=== PATIENT | male | born 1940 | race Caucasian/White ===

== ENCOUNTER 2025-03-15 19:17 | Inpatient (IN) | payer MEDICARE, OTHER, SELFPAY ==
[2025-03-15] VITALS (10 sets, daily range): BP systolic 100–117; BP diastolic 59–85; BMI 39.3; BMI 39.2
--- NOTE | 2025-03-15 11:44 | ED.GENMED ---
ED Provider Triage
<Adalgisa Braun PA-C - Last Filed: 03/15/25 18:20>
-
Patient seen by provider in Triage?: Seen in Triage
Attestation: A medical screening examination has been initiated by a qualified medical provider. Based on the assessment performed at this time, it has been determined that an emergent medical condition may exist and the patient has been informed
that further medical evaluation and possible additional diagnostic testing may be needed.
HPI:
GENERAL: Alert , in no apparent distress
EYE: No visual abnormalities.
NECK: Trachea midline
ENT: No visible abnormalities.
LUNGS: No acute respiratory distress
NEUROLOGICAL: Alert and oriented
SKIN: Skin intact. No visible changes.
MUSCULOSKELETAL: Moving extremities normally
PSYCH: Normal and appropriate interaction.
This is a medical evaluation conducted in person to initiate diagnostic evaluation and provide initial therapeutics. Please see further documentation by the treating clinician.
History of Present Illness
<Adalgisa Braun PA-C - Last Filed: 03/15/25 18:20>
General
Chief Complaint: Blood Pressure Problem
Time Seen by Provider: 03/15/25 14:19
<Kerwin Cui DO - Last Filed: 03/15/25 16:55>
General
Source: patient and family
History of Present Illness
History of Present Illness:
84-year-old male who presents for evaluation after presented to his primary care doctor's office hypotensive. Patient admits he was recently in the hospital for 11 days in [place]. He had atrial fibrillation and was also being evaluated for CLL.
The patient was also anemic. He was put on Eliquis. The patient states he has been profoundly short of breath with exertion. At rest he feels 'okay'. No chest pain. No fevers. Denies melena or hematochezia. Daughter states that they have the
records from this hospitalization in [place] but came back up here to see specialists. Daughter also states that the patient was cardioverted 3 times while in [place]. He was started on amiodarone
Past History
<Kerwin Cui DO - Last Filed: 03/15/25 16:55>
Past History
ED Past Medical History: Arrthythmia (Atrial fibrillation), GERD, HTN and Other (Suspected CLL, bladder stones)
ED Past Surgical History: Urological
Phy Exam
<Kerwin Cui DO - Last Filed: 03/15/25 16:55>
Physical Exam
Physical Exam:
CONSTITUTIONAL Patient alert and oriented to person, place and time. Well-appearing. Vital signs reviewed.
HEAD atraumatic, normocephalic.
EYES eyelids normal to inspection, Extraocular muscles intact, Conjunctiva normal, Sclera normal.
NECK normal range of motion, Trachea midline, no jugular venous distention.
RESPIRATORY CHEST No respiratory distress noted, Chest expansion equal, Bilateral breath sounds clear.
CARDIOVASCULAR irregularly irregular
ABDOMEN abdomen nontender, Bowel sounds normal. Mild distention noted
BACK normal inspection, no obvious deformities
UPPER EXTREMITY range of motion normal, Motor strength normal, no cyanosis, no edema.
LOWER EXTREMITY range of motion normal, Motor strength normal, no cyanosis, bilateral edema.
NEURO Speech normal, No focal motor deficits, [place] coma scale 15, Memory normal, Cranial Nerves intact to screening exam.
SKIN skin warm, dry, and normal in color.
Course
<Adalgisa Braun PA-C - Last Filed: 03/15/25 18:20>
Orders/Labs/Results
Orders:
Orders
03/15/25 11:45
Electrocardiogram (*1) Urgent
Reason for Study: Shortness of Breath
EKG- Treatment ONCE
03/15/25 14:59
Complete Blood Count/With Diff Urgent
Comprehensive Metabolic Panel Urgent
Ferritin Urgent
Comment: ADD ON
Folate Urgent
Comment: ADD ON
Free T4 Urgent
Iron Urgent
Comment: ADD ON
Magnesium Urgent
Manual Differential Urgent
NT-proBNP Urgent
TSH Reflex To Free T4 Urgent
Comment: ADD ON
Total Iron Binding Urgent
Comment: ADD ON
Troponin I Urgent
Vitamin B12 Urgent
Comment: ADD ON
03/15/25 Dinner
Cholesterol Lowering
Fluid Restriction: 1500 mL/day (50 oz)
Cholesterol Lowering: Sodium, 2 Gram
03/15/25 15:16
Add On- LAB Urgent
Tests Added?: tsh w. reflex to free t4
03/15/25 16:30
CR Chest - 2 Views Urgent
Comment:
Reason For Exam: sob
03/15/25 16:51
Furosemide [Lasix] 20 mg IV NOW STA
03/15/25 17:50
Furosemide [Lasix] 20 mg IV NOW STA
03/15/25 17:52
Add On- LAB Routine
Tests Added?: iron, ferritin, tibc, folate, vit b12
03/15/25 17:59
Admit/Transfer Patient As Directed
Co-Sign Provider:
Level of Care: Inpatient admission
Assign to:: Medical/Surgical
Physician / Group: Htay
Diagnosis: CHF
Reason for Hospitalization: IV diuretics
Expected length of stay greater than two midnights?: Yes
ELOS- Estimated Length of Stay in days: 3
I certify the patient meets the requirements for IP care: Yes
PRN Pain Medication Management As Directed
May give lesser potent ordered pain med per pt: Yes
preference::
Protocol:: Medication orders for pain may be administered in a
manner that supports deferring to patient preference
when the pt is:
- Requesting an ordered lesser potent pain medication.
Least to most potent pain medications are defined
as: acetaminophen < NSAID < tramadol < opioids
(morphine, oxycodone, hydromorphone).
- Requesting a lesser dose of the same medication IF
ORDERED.
- Requesting a less intrusive route of administration
if both routes are prescribed by the provider (PO <
IV).
03/15/25 18:01
Code Status As Directed
Resuscitation Status: Full Code
Abnormal Lab Results
03/15/25
14:59
RBC 2.89 L 10^6/uL
(4.70-6.10)
Hgb 8.3 L g/dL
(13.0-18.0)
Hct 26.3 L %
(39.0-52.0)
MCHC 31.6 L g/dL
(33.0-37.0)
RDW 18.7 H %
(11.5-14.5)
Plt Count 90 L 10^3/uL
(130-400)
MPV 12.3 H fL
(7.4-10.4)
Segmented Neutrophils 40 L %
(42-75)
Monocytes (Manual) 23 H %
(2-9)
Sodium 134 L mmol/L
(135-145)
BUN 24 H mg/dl
(9-20)
Creatinine 1.4 H mg/dL
(0.7-1.3)
Glucose 118 H mg/dl
(70-99)
Calcium 7.8 L mg/dl
(8.4-10.2)
AST 13 L U/L
(17-59)
Total Protein 5.3 L g/dl
(6.3-8.2)
Albumin 3.0 L g/dl
(3.5-5.0)
TSH (Reflex) 6.15 H uIU/ml
(0.47-4.68)
03/15/25 14:59
03/15/25 14:59
Vital Signs
Initial and Last Documented VS:
Initial Vital Signs
Temp Pulse Resp BP Pulse Ox
97.8 F 80 18 100/64 96
03/15/25 11:30 03/15/25 11:30 03/15/25 11:30 03/15/25 11:30 03/15/25 11:30
Last Documented Vital Signs
Temp Pulse Resp BP Pulse Ox
97.8 F 78 17 117/85 95
03/15/25 11:30 03/15/25 16:45 03/15/25 16:45 03/15/25 17:45 03/15/25 16:45
<Kerwin Cui, DO - Last Filed: 03/15/25 16:55>
Orders/Labs/Results
Orders:
Orders
03/15/25 11:45
Electrocardiogram (*1) Urgent
Reason for Study: Shortness of Breath
EKG- Treatment ONCE
03/15/25 14:59
Complete Blood Count/With Diff Urgent
Comprehensive Metabolic Panel Urgent
Ferritin Urgent
Comment: ADD ON
Folate Urgent
Comment: ADD ON
Free T4 Urgent
Iron Urgent
Comment: ADD ON
Magnesium Urgent
Manual Differential Urgent
NT-proBNP Urgent
TSH Reflex To Free T4 Urgent
Comment: ADD ON
Total Iron Binding Urgent
Comment: ADD ON
Troponin I Urgent
Vitamin B12 Urgent
Comment: ADD ON
03/15/25 Dinner
Cholesterol Lowering
Fluid Restriction: 1500 mL/day (50 oz)
Cholesterol Lowering: Sodium, 2 Gram
03/15/25 15:16
Add On- LAB Urgent
Tests Added?: tsh w. reflex to free t4
03/15/25 16:30
CR Chest - 2 Views Urgent
Comment:
Reason For Exam: sob
03/15/25 16:51
Furosemide [Lasix] 20 mg IV NOW STA
03/15/25 17:50
Furosemide [Lasix] 20 mg IV NOW STA
03/15/25 17:52
Add On- LAB Routine
Tests Added?: iron, ferritin, tibc, folate, vit b12
03/15/25 17:59
Admit/Transfer Patient As Directed
Co-Sign Provider:
Level of Care: Inpatient admission
Assign to:: Medical/Surgical
Physician / Group: Htay
Diagnosis: CHF
Reason for Hospitalization: IV diuretics
Expected length of stay greater than two midnights?: Yes
ELOS- Estimated Length of Stay in days: 3
I certify the patient meets the requirements for IP care: Yes
PRN Pain Medication Management As Directed
May give lesser potent ordered pain med per pt: Yes
preference::
Protocol:: Medication orders for pain may be administered in a
manner that supports deferring to patient preference
when the pt is:
- Requesting an ordered lesser potent pain medication.
Least to most potent pain medications are defined
as: acetaminophen < NSAID < tramadol < opioids
(morphine, oxycodone, hydromorphone).
- Requesting a lesser dose of the same medication IF
ORDERED.
- Requesting a less intrusive route of administration
if both routes are prescribed by the provider (PO <
IV).
03/15/25 18:01
Code Status As Directed
Resuscitation Status: Full Code
Abnormal Lab Results
03/15/25
14:59
RBC 2.89 L 10^6/uL
(4.70-6.10)
Hgb 8.3 L g/dL
(13.0-18.0)
Hct 26.3 L %
(39.0-52.0)
MCHC 31.6 L g/dL
(33.0-37.0)
RDW 18.7 H %
(11.5-14.5)
Plt Count 90 L 10^3/uL
(130-400)
MPV 12.3 H fL
(7.4-10.4)
Segmented Neutrophils 40 L %
(42-75)
Monocytes (Manual) 23 H %
(2-9)
Sodium 134 L mmol/L
(135-145)
BUN 24 H mg/dl
(9-20)
Creatinine 1.4 H mg/dL
(0.7-1.3)
Glucose 118 H mg/dl
(70-99)
Calcium 7.8 L mg/dl
(8.4-10.2)
AST 13 L U/L
(17-59)
Total Protein 5.3 L g/dl
(6.3-8.2)
Albumin 3.0 L g/dl
(3.5-5.0)
TSH (Reflex) 6.15 H uIU/ml
(0.47-4.68)
03/15/25 14:59
03/15/25 14:59
Vital Signs
Initial and Last Documented VS:
Initial Vital Signs
Temp Pulse Resp BP Pulse Ox
97.8 F 80 18 100/64 96
03/15/25 11:30 03/15/25 11:30 03/15/25 11:30 03/15/25 11:30 03/15/25 11:30
Last Documented Vital Signs
Temp Pulse Resp BP Pulse Ox
97.8 F 78 17 117/85 95
03/15/25 11:30 03/15/25 16:45 03/15/25 16:45 03/15/25 17:45 03/15/25 16:45
<DO Jose Mcdermott Last Filed: 03/15/25 16:55>
MDM/Problems Addressed
Differential Diagnosis Includes:
Symptomatic anemia, atrial fibrillation, CLL, sepsis, dehydration, electrolyte imbalance
MDM/Problems Addressed:
Atrial fibrillation
<DO Jose Mcdermott Last Filed: 03/15/25 16:55>
*Pulse Oximetry
Patient hypoxic: no
*EKG
Interpreted by ED Provider?: Yes
Interpretation: abnormal
Rate: normal
Rhythm: a-fib
[place]: normal axis
QRS Pattern: low voltage
Ischemia: non-specific ST changes
*Pillowcase Maker Interpretation
Rate: normal
Interpretation: abnormal
Rhythm: a-fib
*Critical Care Note
Total Time (30-74mins, 75-104mins- exclusive of procedures): Not Applicable
Data Reviewed
Review of Other/Old Records Reveals: Other (Recent discharge paperwork from March 2025/[place] reviewed revealing patient being on amiodarone and Eliquis)
Source: patient and family
Prescriptions/Medications Considered But Not Given:
Consider Lasix given edema and shortness of breath but in light of his relative hypotension, hold off
<DO Jose Mcdermott Last Filed: 03/15/25 16:55>
Patient Management
Discussion with other providers: Hospitalist
Escalation/DeEscalation of care consider admission/obs:
84-year-old male who presents with persistent dyspnea on exertion. Recent hospitalization at an outside hospital found A-fib and possible CLL. Patient states that shortness of breath is persistent progressive cannot walk 10 feet without being
extremely short of breath. Found to be hypotensive in PCP office. Does appear to have volume overload. Blood pressure little better and will lightly diurese. Admit. Likely could benefit from being converted to normal sinus rhythm but apparently
recently failed cardioversion. Hemoglobin better from recent admission
ED Attending Note
<Adalgisa Braun PA-C - Last Filed: 03/15/25 18:20>
-
Portions of this chart may have been created with voice recognition software.� Occasional wrong word or��sound alike� substitutions may have occurred due to the inherent limitations of voice recognition software.
Discharge Plan
Departure
Patient Disposition: Admit
Date of Disposition: 03/15/25
Time of Disposition: 16:55
Admit to: Telemetry
Presentation/result/management discussed w/ accepting MD/DO: Hospitalist
Discharge Problem:
Congestive heart failure, Atrial fibrillation
Prescriptions:
No Action
amiodarone 200 mg Tablet
200 mg PO DAILY
sodium bicarbonate 650 mg Tablet
650 mg PO TID
timolol 0.5 % Drops
1 drp LEFT EYE BID
ferrous sulfate 325 mg (65 mg iron) Tablet
325 mg PO DAILY
metoprolol succinate [Toprol XL] 25 mg Tablet Extended Release 24 Hr
75 mg PO BID
albuterol sulfate [ProAir HFA] 90 mcg/actuation Hfa Aerosol Inhaler
2 puff INHALATION R Q6HPRN PRN (Reason: sob)
omeprazole 20 mg Tablet,Delayed Release (Dr/Ec)
20 mg PO DAILY
melatonin 5 mg Tablet
5 mg PO HSPRN PRN (Reason: sleep)
Eliquis 5 mg Tablet
5 mg PO BID
guaifenesin [Mucinex] 600 mg Tablet Extended Release 12hr
600 mg PO BIDPRN PRN (Reason: cough)
Glucosamine Chondroitin 550-30-1 mg Capsule
1 cap PO DAILY
Referrals:
Gualberto Felix MD [Family Provider] -
Interventions
Interventions:
*Risk Screen - Suicide Last Done: 03/15/25 11:30
*General Assessment Last Done: 03/15/25 11:30
*Neglect/Abuse Screening Last Done: 03/15/25 14:01
*ED- Fall Risk Assessment Last Done: 03/15/25 14:00
*ED COVID-19 Vaccine History Last Done: 03/15/25 11:30
ED- Cardiac Assessment Last Done: 03/15/25 14:01
ED- Neurological Assessment Last Done: 03/15/25 14:02
ED- Pulmonary Assessment Last Done: 03/15/25 14:03
Discharge Date and Time
Print Language: SWEDISH
[2025-03-15 15:24] LABS: ALT (SGPT) 13 U/L (0-50); AST (SGOT) 13 U/L (17-59); Alkaline Phosphatase 84 U/L (38-126); Blood Urea Nitrogen 24 mg/dl (9-20); Calcium 7.8 mg/dl (8.4-10.2); Carbon Dioxide 24 mmol/L (22-30); Chloride 106 mmol/L (98-107); Estimated Creatinine Clearance 54 ml/min; Glucose 118 mg/dl (70-99); Hematocrit 26.3 % (39.0-52.0); Hemoglobin 8.3 g/dL (13.0-18.0); Magnesium 1.8 mg/dl (1.6-2.3); Mean Corp Hgb Conc. 31.6 g/dL (33.0-37.0); Mean Corpuscular Hgb 28.7 pg (27.0-31.0); Mean Platelet Volume 12.3 fL (7.4-10.4); Platelet Count 90 10^3/uL (130-400); Potassium 4.5 mmol/L (3.5-5.1); Red Blood Cell Count 2.89 10^6/uL (4.70-6.10); Red Cell Dist. Width 18.7 % (11.5-14.5); Sodium 134 mmol/L (135-145); Total Protein 5.3 g/dl (6.3-8.2); White Blood Cell Count 9.3 10^3/uL (4.8-10.8); eGFR 50.18
[2025-03-15 15:35] LABS: NT-proBNP 4460 pg/ml; Troponin I < 0.012 ng/ml
[2025-03-15 16:00] LABS: Absolute Neutrophils -Man Diff 3.7 10^3/uL (1.4-6.5); Anisocytosis 1+; Band Neutrophils 0 % (0-3); Hypochromasia 2+; Lymphocytes 37 % (20-51); Macrocytosis 1+; Monocytes 23 % (2-9); Normal RBC Morphology No; Platelets Checked Yes; Polychromasia Occasional; Segmented Neutrophils 40 % (42-75); Total Cells Counted 100
--- NOTE | 2025-03-15 17:21 | HPS.HSE ---
Family Physician
-
Family Physician: Gualberto Felix
Chief Complaint
-
Dyspnea on Exertion
History of Present Illness
Patient is an 84 y/o male past medical history of atrial fibrillation, hypertension, peripheral neuropathy and possible CLL who presents with dyspnea on exertion. Patient reports he was hospitalized in [place] for 11 days due to atrial
fibrillation, and started an evaluation for possible CLL. Patient was cardioverted 3 times during that hospitalization. Patient reports since discharge he has been experiencing increasing dyspnea on exertion. Family notes increasing abdominal
distention and increasing lower extremity edema. He denies any shortness of breath at rest, orthopnea or chest pain.
Medical History
Past Medical History
Past Medical History: Reports Other
Additional Past Medical History:
Atrial Fibrillation
Essential Hypertension
Peripheral Neuropathy
CKD Stage IIIA
Chronic Metabolic Acidosis
GERD / Barahona's Esophagus
Past Surgical History: Reports Other
Additional Past Surgical History:
Bladder Stone
TURP
Colon Resection
Social History
Tobacco: Former Smoker (Quit cigarettes about 30 years. Quit cigars about 15 years ago)
Alcohol: Other (Rare alcohol use, less than once per month)
Family History
Family History: Not pertinent
Allergies / Home Medications
Allergies reflects when Allergies were last updated in [employer].
Home Medications with original date entered in [employer]
Allergy/Medication List:
Allergies
Allergy/AdvReac Type Severity Reaction Status Date / Time
No Known Allergies Allergy Unverified 03/15/25 11:38
Home Medications
albuterol sulfate 90 mcg/actuation aerosol inhaler 2 puff inhalation R Q6HPRN PRN sob 03/15/25
amiodarone 200 mg tablet 200 mg PO DAILY 03/15/25
apixaban 5 mg tablet (Eliquis) 5 mg PO BID 03/15/25
ferrous sulfate 325 mg (65 mg iron) tablet 325 mg PO DAILY 03/15/25
glucosamine sulf dipot chlr,msm,chond 550 mg-C 30 mg-kvng 1 mg capsule (Glucosamine Chondroitin) 1 cap PO DAILY 03/15/25
guaifenesin 600 mg tablet, extended release 12 hr (Mucinex) 600 mg PO BIDPRN PRN cough 03/15/25
melatonin 5 mg tablet 5 mg PO HSPRN PRN sleep 03/15/25
metoprolol succinate 25 mg tablet,extended release 24 hr (Toprol XL) 75 mg PO BID 03/15/25
omeprazole 20 mg tablet,delayed release 20 mg PO DAILY 03/15/25
sodium bicarbonate 650 mg tablet 650 mg PO TID 03/15/25
timolol 0.5 % eye drops 1 drp LEFT EYE BID 03/15/25
Review of Systems
-
History Source: Patient
A 12 point ROS was completed and negative except as noted: Yes
Constitutional: Denies Fever or Chills
Respiratory: Denies Cough or Trouble Breathing
Cardiac: Denies Chest Pain or Palpitations
Abdomen/GI: Denies Abdominal Pain, Nausea, Vomiting, Diarrhea or Constipated
Physical Exam
Vital Signs
Vital Signs
Temp Pulse Resp BP Pulse Ox
97.8 F 79 17 115/75 95
03/15/25 11:30 03/15/25 16:15 03/15/25 16:15 03/15/25 16:00 03/15/25 16:15
Physical Exam
General: Comfortable and Conversant
HEENT: Anicteric and Moist mucous membranes
Respiratory: Rales (Fine faint rales bilateral), Non Labored Respirations and Decreased Breath Sounds (Bilateral Bases)
Cardiac: S1/S2 and Irregular Rhythm; No Tachycardia
GI: Soft, Non Tender and Other (Protuberant)
Rectal: Deferred by Provider
Musculoskeletal: No Clubbing, No Cyanosis and Other (+3 pitting edema bilateral lower extremity)
Skin: Warm and Dry
Neuro: Awake, Alert, Oriented and Nonfocal/grossly intact
Psych: Calm
Laboratory Results
-
03/15/25 14:59
03/15/25 14:59
Laboratory Results
Total Bilirubin 1.0 mg/dl (0.2-1.3) 03/15/25 14:59
AST 13 U/L (17-59) L 03/15/25 14:59
ALT 13 U/L (0-50) 03/15/25 14:59
Alkaline Phosphatase 84 U/L (38-126) 03/15/25 14:59
Troponin I < 0.012 ng/ml 03/15/25 14:59
Chest X-Ray:
Small bilateral pleural effusions
Data Reviewed
-
Diagnostic Radiology: Report Reviewed by me
Lab Data: Labs Reviewed by me
Old Records: Reviewed
Impression/Plan
-
Acute Heart Failure, unknown type
-Consult Cardiology
-Check Echocardiogram
-Continue Lasix 40mg IV Daily
-Monitor Is&Os and Daily Weights
Atrial Fibrillation, suspect persistent
-Continue Eliquis for anticoagulation
-Continue amiodarone and metoprolol for rate/rhythm control
Normocytic Anemia / Thrombocytopenia
-Per family while in ID there was concern raised about possible CLL
-Check iron studies, vitamin b12 and folic acid
-Monitor counts
-Consider hematology consult inpatient vs outpatient
Essential Hypertension
-Continue metoprolol with hold parameters
CKD Stage IIIA
-Reviewed prior labs with baseline Cr 1.4 dating back to 2019
-Monitor creatinine closely while on diuretics
GERD / Barahona's Esophagus
-Continue Protonix
Class II Obesity due to Excess Calories
Suspected Obstructive Sleep Apnea
-Encourage weight loss
-Recommend sleep study as outpatient
DVT proph: Eliquis
Code Status: Full Code
[2025-03-15 17:33] LABS: TSH Reflex To Free T4 6.15 uIU/ml (0.47-4.68)
--- NOTE | 2025-03-15 17:39 | W.PN.UPDATE ---
Update Note
Progress Note Update
This note serves as an addendum to the H&P by felt finishing supervisor FARHAT Fabiola SPEAR
HPI
84M HX A Fib, HTN , suspected CLL , Bladder stones seen at ER
- evaluation hypotensive after seen at PCP office
- recently in the hospital for 11 days in [place] for atrial fibrillation and was also being evaluated for CLL.
- was put on Eliquis
- Daughter reposts s/p CV times 3 while in [place] and started on amiodarone
- reports profoundly SoB with exertion, but at resy is OK
Of note: Daughter states that they have the records from this hospitalization in [place] but came back up here to see specialists.
ROS
No chest pain.
No fevers.
Denies melena or hematochezia.
Vital Signs
Temp Pulse Resp BP Pulse Ox
97.8 F 78 17 115/75 95
03/15/25 11:30 03/15/25 16:45 03/15/25 16:45 03/15/25 16:00 03/15/25 16:45
PE
Gen: Morbidly obese , dyspneic with minimal exertion, orthopnic
HEENT: anicteric
Neck: supple
Lungs: b/l diffuse crakles
Cor: irrgeular
Abdomen: obese
BUCKLE GLUER: AAO3
MS: significant Foreign edema
Psych: normal mood and affect
Labs
03/15/25
14:59
WBC 9.3
Hgb 8.3 L
Plt Count 90 L
Segmented Neutrophils 40 L
Band Neutrophils 0
Lymphocytes (Manual) 37
Monocytes (Manual) 23 H
Sodium 134 L
BUN 24 H
Creatinine 1.4 H
eGFR 50.18
Glucose 118 H
Calcium 7.8 L
Troponin I < 0.012
[id number] Pept 4460
Albumin 3.0 L
TSH (Reflex) 6.15 H
EKG
ATRIAL FIBRILLATION
LOW VOLTAGE QRS
NONSPECIFIC T WAVE ABNORMALITY
PROLONGED QT
ABNORMAL ECG
WHEN COMPARED WITH ECG OF 22-APR-2006 07:55,
ATRIAL FIBRILLATION HAS REPLACED SINUS RHYTHM
VENT. RATE HAS INCREASED BY 35 BPM
T WAVE INVERSION NOW EVIDENT IN ANTERIOR LEADS
QT HAS LENGTHENED
Confirmed by MYRTLE ESPARZA MD, NAYE ([id number]) on 03/15/2025 5:27:38 PM
CXR
Small bilateral pleural effusions.
Bibasilar opacities favored to represent atelectasis, although mild pneumonia could be considered in the appropriate clinical setting.
NO PRIOR hospitalist admission:
ASSESSMENT & PLAN
Acute CHF type unknown type
Expanded volume
Associated severe [place] , Not orthopneic
Significant Foreign edema
B/l pleural effusion
Elevated proBNP
- IV Lasix 40 daily
- Daily wt, IOs and BNP
- ECHO in AM
- CBC card consult
Paroxysmal A Fib
- control VR on Amiodarone
- on OSTEOPATHIC PHYSICIAN Eliquis
Stable CKD3 - baseline Cr 1.4
- Trend Cr with IV diuresis
Normocytic Anemia with Hgb 8.3 - no prior baseline Hgb in [employer]
Thrombocytopenia platelet 90s - no prior baselinePlatelet in [employer]
40% segmented neutrophils and 23 % monocytes
DDX: leukemia ?
Question of CLL in OSH at [place]
- Hematology consult
DVT Px:on Eliquis
Full code
IP TLM
[2025-03-15] MEDS: LASIX 20 MG IV ×2 (17:47→18:26)
[2025-03-15 18:02] LABS: Free T4 1.19 ng/dl (0.78-2.19)
[2025-03-15 18:32] LABS: Iron 36 ug/dl (49-181)
[2025-03-15 18:41] LABS: Percent Saturation 15 % (20-50); Total Iron Binding Capacity 227 ug/dl (261-462)
[2025-03-15 19:22] LABS: Folate 12.4 ng/ml (2.76-20); Vitamin B12 709 pg/ml (239-931)
--- NOTE | 2025-03-15 21:30 | TRANSFER ---
pt arrived via stretcher accompanied by ED staff. pt ambulated from stretcher to bed with standby assist. VSS, no complaints at this time. call azevedo within reach, will continue to monitor.
[2025-03-15] MEDS: TOPROL XL 75 MG PO (22:19)
[2025-03-15] MEDS: ELIQUIS 5 MG PO (22:19)
[2025-03-15] MEDS: SODIUM BICARBONATE 650 MG PO (22:21)
[2025-03-15] MEDS: DUONEB 3 ML INH (23:10)
[2025-03-16 03:17] VITALS: BP 102/69
[2025-03-16 06:00] VITALS: BMI 38.6
[2025-03-16 07:04] LABS: Blood Urea Nitrogen 26 mg/dl (9-20); Carbon Dioxide 24 mmol/L (22-30); Chloride 109 mmol/L (98-107); Estimated Creatinine Clearance 53 ml/min; Glucose 120 mg/dl (70-99); HDL Cholesterol 9 mg/dl; LDL Cholesterol, Calculated 26 mg/dl; Magnesium 1.7 mg/dl (1.6-2.3); Potassium 4.3 mmol/L (3.5-5.1); Sodium 137 mmol/L (135-145); Total Cholesterol 57 mg/dl (50-199); Triglyceride 111 mg/dl (10-149); Very Low Density Lipoprotein 22 mg/dl (0-30); eGFR 50.18
[2025-03-16 07:07] LABS: Hematocrit 26.5 % (39.0-52.0); Hemoglobin 8.4 g/dL (13.0-18.0); Mean Corp Hgb Conc. 31.7 g/dL (33.0-37.0); Mean Corpuscular Hgb 28.4 pg (27.0-31.0); Mean Corpuscular Volume 89.5 fL (80.0-94.0); Mean Platelet Volume 11.6 fL (7.4-10.4); Platelet Count 80 10^3/uL (130-400); Red Blood Cell Count 2.96 10^6/uL (4.70-6.10); Red Cell Dist. Width 18.6 % (11.5-14.5)
[2025-03-16 08:51] VITALS: BP 134/75
[2025-03-16] MEDS: ELIQUIS 5 MG PO ×2 (08:53→20:31)
[2025-03-16] MEDS: PROTONIX 40 MG PO (08:53)
[2025-03-16] MEDS: TOPROL XL 75 MG PO ×2 (08:53→20:29)
[2025-03-16] MEDS: PACERONE 200 MG PO (08:53)
[2025-03-16] MEDS: SODIUM BICARBONATE 650 MG PO ×3 (08:53→20:31)
[2025-03-16] MEDS: LASIX 40 MG IV ×2 (08:54→16:04)
[2025-03-16] MEDS: FEOSOL 325 MG PO (08:54)
--- NOTE | 2025-03-16 09:57 | CON.ONC ---
Consultation
-
Date Consultation Requested: 03/15/25
Date Consultation Performed: 03/16/25
Requesting Provider: Dr. Yandel Jerez
Performing Provider: Dr. Pricilla Rivera
Reason for Consultation: abnormal CBC
Impression
Impression
anemia, thrombocytopenia, monocytosis
CHF exacerbation
afib
Plan
Plan
Bone marrow biopsy results have been requested from [facility]
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
Would transfuse as clinically indicated
Mgmt of cardiac issues per primary team/cardiology
Anticipate outpatient heme/oncology f/u to consider treatment versus observation pending BM bx results and clinical status
Patient History
History of Present Illness
This is an 84 yo man, who lives in [place] but has family and doctors in [place], who was recently admitted to [facility] with new afib/CHF, requiring cardioversion, diuresis, and medication adjustments. He was noted to have new
cytopenias, for which he underwent bone marrow biopsy last week and was transfused 1u PRBCs. Per family, he was told he has CLL. Records have been requested. He was discharged, then travelled to [place], and presented to the ER at with recurrent CHF
symptoms, for which he's been admitted.
CBC is noted for WBC of 7, hgb 8.4, MCV 89.5, and platelets of 80. Monocytes are 23%. No deficiency of iron, B12, folate.
He denies bleeding, recent illnesses or infections.
He reports yearly CBC is done each summer by Dr. Felix. He was never told the results were abnormal.
Past-Medical/Surgical History
Past Medical History
Past Medical History: Reports Other
Additional Past Medical History:
Atrial Fibrillation
Essential Hypertension
Peripheral Neuropathy
CKD Stage IIIA
Chronic Metabolic Acidosis
GERD / Barahona's Esophagus
Past Surgical History: Reports Other
Additional Past Surgical History:
Bladder Stone
TURP
Colon Resection
Social History
Tobacco: Former Smoker (Quit cigarettes about 30 years. Quit cigars about 15 years ago)
Alcohol: Other (Rare alcohol use, less than once per month)
Family History
Family History: Not pertinent
Patient Medication
�Medication �Instructions �Recorded �Confirmed �Last Taken �Type
albuterol sulfate 90 mcg/actuation 2 puff inhalation R Q6HPRN PRN sob 03/15/25 03/15/25 Unknown History
aerosol inhaler
amiodarone 200 mg tablet 200 mg PO DAILY Heart 03/15/25 03/15/25 03/15/25 History
Disease/Condition
apixaban 5 mg tablet (Eliquis) 5 mg PO BID Blood Clot 03/15/25 03/15/25 03/15/25 History
Prevention/Tx
ferrous sulfate 325 mg (65 mg 325 mg PO DAILY Supplement 03/15/25 03/15/25 Unknown History
iron) tablet
glucosamine sulf dipot 1 cap PO DAILY Supplement 03/15/25 03/15/25 Unknown History
chlr,msm,chond 550 mg-C 30 mg-kvng
1 mg capsule (Glucosamine
Chondroitin)
guaifenesin 600 mg tablet, 600 mg PO BIDPRN PRN cough 03/15/25 03/15/25 03/15/25 History
extended release 12 hr (Mucinex)
melatonin 5 mg tablet 5 mg PO HSPRN PRN sleep 03/15/25 03/15/25 Unknown History
metoprolol succinate 25 mg 75 mg PO BID Heart 03/15/25 03/15/25 03/15/25 History
tablet,extended release 24 hr Disease/Condition
(Toprol XL)
omeprazole 20 mg tablet,delayed 20 mg PO DAILY Gastrointestinal 03/15/25 03/15/25 03/15/25 History
release Issue
sodium bicarbonate 650 mg tablet 650 mg PO TID Supplement 03/15/25 03/15/25 03/15/25 History
timolol 0.5 % eye drops 1 drp LEFT EYE BID Eye Condition 03/15/25 03/15/25 03/14/25 History
Active Medications
Generic Name Dose Route Start Last Admin
Trade Name Freq PRN Reason Stop Dose Admin
Albuterol/Ipratropium 3 ml 03/15/25 21:07 03/15/25 23:10
Ipratropium 0.5/Albuterol 3 Mg (3 Ml Ampul) INH 3 ml
R Q4HPRN PRN Administration
shortness of breath/wheeze
Protocol
Amiodarone HCl 200 mg 03/16/25 08:00 03/16/25 08:53
Amiodarone 200 Mg Tablet PO 04/13/25 07:59 200 mg
DAILY TRISTEN Administration
Apixaban 5 mg 03/15/25 21:07 03/16/25 08:53
Apixaban (Eliquis) 5 Mg Tablet PO 04/12/25 21:06 5 mg
BID TRISTEN Administration
Ferrous Sulfate 325 mg 03/16/25 08:00 03/16/25 08:54
Ferrous Sulfate 325 Mg Tablet PO 04/13/25 07:59 325 mg
DAILY TRISTEN Administration
Furosemide 40 mg 03/16/25 08:00 03/16/25 08:54
Furosemide 40 Mg (10 Mg/Ml) 4 Ml Vial IV 04/13/25 07:59 40 mg
DAILY TRISTEN Administration
Melatonin 5 mg 03/15/25 21:07
Melatonin 5 Mg Tablet PO 04/12/25 21:06
HSPRN PRN
sleep
Metoprolol Succinate 75 mg 03/15/25 21:07 03/16/25 08:53
Metoprolol 25 Mg Extended Release Tablet PO 04/12/25 21:06 75 mg
BID TRISTEN Administration
Pantoprazole Sodium 40 mg 03/16/25 08:00 03/16/25 08:53
Pantoprazole 40 Mg Delayed Release Tablet PO 04/13/25 07:59 40 mg
DAILY TRISTEN Administration
Sodium Bicarbonate 650 mg 03/15/25 22:00 05/13/25 08:53
Sodium Bicarbonate 650 Mg Tablet PO 04/12/25 21:59 650 mg
TID TRISTEN Administration
Sodium Chloride 0 flush 03/15/25 22:00
Sodium Chloride 0.9% (Flush) Syringe IV 04/12/25 21:59
PER PROTOCOL TRISTEN
Review of Systems
-
All Other Systems: Not reviewed unless documented
Physical Exam
-
General: Well Developed, Well Nourished, No Apparent Distress and Comfortable
HEENT: Moist Mucous Membranes
Cardiology: Normal Sinus Rhythm
Neurology: Non Focal, No Lateralizing Symptoms and No Word Finding Difficulty
Skin: Warm and Dry
Psych: Calm and Intact Judgement/Insight
Labs
Lab Results
WBC 7.0 10^3/uL (4.8-10.8) 03/16/25 06:21
RBC 2.96 10^6/uL (4.70-6.10) L 03/16/25 06:21
Hgb 8.4 g/dL (13.0-18.0) L 03/16/25 06:21
Hct 26.5 % (39.0-52.0) L 03/16/25 06:21
MCV 89.5 fL (80.0-94.0) 03/16/25 06:21
MCH 28.4 pg (27.0-31.0) 03/16/25 06:21
MCHC 31.7 g/dL (33.0-37.0) L 03/16/25 06:21
RDW 18.6 % (11.5-14.5) H 03/16/25 06:21
Plt Count 80 10^3/uL (130-400) L 03/16/25 06:21
MPV 11.6 fL (7.4-10.4) H 03/16/25 06:21
Creatinine 1.4 mg/dL (0.7-1.3) H 03/16/25 06:21
Vital Signs
Vital Signs
Temp Pulse Resp BP Pulse Ox
98.2 F 86 18 134/75 95
03/16/25 08:51 03/16/25 08:53 03/16/25 08:51 03/16/25 08:53 03/16/25 08:51
--- NOTE | 2025-03-16 10:55 | CON.CAR ---
Addendum entered and electronically signed by Dre Conley MD 03/16/25 14:32:
I saw and examined the patient.
DR Smart's note was reviewed and I agree with the note.
Comment: 84-year-old male with history of recently diagnosed A-fib, hypertension, CLL(recently diagnosed), hypertension, chronic metabolic acidosis, peripheral neuropathy GERD/Barahona's esophagus, who was sent to the ED from his PCPs office for
hypotension and shortness of breath.
HFpEF: IV diuresis orona [id number]
Original Note:
Consultation
Consultation Request
Date/Time Consultation Requested: 03/05/2025/21:07
Date/Time Consultation Performed: 03/06/2025/08:00
Requesting Provider: Anu Singh PA-C
Performing Provider: Dre Conley MD
Reason for Consultation: Acute heart failure, Afib
Medical History
-
Chief Complaint: SOB, Hypotension
History of Present Illness:
84-year-old male with history of recently diagnosed A-fib, hypertension, CLL(recently diagnosed), hypertension, chronic metabolic acidosis, peripheral neuropathy GERD/Barahona's esophagus, who was sent to the ED from his PCPs office for hypotension
and shortness of breath.
He was recently hospitalized in [place] after he presented for shortness of breath, pallor, and Afib on outpatient EKG. During that admission he was diagnosed with A-fib and CLL (after bone marrow biopsy). A-fib was treated with cardioversion x 3
with no success, he was placed on an amiodarone drip and converted to p.o. He has since been on amiodarone 200 mg p.o. daily and Eliquis. He does not recall ever successfully converting to sinus rhythm before discharge. He reports persistent
shortness of breath throughout that admission and since discharge.
After he was released on 03/11, he came back to the area and went in for annual physical with his PCP his BP was found to be low (80s/50s) and given recent hospitalization and ongoing SOB, he was sent to the ED. He reports
Upon arrival, vitals were stable, he appeared to be fluid overloaded. Trop normal. EKG with controlled rate afib and slightly prolonged QTc. ProBNP 4460. CXR with small bilateral pleural effusions. He was started on IV lasix in the ED. Cardiology
has been consulted to assist with management.
Past Medical History
Past Medical History: Arrhythmias (Afib), GERD, HTN and Other (CLL, bladder stones, peripheral neuropathy, chronic metabolic acidosis, )
Past Surgical History: Bowel Resection (colon) and Urological (TURP, bladder stone)
Social History
Tobacco: Former Smoker
Alcohol: Other (rare)
Family History
Family History: Reviewed & Not Pertinent
Allergies / Home Medications
Allergy/AdvReac Type Severity Reaction Status Date / Time
No Known Allergies Allergy Unverified 03/15/25 11:38
�Medication �Instructions �Recorded �Confirmed �Type
albuterol sulfate 90 mcg/actuation 2 puff inhalation R Q6HPRN PRN sob 03/15/25 03/15/25 History
aerosol inhaler
amiodarone 200 mg tablet 200 mg PO DAILY Heart 03/15/25 03/15/25 History
Disease/Condition
apixaban 5 mg tablet (Eliquis) 5 mg PO BID Blood Clot 03/15/25 03/15/25 History
Prevention/Tx
ferrous sulfate 325 mg (65 mg 325 mg PO DAILY Supplement 03/15/25 03/15/25 History
iron) tablet
glucosamine sulf dipot 1 cap PO DAILY Supplement 03/15/25 03/15/25 History
chlr,msm,chond 550 mg-C 30 mg-kvng
1 mg capsule (Glucosamine
Chondroitin)
guaifenesin 600 mg tablet, 600 mg PO BIDPRN PRN cough 03/15/25 03/15/25 History
extended release 12 hr (Mucinex)
melatonin 5 mg tablet 5 mg PO HSPRN PRN sleep 03/15/25 03/15/25 History
metoprolol succinate 25 mg 75 mg PO BID Heart 03/15/25 03/15/25 History
tablet,extended release 24 hr Disease/Condition
(Toprol XL)
omeprazole 20 mg tablet,delayed 20 mg PO DAILY Gastrointestinal 03/15/25 03/15/25 History
release Issue
sodium bicarbonate 650 mg tablet 650 mg PO TID Supplement 03/15/25 03/15/25 History
timolol 0.5 % eye drops 1 drp LEFT EYE BID Eye Condition 03/15/25 03/15/25 History
Review of Systems
-
History Source: Patient
Respiratory: Other (no dyspnea at rest)
Cardiac: Other (no chest pain or palpitations)
Abdomen/GI: Other (Abdominal distention)
Physical Exam
Vital Signs
Temp Pulse Resp BP Pulse Ox
98.2 F 86 18 134/75 95
03/16/25 08:51 03/16/25 08:53 03/16/25 08:51 03/16/25 08:53 03/16/25 08:51
Lab Results
03/16/25 06:21
03/16/25 06:21
Troponin I < 0.012 ng/ml 03/15/25 14:59
Yxv-H-Facwdgmjkva Pept 4460 pg/ml 03/15/25 14:59
Physical Exam
General: Well Nourished, No Apparent Distress, Comfortable and Other (obese); Negative Respiratory Distress
Respiratory: Crackles (bibasilar crackles), Non Labored Respirations and Other (mildly reduced bibasilar lung sounds); Negative Wheezes or Rhonchi
Cardiac: S1/S2, Irregular Rhythm, Peripheral Edema (2+ LE bilaterally ) and JVD; Negative Murmur or Rub
GI: Non Tender, Normal Bowel Sounds and Distended
Genito-urinary: No Costovertebral Tender
Skin: Warm and Dry
Neuro: Awake, Alert and Oriented
Psych: Calm
Impression / Plan
-
84-year-old male with history of recently diagnosed A-fib, hypertension, CLL(recently diagnosed), hypertension, chronic metabolic acidosis, peripheral neuropathy GERD/Barahona's esophagus, who presents with Acute Heart failure.
Acute HFpEF:
- EF 55-60%
- Increase lasix to 40mg IV BID
- Continue Metoprolol
- Follow daily weights, strict IandO and BMP. Telemetry while diuresing
Persistent Afib:
S/p cardioversion x3 with no return to SR at other hospital. Appears that patient has been in afib since prior admission and potentially longer
- No plans for further procedures.
- Discontinue Amioderone
- Rate control with goal HR of 110 or less
- Continue Eliquis and Metoprolol
Essential hypertension:
- continue Metoprolol with holding parameters.
CKD stage 3A:
- At baseline Cr.
Echo 03/16:
Normal size and function with no regional wall motion abnormalities.
LVEF is 55-60% by visual estimation. Mild concentric LVH.
Normal right ventricular size and function.
Mild mitral regurgitation.
Insufficient TR for estimation of PASP.
No prior study available for comparison.
[2025-03-16 11:50] VITALS: BP 123/79
--- NOTE | 2025-03-16 12:40 | W.PN.HOSP.TC ---
Today's Communication/Plan
-
see plan
Assessment / Plan
Assessment / Plan
Gen: NAD, AAOx3.
Eyes: EOMI, PERRLA, no scleral icterus.
Neck: supple.
CV: irreg/irreg, +S1/S2, no m/r/g.
Resp: CTAB, no rales, wheezes, or rhonchi.
Abd: +BS, soft, NT, ND
Skin: No rashes. 1+ B/L LE edema
Neuro: CN 2-12 intact, non-focal.
Psych: Normal mood and affect.
CXR: Small bilateral pleural effusions. Bibasilar opacities favored to represent atelectasis, although mild pneumonia could be considered in the appropriate clinical setting.
Echo: Normal size and function with no regional wall motion abnormalities. LVEF is 55-60% by visual estimation. Mild concentric LVH. Normal right ventricular size and function. Mild mitral regurgitation. Insufficient TR for estimation of PASP. No
prior study available for comparison.
Acute HFpEF:
-cardiology following
-echo above
-cont IV lasix
-daily wts, I/Os
Persistent Atrial Fibrillation:
-cont Eliquis/BB
Normocytic Anemia / Thrombocytopenia
-Per family while in [place] there was concern raised about possible CLL
-counts stable, cont outpt w/u
Essential Hypertension:
-cont BB
Other problems:
CKD3a
GERD with h/o Barahona's Esophagus: cont PPI
Obesity due to Excess Calories
Suspected Obstructive Sleep Apnea
Family updated at bedside.
FULL/Eliquis
Anticipated Discharge: 24 - 48 hours
Subjective/Interval History
-
Date of Service: March 16, 2025
Denies SOB at rest.
Objective Data
-
Labs:
Laboratory Results
03/16/25
06:21
WBC 7.0
Hgb 8.4 L
Hct 26.5 L
Plt Count 80 L
Sodium 137
Potassium 4.3
Chloride 109 H
Carbon Dioxide 24
BUN 26 H
Creatinine 1.4 H
Glucose 120 H
Calcium 8.0 L
Vital Signs:
Vital Signs
Temp Pulse Resp BP Pulse Ox
97.7 F 98 18 123/79 98
03/16/25 11:50 03/16/25 11:50 03/16/25 11:50 03/16/25 11:50 03/16/25 11:50
I&O
03/15/25 03/16/25 03/17/25
06:59 06:59 06:59
Intake Total 240 / 240
Output Total 1000 / 1000 2800 / 2800
Balance -1000 / -1000 -2560 / -2560
[2025-03-16 15:29] VITALS: BP 107/75
--- NOTE | 2025-03-16 16:48 | CM ---
Met with patient to obtain information for assessment. Patient stated that he lives in [place] by himself but is often up in [place] visiting his daughter and family. Right now he is in an in law suite with 2 steps to enter. He described himself as
independent with his ADLs, personal care, dressing and bathing. He drives and can still get to his appointments and does all of his own shopping. He has a shower chair and a raised toilet seat. He has never had VN. He has not been to a SNF.
Patient has a prescription plan and uses, [facility] in [place] for all of his medications.
Patient's PCP is, Hunter Felix.
Plan: Case management will continue to follow and assist with discharge planning. Most likely home with daughter.
[2025-03-16 19:40] VITALS: BP 109/66
[2025-03-16] MEDS: MELATONIN 5 MG PO (20:39)
[2025-03-16] MEDS: MUCINEX 600 MG PO (21:15)
[2025-03-16 23:55] VITALS: BP 121/76
[2025-03-17 03:28] VITALS: BP 114/75
[2025-03-17 06:00] VITALS: BMI 37.7
[2025-03-17 07:00] VITALS: BP 107/64
[2025-03-17 07:10] LABS: Blood Urea Nitrogen 28 mg/dl (9-20); Calcium 8.2 mg/dl (8.4-10.2); Carbon Dioxide 22 mmol/L (22-30); Chloride 108 mmol/L (98-107); Estimated Creatinine Clearance 49 ml/min; Glucose 125 mg/dl (70-99); Potassium 4.4 mmol/L (3.5-5.1); Sodium 137 mmol/L (135-145); eGFR 46.19
[2025-03-17] MEDS: SODIUM BICARBONATE 650 MG PO (07:59)
[2025-03-17] MEDS: PROTONIX 40 MG PO (07:59)
[2025-03-17] MEDS: ELIQUIS 5 MG PO ×2 (07:59→19:44)
[2025-03-17] MEDS: MUCINEX 600 MG PO ×2 (07:59→19:44)
[2025-03-17] MEDS: LASIX 40 MG IV ×2 (08:00→16:03)
[2025-03-17] MEDS: TOPROL XL PO (08:00)
[2025-03-17] MEDS: FEOSOL 325 MG PO (08:01)
--- NOTE | 2025-03-17 10:34 | CM ---
Received consult for patient to check the orona of Farxiga 10 mg x1 daily and Jardiance 10 mg x1 daily. Placed a call to [facility] and spoke with a earth science laboratory technician named, Rosamaria who stated that: Farxiga is 114.89 Jardiance 120.58. updated in consult.
[2025-03-17 11:00] VITALS: BP 102/66
--- NOTE | 2025-03-17 11:15 | W.PN.CD ---
Today's Communication / Plan
-
Cont IV diuresis
Impression / Plan
-
84-year-old male with history of recently diagnosed A-fib, hypertension, CLL(recently diagnosed), hypertension, chronic metabolic acidosis, peripheral neuropathy GERD/Barahona's esophagus, who presents with Acute Heart failure.
Acute HFpEF:
- EF 55-60%
- Increase lasix to 40mg IV BID
- Continue Metoprolol
- Follow daily weights, strict IandO and BMP. Telemetry while diuresing
- will discuss Farxiga 10 mg to see if affordable ~$115/month
Persistent Afib:
S/p cardioversion x3 with no return to SR at other hospital. Appears that patient has been in afib since prior admission and potentially longer
- No plans for further procedures.
- Discontinue Amioderone
- Rate control with goal HR of 110 or less
- Continue Eliquis and Metoprolol
Essential hypertension:
- continue Metoprolol with holding parameters.
CKD stage 3A:
- At baseline Cr.
Subjective: SOB continues to improve
Echo 03/16:
Normal size and function with no regional wall motion abnormalities.
LVEF is 55-60% by visual estimation. Mild concentric LVH.
Normal right ventricular size and function.
Mild mitral regurgitation.
Insufficient TR for estimation of PASP.
No prior study available for comparison.
Physical Exam
Vital Signs/Labs
Vital Signs
Temp Pulse Resp BP Pulse Ox
97.8 F 84 16 102/66 97
03/17/25 11:00 03/17/25 11:00 03/17/25 11:00 03/17/25 11:00 03/17/25 11:00
03/16/25 03/17/25 03/18/25
06:59 06:59 06:59
Actual Weight 269 lb 4.8 oz 262 lb 8 oz
03/16/25 06:21
03/17/25 06:16
Magnesium 1.7 mg/dl (1.6-2.3) 03/16/25 06:21
Triglycerides 111 mg/dl (10-149) 03/16/25 06:21
LDL Cholesterol, Calc 26 mg/dl 03/16/25 06:21
VLDL Cholesterol, Calc 22 mg/dl (0-30) 03/16/25 06:21
HDL Cholesterol 9 mg/dl 03/16/25 06:21
Free T4 1.19 ng/dl (0.78-2.19) 03/15/25 14:59
03/15/25
14:59
Ruv-I-Ghuxeynzikb Pept 4460
LAB Results
03/15/25
14:59
Troponin I < 0.012
Physical Exam
Constitutional: No acute distress and Comfortable
EENT: Anicteric
Cardiovascular: Rhythm/rate is irregular and Pedal edema present
Respiratory: Respiratory effort normal and Lungs clear to auscul.
GI: Soft
Neuro/Psych: AO x 3
Data Reviewed
-
Date of Service: March 17, 2025
EKG: Tracing Personally Visualized and interpreted (af)
Echo: Tracing Personally Visualized and interpreted
Labs: Labs Reviewed by me
--- NOTE | 2025-03-17 12:16 | W.PN.HOSP.TC ---
Today's Communication/Plan
-
see plan
Assessment / Plan
Assessment / Plan
Gen: NAD, AAOx3.
Eyes: EOMI, PERRLA, no scleral icterus.
Neck: supple.
CV: remains irreg/irreg, +S1/S2, no m/r/g.
Resp: remains CTAB, no rales, wheezes, or rhonchi.
Abd: +BS, soft, NT, ND
Skin: No rashes. remains 1+ B/L LE edema
Neuro: CN 2-12 intact, non-focal.
Psych: Normal mood and affect.
CXR: Small bilateral pleural effusions. Bibasilar opacities favored to represent atelectasis, although mild pneumonia could be considered in the appropriate clinical setting.
Echo: Normal size and function with no regional wall motion abnormalities. LVEF is 55-60% by visual estimation. Mild concentric LVH. Normal right ventricular size and function. Mild mitral regurgitation. Insufficient TR for estimation of PASP. No
prior study available for comparison.
Acute HFpEF:
-cardiology following
-echo above
-cont IV lasix
-daily wts, I/Os
Persistent Atrial Fibrillation:
-cont Eliquis/BB
Normocytic Anemia / Thrombocytopenia
-Per family while [place] there was concern raised about possible CLL
-counts stable, cont outpt w/u
Essential Hypertension:
-cont BB
Other problems:
CKD3a
GERD with h/o Barahona's Esophagus: cont PPI
Obesity due to Excess Calories
Suspected Obstructive Sleep Apnea
Family updated at bedside.
FULL/Eliquis
Anticipated Discharge: Within 24 hours
Subjective/Interval History
-
Date of Service: March 17, 2025
No new complaints.
Objective Data
-
Labs:
Laboratory Results
03/17/25
06:16
Sodium 137
Potassium 4.4
Chloride 108 H
Carbon Dioxide 22
BUN 28 H
Creatinine 1.5 H
Glucose 125 H
Calcium 8.2 L
Vital Signs:
Vital Signs
Temp Pulse Resp BP Pulse Ox
97.8 F 84 16 102/66 97
03/17/25 11:00 03/17/25 11:00 03/17/25 11:00 03/17/25 11:00 03/17/25 11:00
I&O
03/16/25 03/17/25 03/18/25
06:59 06:59 06:59
Intake Total 1560 / 1560
Output Total 1000 / 1000 4575 / 4575
Balance -1000 / -1000 -3015 / -3015
[2025-03-17 15:00] VITALS: BP 118/71
[2025-03-17 19:27] VITALS: BP 103/64
[2025-03-17] MEDS: TOPROL XL 75 MG PO (19:43)
[2025-03-17] MEDS: MELATONIN 5 MG PO (19:44)
[2025-03-17 23:42] VITALS: BP 137/75
[2025-03-18 03:41] VITALS: BP 126/83
[2025-03-18 06:00] VITALS: BMI 37.4
[2025-03-18 07:00] VITALS: BP 102/74
[2025-03-18 07:15] LABS: Blood Urea Nitrogen 29 mg/dl (9-20); Calcium 8.1 mg/dl (8.4-10.2); Carbon Dioxide 23 mmol/L (22-30); Chloride 106 mmol/L (98-107); Estimated Creatinine Clearance 49 ml/min; Glucose 136 mg/dl (70-99); Potassium 3.8 mmol/L (3.5-5.1); Sodium 137 mmol/L (135-145); eGFR 46.19
[2025-03-18] MEDS: TOPROL XL PO (07:54)
[2025-03-18] MEDS: LASIX 40 MG IV (07:54)
[2025-03-18] MEDS: PROTONIX 40 MG PO (07:55)
[2025-03-18] MEDS: ELIQUIS 5 MG PO (07:55)
[2025-03-18] MEDS: FEOSOL 325 MG PO (07:55)
[2025-03-18] MEDS: MUCINEX 600 MG PO (07:55)
[2025-03-18 08:26] VITALS: BP 102/74
--- NOTE | 2025-03-18 08:26 | W.PN.CD ---
Today's Communication / Plan
-
- Lasix 40 mg daily; stop iv diuresis
- farxiga 10 mg
- Increase Metoprolol to 100mg bid
We will sign off please call with questions.
Impression / Plan
-
84-year-old male with history of recently diagnosed A-fib, hypertension, CLL(recently diagnosed), hypertension, chronic metabolic acidosis, peripheral neuropathy GERD/Barahona's esophagus, who presents with Acute Heart failure.
Acute HFpEF:
- EF 55-60%
- Lasix 40 mg daily; stop iv diuresis
- farxiga 10 mg
- Increase Metoprolol to 100mg bid
- Follow daily weights, strict IandO and BMP. Telemetry while diuresing
Persistent Afib:
S/p cardioversion x3 with no return to SR at other hospital. Appears that patient has been in afib since prior admission and potentially longer
- No plans for further procedures.
- Discontinue Amioderone
- Rate control with goal HR of 110 or less
- Continue Eliquis and Metoprolol
Essential hypertension:
- continue Metoprolol with holding parameters.
CKD stage 3A:
- At baseline Cr.
Subjective: Feels good wants to go
Echo 03/16:
Normal size and function with no regional wall motion abnormalities.
LVEF is 55-60% by visual estimation. Mild concentric LVH.
Normal right ventricular size and function.
Mild mitral regurgitation.
Insufficient TR for estimation of PASP.
No prior study available for comparison.
Physical Exam
Vital Signs/Labs
Vital Signs
Temp Pulse Resp BP Pulse Ox
98.7 F 105 18 102/74 94
03/18/25 03:41 03/18/25 07:54 03/18/25 03:41 03/18/25 07:54 03/18/25 03:41
03/17/25 03/18/25 03/19/25
06:59 06:59 06:59
Actual Weight 262 lb 8 oz 260 lb 8 oz
03/16/25 06:21
03/18/25 06:23
Magnesium 1.7 mg/dl (1.6-2.3) 03/16/25 06:21
Triglycerides 111 mg/dl (10-149) 03/16/25 06:21
LDL Cholesterol, Calc 26 mg/dl 03/16/25 06:21
VLDL Cholesterol, Calc 22 mg/dl (0-30) 03/16/25 06:21
HDL Cholesterol 9 mg/dl 03/16/25 06:21
Free T4 1.19 ng/dl (0.78-2.19) 03/15/25 14:59
03/15/25
14:59
Nqi-F-Utftjxkrcbu Pept 4460
LAB Results
03/15/25
14:59
Troponin I < 0.012
Physical Exam
Constitutional: No acute distress and Comfortable
EENT: Anicteric
Cardiovascular: Rhythm/rate is irregular and Pedal edema present (trace b/l )
Respiratory: Respiratory effort normal and Lungs clear to auscul.
GI: Soft
Neuro/Psych: AO x 3
Data Reviewed
-
Date of Service: March 18, 2025
Medical Decision Making: Reviewed Test Results
EKG: Tracing Personally Visualized and interpreted (af)
Echo: Tracing Personally Visualized and interpreted
Labs: Labs Reviewed by me
--- NOTE | 2025-03-18 08:39 | W.PN.ONC2 ---
Today's Communication / Plan
-
.
Impression
Impression
anemia, thrombocytopenia, monocytosis
CHF exacerbation
afib
Plan
Plan
Bone marrow biopsy results have been requested from [facility] -awaiting records
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
Would transfuse as clinically indicated
Mgmt of cardiac issues per primary team/cardiology
Anticipate outpatient heme/oncology f/u to consider treatment versus observation pending BM bx results and clinical status
Subjective/Objective
Subjective
no new complaints
Vital Signs:
Vital Signs
Temp Pulse Resp BP Pulse Ox
98.4 F 105 16 102/74 93
03/18/25 07:00 03/18/25 07:54 03/18/25 07:00 03/18/25 07:54 03/18/25 07:00
Lab Results:
Laboratory Data
WBC 7.0 10^3/uL (4.8-10.8) 03/16/25 06:21
Hgb 8.4 g/dL (13.0-18.0) L 03/16/25 06:21
Plt Count 80 10^3/uL (130-400) L 03/16/25 06:21
eGFR 46.19 03/18/25 06:23
Physical Exam
General: Well Developed, Well Nourished, No Apparent Distress and Comfortable
HEENT: Moist Mucous Membranes
Cardiology: Normal Sinus Rhythm
Neurology: Non Focal, No Lateralizing Symptoms and No Word Finding Difficulty
Skin: Warm and Dry
Psych: Calm and Intact Judgement/Insight
[2025-03-18] MEDS: FARXIGA 10 MG PO (09:04)
--- NOTE | 2025-03-18 09:50 | W.PN.HOSP.TC ---
Today's Communication/Plan
-
d/c
Assessment / Plan
Assessment / Plan
Gen: NAD, AAOx3.
Eyes: EOMI, PERRLA, no scleral icterus.
Neck: supple.
CV: Continues to remain irreg/irreg, +S1/S2, no m/r/g.
Resp: CTAB, no rales, wheezes, or rhonchi.
Abd: +BS, soft, NT, ND
Skin: No rashes. Trace-+ B/L LE edema
Neuro: CN 2-12 intact, non-focal.
Psych: Normal mood and affect.
CXR: Small bilateral pleural effusions. Bibasilar opacities favored to represent atelectasis, although mild pneumonia could be considered in the appropriate clinical setting.
Echo: Normal size and function with no regional wall motion abnormalities. LVEF is 55-60% by visual estimation. Mild concentric LVH. Normal right ventricular size and function. Mild mitral regurgitation. Insufficient TR for estimation of PASP. No
prior study available for comparison.
Acute HFpEF:
-cardiology following, discussed with Dr. Conley
-echo above
-s/p IV lasix, transition to PO lasix on d/c
-start Farxiga, increase BB
-daily wts, I/Os
Persistent Atrial Fibrillation:
-cont Eliquis/BB
Normocytic Anemia / Thrombocytopenia
-Per family while in [place] there was concern raised about possible CLL
-counts stable, cont outpt w/u
Essential Hypertension:
-cont BB
Other problems:
CKD3a
GERD with h/o Barahona's Esophagus: cont PPI
Obesity due to Excess Calories
Suspected Obstructive Sleep Apnea
FULL/Eliquis
Medically cleared for d/c.
Total time spent on d/c = 31 min. This included today's physical exam, progress note, review of laboratory and diagnostic data, preparation of discharge documents and prescriptions, and discussions about the pt's hospital course and discharge plan
with the patient and other emergency medical service coordinator involved in the patient's care.
Anticipated Discharge: Today
Subjective/Interval History
-
Date of Service: March 18, 2025
No new complaints.
Objective Data
-
Labs:
Laboratory Results
03/18/25
06:23
Sodium 137
Potassium 3.8
Chloride 106
Carbon Dioxide 23
BUN 29 H
Creatinine 1.5 H
Glucose 136 H
Calcium 8.1 L
Vital Signs:
Vital Signs
Temp Pulse Resp BP Pulse Ox
98.4 F 105 16 102/74 93
03/18/25 07:00 03/18/25 07:54 03/18/25 07:00 03/18/25 07:54 03/18/25 09:17
I&O
03/17/25 03/18/25 03/19/25
06:59 06:59 06:59
Intake Total 1560 / 1560 1080 / 1080
Output Total 4575 / 4575 2650 / 2650
Balance -3015 / -3015 -1570 / -1570
[2025-03-18 11:00] VITALS: BP 99/64
--- NOTE | 2025-03-18 11:39 | PTCARENOTE ---
Patient and daughter educated on discharge packet. IV and telemetry removed. Answered all questions. Daughter to transport home with no needs.
--- NOTE | 2025-03-18 13:00 | W.DCSUMMARY ---
Discharge Summary
Discharge Data
Date of Admission: 03/15/25
Date of Discharge: 03/18/25
-
Pending Results: No
Hospital Course
Primary diagnoses:
Acute heart failure with preserved ejection fraction
Secondary diagnoses:
Persistent atrial fibrillation
Normocytic anemia
Thrombocytopenia
Essential hypertension
Chronic kidney disease stage IIIa
Gastroesophageal reflux disease with h/o Barahona's Esophagus: cont PPI
Obesity due to Excess Calories
Suspected Obstructive Sleep Apnea
Consultants:
Cardiology
Hematology
Imaging:
CXR: Small bilateral pleural effusions. Bibasilar opacities favored to represent atelectasis, although mild pneumonia could be considered in the appropriate clinical setting.
Echo: Normal size and function with no regional wall motion abnormalities. LVEF is 55-60% by visual estimation. Mild concentric LVH. Normal right ventricular size and function. Mild mitral regurgitation. Insufficient TR for estimation of PASP. No
prior study available for comparison.
Hospital course: 84-year-old male presented with a chief complaint of dyspnea on exertion as outlined in the H&P done on admission. Chest x-ray above. proBNP was 4460. The patient was diuresed with IV Lasix and his symptoms improved.
Echocardiogram above. Patient was started on Farxiga. His beta-isidro was increased. He was transitioned to oral Lasix and was discharged in medically stable condition.
Discharge Plan
-
Patient Disposition: Home (Routine Discharge)
Discharge Diagnosis/Procedures: Acute heart failure with preserved ejection fraction
Condition: Good
Diet: Low Cholesterol and 2 Gram Sodium
Additional Diets: Fluid restrict to 1200 cc/day
Activity: As tolerated
Driving Restrictions: As prior to admission
Blood Work: BMP in 1 week, prescription from PCP
Specialty Instructions: Weigh Daily- Call MD for wt gain/loss 3 lbs overnight/5 lbs in 1 week
Referrals:
Gualberto Felix MD [Family Provider] - in less than 1 week
Prescriptions:
New
metoprolol succinate 100 mg Tablet Extended Release 24 Hr
100 mg PO BID Qty: 60 0RF
dapagliflozin propanediol 10 mg Tablet
10 mg PO DAILY Qty: 30 0RF
furosemide [Lasix] 40 mg tablet
40 mg PO DAILY Qty: 30 0RF
Continued
timolol 0.5 % Drops
1 drp LEFT EYE BID
ferrous sulfate 325 mg (65 mg iron) Tablet
325 mg PO DAILY
albuterol sulfate 90 mcg/actuation Hfa Aerosol Inhaler
2 puff INHALATION R Q6HPRN PRN (Reason: sob)
omeprazole 20 mg Tablet,Delayed Release (Dr/Ec)
20 mg PO DAILY
melatonin 5 mg Tablet
5 mg PO HSPRN PRN (Reason: sleep)
Eliquis 5 mg Tablet
5 mg PO BID
guaifenesin [Mucinex] 600 mg Tablet Extended Release 12hr
600 mg PO BIDPRN PRN (Reason: cough)
Glucosamine Chondroitin 550-30-1 mg Capsule
1 cap PO DAILY
Discontinued
amiodarone 200 mg Tablet
200 mg PO DAILY
sodium bicarbonate 650 mg Tablet
650 mg PO TID
metoprolol succinate [Toprol XL] 25 mg Tablet Extended Release 24 Hr
75 mg PO BID
Discharge Orders:
Discharge Patient (As Directed); Ordered 03/18/25
Ordered By: Chance Green
Discharge Date and Time
Discharge Date/Time: 03/18/25 12:29
Print Language: JAPANESE
--- NOTE | 2025-03-19 11:13 | W.HF.CON ---
Heart Failure
- LV Function
Left ventricular function study result: LV Ejection fraction >/= 50%
Ejection Fraction Percentage: 55-60
- ARNI
Patient already on ARNI: No
Heart Failure ARNI Not Indicated: LV Ejection Fraction >/= 40%
- ACEI/ARB
Patient already on ACEI/ARB: No
Heart Failure ACEI/ARB Not Indicated: LV Ejection Fraction > 40%
- Beta Anne
Patient already on Evidence Based Beta Anne: Yes
- Mineralocorticord Receptor Antagonist
Patient already on MRA: No
Heart Failure MRA Not Indicated: LV Ejection Fraction > 40%
- SGLT-2 Inhibitor
Patient already on SGLT-2 Inhibitor: Yes
- Afib Anticoagulation
Patient already on Anticoagulation for Afib: Yes
- NYHA CHF Classification
NYHA CHF Classification Level: Class III - Symptoms w/ min exertion, interferes w/ nml daily activity
- ACC/AHA Stage
ACC/AHA Stage: Stage C: Symptomatic Heart Failure
== END 2025-03-18 12:29 | disposition home or self-care (01) | DRG 291 ==
LOC: 4 EAST ACU 19:17
PROVIDERS: Physician Assistant; Physician Assistant Medical; ADMITTING PHYSICIAN Internal Medicine; ATTENDING PHYSICIAN Internal Medicine; EMERGENCY PHYSICIAN Emergency Medicine; FAMILY PHYSICIAN Internal Medicine Geriatric Medicine; OTHER PHYSICIAN Internal Medicine Cardiovascular Disease; OTHER PHYSICIAN Internal Medicine Hematology & Oncology
DX: I13.0 Hypertensive heart and chronic kidney disease with heart failure and stage 1 through stage 4 chronic kidney disease, or unspecified chronic kidney disease (principal); I50.31 Acute diastolic (congestive) heart failure; I48.19 Other persistent atrial fibrillation; E87.22 Chronic metabolic acidosis; C93.10 Chronic myelomonocytic leukemia not having achieved remission; N18.31 Chronic kidney disease, stage 3a; D64.9 Anemia, unspecified; D69.6 Thrombocytopenia, unspecified; K21.9 Gastro-esophageal reflux disease without esophagitis; K22.70 Barrett's esophagus without dysplasia; E66.09 Other obesity due to excess calories; Z68.37 Body mass index [BMI] 37.0-37.9, adult; G62.9 Polyneuropathy, unspecified; Z87.891 Personal history of nicotine dependence; Z79.01 Long term (current) use of anticoagulants; D72.821 Monocytosis (symptomatic); Z79.899 Other long term (current) drug therapy
CPT/HCPCS: 71046; 80048; 80053; 80061; 82607; 82728; 82746; 83540; 83550; 83735; 83880; 84439; 84443; 84484; 85025; 85027; 93005; 93306; 96374; 96376; 99285

== ENCOUNTER → 2025-04-26 08:14 | Outpatient (REF) | payer MEDICARE, OTHER, SELFPAY | LOC: RAD 08:14 | PROVIDERS: ATTENDING PHYSICIAN Internal Medicine Hematology & Oncology; FAMILY PHYSICIAN Internal Medicine Geriatric Medicine | DX: C96.0 Multifocal and multisystemic (disseminated) Langerhans-cell histiocytosis (principal) | CPT/HCPCS: 71250; 74176; 78306; A9503 ==

== ENCOUNTER → 2025-04-27 08:43 | Outpatient (REF) | payer MEDICARE, OTHER, SELFPAY | LOC: MRI 08:43 | PROVIDERS: ATTENDING PHYSICIAN Internal Medicine Hematology & Oncology; FAMILY PHYSICIAN Internal Medicine Geriatric Medicine | DX: C96.0 Multifocal and multisystemic (disseminated) Langerhans-cell histiocytosis (principal) | CPT/HCPCS: 75561; A9585 ==

== ENCOUNTER 2025-04-29 13:11 | Inpatient (IN) | payer MEDICARE, OTHER, SELFPAY ==
[2025-04-29] VITALS (23 sets, daily range): BP systolic 84–111; BP diastolic 39–80; BMI 37.9; BMI 36.7
--- NOTE | 2025-04-29 09:26 | ED.GENMED ---
History of Present Illness
General
Chief Complaint: Breathing Problem
Source: patient, records and family
Time Seen by Provider: 04/29/25 08:43
History of Present Illness
History of Present Illness:
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
[facility] for further work presenting to the ER for evaluation at the request of primary care provider for worsening shortness of breath, edema, exertional dyspnea and an approximate 12 pound weight gain in 1 week. Daughter who is
currently here with the patient states that due to blood pressure issues and conflicting information from cardiology and nephrology they are unsure as to if the patient should be taking Lasix or not, this was reportedly stopped about a week and a
half ago but due to the weight gain was told that he should probably still be on the Lasix and closely monitored but daughter states that she is overall confused as to what dose frequently she should be giving this medication. Patient has also been
dealing with this chronic anemia and hyponatremia for which she is on a fluid restriction and iron supplementation which patient reports good compliance with. He does report his stool is darker however notes that this is usual for him because of
the iron supplement. Patient is otherwise denying any fevers, chills, rigors, cough, pleurisy, hemoptysis or any other concerns.
Past History
Past History
ED Past Medical History: Arrthythmia (Atrial fibrillation), Cancer, GERD, HTN and Other (Suspected CLL, bladder stones)
ED Past Surgical History: Bowel resection and Urological
Social History
Tobacco: Non-smoker
Alcohol: None
Drug: None
Personal:
Living: with family
Review of Systems
Review of Systems
All Other Systems: ROS reviewed and negative except as documented in HPI and ROS
Phy Exam
Physical Exam
Physical Exam:
GENERAL: Alert , pursed lip breathing but speaking full sentences
HEAD: NCAT
EYE: clear conjunctiva
NECK: Supple
ENT: o/p clr, mmm.
CARDIAC: Irregularly irregular rate and rhythm with rates between 100-112 bpm
LUNGS: Somewhat diminished at the right base, no wheezing or rhonchi, patient is mildly tachypneic
ABDOMEN: Firm and somewhat distended but nontender, no r/g, no cvat
NEUROLOGICAL: Alert and oriented, no focal neuro deficits
SKIN: Warm and dry, pale in appearance, skin intact.
MUSCULOSKELETAL: 2+ pitting edema to the knees, 1+ pitting to the mid thighs, well perfused.
PSYCH: Normal and appropriate interaction.
Scores
Heart Failure Risk
Heart Failure Risk Score: Not Applicable
Heart Score for Chest Pain Patients
STEMI patient?: Not applicable
Withdrawal Assessment of Alcohol
Withdrawal Assessment Completed?: Not applicable
Course
Orders/Labs/Results
Orders:
Orders
04/29/25 08:19
EKG [Electrocardiogram (*1)] Urgent
Reason for Study: Shortness of Breath
EKG- Treatment ONCE
04/29/25 09:02
CR Chest Portable - 1 View Urgent
Comment:
Reason For Exam: SOB
Reason Study Needs to be Portable: Unable to Transport
04/29/25 09:14
Type+Screen Urgent
Complete Blood Count/With Diff Urgent
Comprehensive Metabolic Panel Urgent
Magnesium Urgent
NT-proBNP Urgent
PTT Urgent
Prothrombin Time Urgent
Troponin I Urgent
04/29/25 10:16
ABO2 Urgent
BBK Wristband Number:
Associate notified that ABO2 has been ordered: [id number]
Date: 04/29/25
Time: 09:40
Assistant News Director ID: [id number]
04/29/25 10:19
* Blood Bank Products Urgent
Blood Bank Products: *Packed RBC Leuko(PRBC's)
Quantity: 1
Transfuse Today: Yes
Reason: Anemia
04/29/25 10:36
Furosemide [Lasix] 40 mg IV NOW STA
Abnormal Lab Results
04/29/25
09:14
RBC 2.48 L 10^6/uL
(4.70-6.10)
Hgb 7.2 L g/dL
(13.0-18.0)
Hct 23.6 L %
(39.0-52.0)
MCV 95.2 H fL
(80.0-94.0)
MCHC 30.5 L g/dL
(33.0-37.0)
RDW 21.0 H %
(11.5-14.5)
Plt Count 51 L 10^3/uL
(130-400)
Abs Immat Gran (auto) 0.3 H 10^3/uL
(0-0.05)
Absolute Lymphs (auto) 4.8 H 10^3/uL
(1.2-3.4)
Absolute Monos (auto) 1.4 H 10^3/uL
(0.1-0.6)
Immature Gran % 2.9 H %
(0-0.5)
Neutrophils % 27.8 L %
(42.2-75.2)
Lymphocytes % 53.5 H %
(20.5-51.1)
Monocytes % 15.6 H %
(1.7-9.3)
PT 26.5 H Sec
(11.4-14.6)
APTT 37.0 H Sec
(23.4-35.0)
Sodium 130 L mmol/L
(135-145)
Carbon Dioxide 20 L mmol/L
(22-30)
BUN 38 H mg/dl
(9-20)
Creatinine 2.0 H mg/dL
(0.7-1.3)
Glucose 176 H mg/dl
(70-99)
Calcium 7.9 L mg/dl
(8.4-10.2)
Total Bilirubin 1.7 H mg/dl
(0.2-1.3)
AST 9 L U/L
(17-59)
Total Protein 4.6 L g/dl
(6.3-8.2)
Albumin 2.5 L g/dl
(3.5-5.0)
Crossmatch IS Only See Detail
04/29/25 09:14
04/29/25 09:14
Vital Signs
Initial and Last Documented VS:
Initial Vital Signs
Temp Resp
97.4 F 20
04/29/25 08:18 04/29/25 08:18
Last Documented Vital Signs
Temp Pulse Resp BP Pulse Ox
97.4 F 92 22 97/63 95
04/29/25 08:18 04/29/25 10:50 04/29/25 10:00 04/29/25 10:50 04/29/25 09:28
MDM/Problems Addressed
Differential Diagnosis Includes:
- Congestive heart failure
- Cardiomyopathy
- Valvular dysfunction
- Volume overload
- Electrolyte imbalance
- Anemia
- Cardiac arrhythmia
- Pulmonary embolism considered however thought to be less likely given patient is properly anticoagulated
- Less concern for infectious etiology
MDM/Problems Addressed:
84-year-old male presenting to the ER for evaluation of gradually worsening shortness of breath over the last few months, has recently been treated for CHF exacerbation, hyponatremia and anemia. 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
Erdheim-Osiel disease and will be seeing physicians at the [facility] for this, unclear as to if this chronic condition is related to current symptoms. Patient currently in A-fib with rates between 100-112 bpm. Will check labs,
chest x-ray. Given presenting symptoms and chronic medical condition anticipate admission
Chronic conditions affecting care: Arrhythmia
Acute Exacerbation and/or Progression of Chronic Illness: Arrhythmia
*Radiology
Radiology exam reviewed: preliminary read by ED provider (Suspected small pleural effusions)
*Pulse Oximetry
SaO2: 95
Oxygen Mode of Delivery: Room air
Patient hypoxic: no
*EKG
Heart Rate: 103
Rate: tachycardiac
Rhythm: a-fib
[place]: normal axis
Ischemia: no ischemia
*Greenskeeper Laborer Interpretation
Rate: tachycardiac
Rhythm: a-fib
*Critical Care Note
Total Time (30-74mins, 75-104mins- exclusive of procedures): 30
comment:
Critical care statement: A total of 30 minutes of critical care time was provided for this patient. This includes management of unstable vital signs, evaluation of the patient at bedside, reviewing the patient's pertinent medical records, discussion
with consultants, review of old EKGs and review of pertinent medical records. This time with separate from time utilized to perform the aforementioned documented procedures
Data Reviewed
Review of Other/Old Records Reveals: Labs, Records and Radiology Studies
Patient Management
Discussion with other providers: Hospitalist
Escalation/DeEscalation of care consider admission/obs:
Patient's labs returned showing a hemoglobin of 7.2 which appears to be down from his baseline of around 8-1/2. Patient he has slightly worse patient chronic kidney disease and an elevated BNP. Treating with 40 mg Lasix IV. Patient was consented
for 1 unit packed red blood cells. Digital rectal exam was performed which showed light poon stool that was heme-negative. I notified hospitalist team who accepts for continued evaluation and treatment. Patient will likely need consult with
nephrology and cardiology.
ED Attending Note
-
Portions of this chart may have been created with voice recognition software.� Occasional wrong word or��sound alike� substitutions may have occurred due to the inherent limitations of voice recognition software.
Discharge Plan
Departure
Patient Disposition: Admit
Date of Disposition: 04/29/25
Time of Disposition: 10:38
Presentation/result/management discussed w/ accepting MD/DO: Hospitalist
Discharge Problem:
CHF (congestive heart failure), Anemia, CKD (chronic kidney disease)
Prescriptions:
No Action
timolol 0.5 % Drops
1 drp LEFT EYE BID
ferrous sulfate 325 mg (65 mg iron) Tablet
325 mg PO DAILY
omeprazole 20 mg Tablet,Delayed Release (Dr/Ec)
20 mg PO DAILY
sodium bicarbonate 650 mg Tablet
650 mg PO DAILY
docusate sodium [Colace] 100 mg Capsule
100 mg PO BID
ipratropium bromide 42 mcg (0.06 %) spray,non-aerosol
2 spray INTRANASAL QID
fluticasone propionate [Flonase] 50 mcg/actuation [place],Suspension
1 spray INTRANASAL DAILY
metoprolol succinate 100 mg tablet extended release 24 hr
50 mg PO BID
Eliquis 2.5 mg Tablet
2.5 mg PO BID
Referrals:
Gualberto Felix MD [Family Provider, Internal Medicine]
Interventions
Interventions:
*Risk Screen - Suicide Last Done: 04/29/25 08:18
*General Assessment Last Done: 04/29/25 08:53
*Neglect/Abuse Screening Last Done: 04/29/25 08:53
*ED- Fall Risk Assessment Last Done: 04/29/25 08:53
*ED COVID-19 Vaccine History Last Done: 04/29/25 08:53
ED- Cardiac Assessment Last Done: 04/29/25 08:53
ED- Pulmonary Assessment Last Done: 04/29/25 08:53
Discharge Date and Time
Print Language: DJIBOUTIAN
[2025-04-29 09:50] LABS: Hematocrit 23.6 % (39.0-52.0); Hemoglobin 7.2 g/dL (13.0-18.0); Mean Corp Hgb Conc. 30.5 g/dL (33.0-37.0); Mean Corpuscular Volume 95.2 fL (80.0-94.0); Nucleated Red Blood Cells % 0.3 % (-); Platelet Count 51 10^3/uL (130-400); Red Cell Dist. Width 21.0 % (11.5-14.5)
[2025-04-29 09:56] LABS: INR 2.43; PT 26.5 Sec (11.4-14.6)
[2025-04-29 09:57] LABS: APTT 37.0 Sec (23.4-35.0)
[2025-04-29 10:07] LABS: Troponin I < 0.012 ng/ml
[2025-04-29 10:10] LABS: ALT (SGPT) < 10 U/L (0-50); Alkaline Phosphatase 56 U/L (38-126); Blood Urea Nitrogen 38 mg/dl (9-20); Calcium 7.9 mg/dl (8.4-10.2); Carbon Dioxide 20 mmol/L (22-30); Chloride 102 mmol/L (98-107); Estimated Creatinine Clearance 37 ml/min; Glucose 176 mg/dl (70-99); Magnesium 2.0 mg/dl (1.6-2.3); Potassium 4.9 mmol/L (3.5-5.1); Sodium 130 mmol/L (135-145); Total Protein 4.6 g/dl (6.3-8.2); eGFR 32.71
[2025-04-29 10:11] LABS: AST (SGOT) 9 U/L (17-59); Albumin 2.5 g/dl (3.5-5.0)
[2025-04-29] MEDS: LASIX 40 MG IV ×2 (10:50→16:37)
--- NOTE | 2025-04-29 13:04 | CON.CAR ---
Addendum entered and electronically signed by Amado Barger MD 04/29/25 15:57:
84 yo male with PMH of chronic HFPEF, CKD3a, persistent A fib on eliquis, recent dx Erdheim-Pawnee disease with anemia, thrombocytopenia is admitted with progressive SOB, edema, weight gain. He developed SAMEERA as outpatient, and lasix (40mg daily)
and SGLT2i were stopped. He then gained 5lbs. Exam with irregular rhythm, no murmurs, 2+ LE edema. Cr 2.0. Tele: A fib 90s.
Chronic HFPEF. Severe. Suspect cardiorenal syndrome. Also getting pRBC for anemia. Start with lasix 40mg IV bid, with close monitoring of labs/tele. On d/, suspect lasix will be 40mg M//.
Persistent A fib. Rate controlled. Continue Toprol XL 50mg bid. If plts consistently below 50, will need to hold eliquis.
Original Note:
Consultation
Consultation Request
Date/Time Consultation Requested: 04/29/25 1300
Date/Time Consultation Performed: 04/29/25 1305
Requesting Provider: Dr. Huntley
Performing Provider: Sylvia BELTRAN for Dr. Barger
Reason for Consultation: CHF
Medical History
-
Chief Complaint: SOB
History of Present Illness:
84-year-old male (Dr. Conley patient) with AFIB on Eliquis, hypertension, GERD/Barahona's esophagus, recent dx Erdheim-Pawnee disease, HFpEF who is here as he was sent by his PCP for management of heart failure in setting of kidney disease. He
does report he has been off his lasix for about 1.5 weeks due to renal issues. He has gained about 5 lbs and had increased LE edema and abdominal bloating. His BP is on low end, but he denies any dizziness. CT imaging recently reported small to mod
pericardial effusion and MRI small pericardial effusion. He is in no distress at the time of my assessment.
Past Medical History
Past Medical History: Arrhythmias (Afib), CHF, GERD, HTN and Other (as above)
Past Surgical History: Bowel Resection (colon) and Urological (TURP, bladder stone)
Social History
Tobacco: Former Smoker
Alcohol: Other (rare)
Family History
Family History: Reviewed & Not Pertinent
Allergies / Home Medications
Allergy/AdvReac Type Severity Reaction Status Date / Time
No Known Allergies Allergy Unverified 03/15/25 11:38
�Medication �Instructions �Recorded �Confirmed �Type
ferrous sulfate 325 mg (65 mg 325 mg PO DAILY Supplement 03/15/25 04/29/25 History
iron) tablet
omeprazole 20 mg tablet,delayed 20 mg PO DAILY Gastrointestinal 03/15/25 04/29/25 History
release Issue
timolol 0.5 % eye drops 1 drp LEFT EYE BID Eye Condition 03/15/25 04/29/25 History
apixaban 2.5 mg tablet (Eliquis) 2.5 mg PO BID Blood Clot 04/29/25 04/29/25 History
Prevention/Tx
docusate sodium 100 mg capsule 100 mg PO BID Constipation 04/29/25 04/29/25 History
(Colace)
fluticasone propionate 50 1 spray intranasal DAILY Allergies 04/29/25 04/29/25 History
mcg/actuation nasal
spray,suspension
ipratropium bromide 42 mcg (0.06 2 spray intranasal QID 04/29/25 04/29/25 History
%) nasal spray Lung/Breathing Issues
metoprolol succinate 100 mg 50 mg PO BID Blood Pressure 04/29/25 04/29/25 History
tablet,extended release 24 hr
sodium bicarbonate 650 mg tablet 650 mg PO DAILY CKD 04/29/25 04/29/25 History
Review of Systems
-
History Source: Patient
All other systems: Negative unless noted
Constitutional: Weight Gain
Respiratory: Trouble Breathing
Musculoskeletal: Edema
Physical Exam
Vital Signs
Temp Pulse Resp BP Pulse Ox
97.7 F 104 17 101/63 95
04/29/25 12:58 04/29/25 12:45 04/29/25 12:45 04/29/25 12:45 04/29/25 12:45
Lab Results
04/29/25 09:14
04/29/25 09:14
Troponin I < 0.012 ng/ml 04/29/25 09:14
Jim-O-Erbgxkcppfw Pept 5590 pg/ml 04/29/25 09:14
Physical Exam
General: Well Developed, Well Nourished and No Apparent Distress
HEENT: Normocephalic and Anicteric
Respiratory: Clear and Non Labored Respirations
Cardiac: Irregular Rhythm
Musculoskeletal: Edema (+1-2 BLE edema)
Skin: Warm and Dry
Neuro: AO x 3
Psych: Calm
Impression / Plan
-
Psbbv-zh-lobngka HFpEF:
-weight up, LE edema noted. This is related to being off Lasix for renal dysfunction.
-agree with IV Lasix, which requires intensive monitoring. Follow BP's, which are on low end. He is not symptomatic.
-CHF education
SAMEERA on CKD:
-nephrology is consulted
-monitor with diuresis
AFIB, at least persistent:
-continue metoprolol and follow telemetry. Follow BP's, which are on low end. He is not symptomatic.
-on Eliquis for OAC- platelets are 51, so need to monitor this closely
Anemia:
-getting a unit of PRBC's, monitor response
-heme/onc consulted. He is seeing a specialist soon for Erdheim-Pawnee disease down at [place].
Pericardial effusion:
-small on MRI, small to moderate on CT. Not noted on recent echo. Will order echo follow-up study to assess.
Data:
Cardiac MRI 04/26/25: No MRI evidence for diffuse infiltrative myocardial disease. Global systolic LV function: Normal. Global systolic RV function: Normal. LV viability: Normal. Valvular disease: (1) Mild to moderate tricuspid regurgitation. (2)
Mild mitral regurgitation. Small pericardial effusion. Small bilateral pleural effusions. Small volume of upper abdominal ascites. Diffuse histiocytosis soft tissue infiltration of the kidneys. Mild hepatomegaly. Moderate splenomegaly.
Echo 03/16/25: Normal size and function with no regional wall motion abnormalities. LVEF is 55-60% by visual estimation. Mild concentric LVH. Normal right ventricular size and function. Mild mitral regurgitation. Insufficient TR for estimation of
PASP.
Data Reviewed
-
EKG: Tracing Personally Visualized and interpreted (AFIB 103 BPM)
Radiology: Report Reviewed by me (CXR: Patchy parenchymal opacity within both lower lungs, with main differential considerations of pneumonia, and/or atelectasis, and/or edema.)
Medical Tests (Nuc Med, Echo etc): Other (follow-up study ordered)
Labs: Labs Reviewed by me
--- NOTE | 2025-04-29 13:07 | HPS.HSE ---
Family Physician
-
Family Physician: Gualberto Felix
Chief Complaint
-
Shortness of breath and progressive lower extremity edema
History of Present Illness
84-year-old gentleman was here in March for shortness of breath, lower extremity edema suspected secondary to heart failure was discharged home and now coming back with shortness of breath and progressive lower extremity edema and weight gain.
There is some confusion about the Lasix treatments whether to take it or not and has not been on any Lasix for 1 and a week.
He started develop progressive shortness of breath worse with exertion. Denies any orthopnea. He has increased lower extremity edema and also feels his belly is distended. No chest pain or shortness of breath no cough. No nausea or vomiting.
He has rare form of histiocytosis and waiting for appointment at [facility]. He had an MRI of the heart and CT of the chest abdomen pelvis this week for his oncologist Dr. Jorgensen
Denies any fevers denies chills in the night.
No joint pain or swelling.
No nausea vomiting. Tolerating diet. Denies any diarrhea.
With all the weight gain in the legs and swelling he is also feeling very weak and tired on his legs. Is not able to do much at home. He has got chronic neuropathy which has not changed in character.
Medical History
Past Medical History
Past Medical History: Reports Other
Additional Past Medical History:
Atrial Fibrillation
Essential Hypertension
Peripheral Neuropathy
CKD Stage IIIA
Chronic Metabolic Acidosis
GERD / Barahona's Esophagus
Past Surgical History: Reports Other
Additional Past Surgical History:
Bladder Stone
TURP
Colon Resection
Social History
Tobacco: Former Smoker (Quit cigarettes about 30 years. Quit cigars about 15 years ago)
Alcohol: Other (Rare alcohol use, less than once per month)
Family History
Family History: Not pertinent
Allergies / Home Medications
Allergies reflects when Allergies were last updated in [employer].
Home Medications with original date entered in [employer]
Allergy/Medication List:
Allergies
Allergy/AdvReac Type Severity Reaction Status Date / Time
No Known Allergies Allergy Unverified 03/15/25 11:38
Home Medications
albuterol sulfate 90 mcg/actuation aerosol inhaler 2 puff inhalation R Q6HPRN PRN sob 03/15/25
amiodarone 200 mg tablet 200 mg PO DAILY 03/15/25
apixaban 5 mg tablet (Eliquis) 5 mg PO BID 03/15/25
ferrous sulfate 325 mg (65 mg iron) tablet 325 mg PO DAILY 03/15/25
glucosamine sulf dipot chlr,msm,chond 550 mg-C 30 mg-kvng 1 mg capsule (Glucosamine Chondroitin) 1 cap PO DAILY 03/15/25
guaifenesin 600 mg tablet, extended release 12 hr (Mucinex) 600 mg PO BIDPRN PRN cough 03/15/25
melatonin 5 mg tablet 5 mg PO HSPRN PRN sleep 03/15/25
metoprolol succinate 25 mg tablet,extended release 24 hr (Toprol XL) 75 mg PO BID 03/15/25
omeprazole 20 mg tablet,delayed release 20 mg PO DAILY 03/15/25
sodium bicarbonate 650 mg tablet 650 mg PO TID 03/15/25
timolol 0.5 % eye drops 1 drp LEFT EYE BID 03/15/25
Review of Systems
-
A 12 point ROS was completed and negative except as noted: Yes
Physical Exam
Vital Signs
Vital Signs
Temp Pulse Resp BP Pulse Ox
97.7 F 104 17 101/63 95
04/29/25 12:58 04/29/25 12:45 04/29/25 12:45 04/29/25 12:45 04/29/25 12:45
Physical Exam
General: Comfortable
Respiratory: Clear and Non Labored Respirations; No Accessory Resp Muscle Use
Cardiac: Regular Rhythm and Irregular Rhythm; No Tachycardia
GI: Soft, Non Tender, Normal Bowel Sounds and Distended (Mild distention noted)
Musculoskeletal: Edema, Left Lower Extremity and Edema, Right Lower Extremity (2+ bilaterally)
Neuro: AO x 3
Psych: Calm; No Confused
Laboratory Results
-
04/29/25 09:14
04/29/25 09:14
Laboratory Results
PT 26.5 Sec (11.4-14.6) H 04/29/25 09:14
INR 2.43 04/29/25 09:14
APTT 37.0 Sec (23.4-35.0) H 04/29/25 09:14
Total Bilirubin 1.7 mg/dl (0.2-1.3) H 04/29/25 09:14
AST 9 U/L (17-59) L 04/29/25 09:14
ALT < 10 U/L (0-50) 04/29/25 09:14
Alkaline Phosphatase 56 U/L (38-126) 04/29/25 09:14
Troponin I < 0.012 ng/ml 04/29/25 09:14
Data Reviewed
-
Lab Data: Labs Reviewed by me
Impression/Plan
-
Acute on chronic heart failure with preserved EF
Patient presents with recurrence of shortness of breath and lower extremity edema, and weight gain. He has not been taking his Lasix. Troponins normal. No chest pain.
Start back on IV Lasix.
Check an echocardiogram as patient presented with low normal blood pressure and his recent CT chest showed moderate pericardial effusion.
Consult cardiology.
Follow on telemetry to see the A-fib rate controlled.
He had a cardiac MRI which shows no infiltration of the myocardium. He is now having a diagnosis of histiocytosis and waiting to be evaluated at [facility].
Acute kidney injury on chronic kidney disease stage III
Creatinine jumped from 1.5 last month to 2.0 on today's lab work
Treat heart failure and follow creatinine. Consult nephrology.
Acute on chronic anemia.
Today's hemoglobin 7.2 with heart failure. Transfuse 1 unit of PRBC cautiously.
Chronic thrombocytopenia. Platelets 51K. Follow closely and reevaluate oral anticoagulant use.
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 Consult oncology.
Atrial fibrillation seems permanent
Rate controlled
Continue the beta-isidro and Eliquis
Full code
--- NOTE | 2025-04-29 13:56 | CM ---
CM reviewed chart and met with pt and daughter Herminia bedside in ED
Pt lives in 1 story in law suite attached to Herminia's home. [address].
Pt independent in ADLs, personal care and ambulation, uses walker, also has wheelchair and shower chair.
Per daughter, pt has a script from PCP for PT/OT as he is becoming weaker
No hx VN/SNF
PCP: Gualberto Felix
Pharmacy: [address]
Discharge plan: Anticipate home, watch for needs
--- NOTE | 2025-04-29 15:46 | W.CON.NEPH ---
Consultation
-
Date/Time Consultation Requested: 04/29/25 1330
Date/Time Consultation Performed: 04/29/25 1400
Requesting Provider: Onel Rey
Performing Provider: Julianna Gould
Reason for Consultation: SAMEERA with CKD
Medical History
-
Chief Complaint: sob, worsening edema
History of Present Illness:
84-year-old male who has history of hyperlipidemia, CKD3 cr 1.5 in March, hypertension on BB, obesity, recent diagnosis of Erdheim-Halle disease, A. fib on AC with ELiquis, met acidosis on bicarb therapy, diastolic CHF whe is here for sob and
increasing LE edema with weeping and wt gain.
Patient reportedly had shortness of breath/RUIZ started in December, slowly progressed which required him to admitted to the hospital with A. fib RVR in [place].� He also noted to have anemia and thrombocytopenia.� For which she underwent bone marrow
biopsy on 03/09.� Biopsy reveals Erdheim-Tensas disease, BRAF Positive. He was started on amiodarone, bb and�ARB� discontinued.
He was admitted to [facility] with the CHF in March.� Diuretics and Farxiga were started. Stopped amiodarone, beta isidro dose increased 100 mg twice a day. Edema and sob have improved.
His baseline creatinine is 1.2-1.4 noted elevated at least since 2015.� Recently post d/c creatinine is up to 2 hence diuretics held per cards and saw Nephrology in office on 04/15. SInce then he noted to SBP in 80 range with out symptoms. Farxiga
held and BB dose reduced.
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 With weight gain he was resume lasix few days ago but he was seen by his PCP yesterday and recommended to come to hospital since pt clinically worsening. his appetite has been
poor and family thinks he lost muscle weight. No dysuria. Mortgage Underwriter CP or abd pain. but c/o abd distension. No n/v. No fevers or chills.
He also waiting for second opinion at [place] on 05/13.�
TOday CXR Noted CHF, cr at 2. Nephrology asked to further eval.
Past Medical History
Atrial Fibrillation
Essential Hypertension
Peripheral Neuropathy
CKD Stage IIIb
Chronic Metabolic Acidosis
GERD / Barahona's Esophagus
K stone 2020
Erdheim-halle diseas
Past Surgical History: Other (Bladder Stone TURP Colon Resection)
Social History
Tobacco: Former Smoker (Quit cigarettes about 30 years. Quit cigars about 15 years ago)
Alcohol: Other (Rare alcohol use, less than once per month)
Living: With Family
Family History
no CKD
Family History: Not Pertinent
Allergies / Home Medications
Allergy/AdvReac Type Severity Reaction Status Date / Time
No Known Allergies Allergy Unverified 03/15/25 11:38
�Medication �Instructions �Recorded �Confirmed �Type
ferrous sulfate 325 mg (65 mg 325 mg PO DAILY Supplement 03/15/25 04/29/25 History
iron) tablet
omeprazole 20 mg tablet,delayed 20 mg PO DAILY Gastrointestinal 03/15/25 04/29/25 History
release Issue
timolol 0.5 % eye drops 1 drp LEFT EYE BID Eye Condition 03/15/25 04/29/25 History
apixaban 2.5 mg tablet (Eliquis) 2.5 mg PO BID Blood Clot 04/29/25 04/29/25 History
Prevention/Tx
docusate sodium 100 mg capsule 100 mg PO BID Constipation 04/29/25 04/29/25 History
(Colace)
fluticasone propionate 50 1 spray intranasal DAILY Allergies 04/29/25 04/29/25 History
mcg/actuation nasal
spray,suspension
ipratropium bromide 42 mcg (0.06 2 spray intranasal QID 04/29/25 04/29/25 History
%) nasal spray Lung/Breathing Issues
metoprolol succinate 100 mg 50 mg PO BID Blood Pressure 04/29/25 04/29/25 History
tablet,extended release 24 hr
sodium bicarbonate 650 mg tablet 650 mg PO DAILY CKD 04/29/25 04/29/25 History
Review of Systems
-
All other systems: Negative unless noted
Physical Exam
Vital Signs
Vital Signs
Temp Pulse Resp BP Pulse Ox
98 F 111 18 111/72 99
04/29/25 15:41 04/29/25 15:41 04/29/25 15:41 04/29/25 15:41 04/29/25 15:41
Lab Results
WBC 8.9 10^3/uL (4.8-10.8) 04/29/25 09:14
RBC 2.48 10^6/uL (4.70-6.10) L 04/29/25 09:14
Hgb 7.2 g/dL (13.0-18.0) L 04/29/25 09:14
Hct 23.6 % (39.0-52.0) L 04/29/25 09:14
Plt Count 51 10^3/uL (130-400) L 04/29/25 09:14
Sodium 130 mmol/L (135-145) L 04/29/25 09:14
Potassium 4.9 mmol/L (3.5-5.1) 04/29/25 09:14
Chloride 102 mmol/L (98-107) 04/29/25 09:14
Carbon Dioxide 20 mmol/L (22-30) L 04/29/25 09:14
BUN 38 mg/dl (9-20) H 04/29/25 09:14
Creatinine 2.0 mg/dL (0.7-1.3) H 04/29/25 09:14
eGFR 32.71 04/29/25 09:14
Glucose 176 mg/dl (70-99) H 04/29/25 09:14
Calcium 7.9 mg/dl (8.4-10.2) L 04/29/25 09:14
Meb-L-Xcehtsjtnyj Pept 5590 pg/ml 04/29/25 09:14
Albumin 2.5 g/dl (3.5-5.0) L 04/29/25 09:14
Physical Exam
General: Awake, Alert, Oriented, AOx3, No Distress and Nontoxic
HEENT: EOMI, Anicteric, Facial Symmetry and Neck Supple
Respiratory: Crackels, Normal Excursion and Nonlabored Respirations
Cardiac: S1/S2 and Regular Rate/Rhythm
Breast: Deferred by me
Abdomen: Soft, Nontender and Other (distended)
Musculoskeletal: No Cyanosis and Edema (3+)
Neuro: Nonfocal/Grossly Intact
Psych: Mood/afflect pleasant, Insight/judgement good and Appropriate
Data Reviewed
-
Labs: Labs Reviewed by me, Discussed with Patient and Discussed with Family
Assessment/Plan
-
IMP:
Acute on chronic heart failure with preserved EF
Acute on CKD [id number] last 1.5 in March
Hypotension
Met acidosis
hypoantremia
Acute on chronic anemia.
Chronic thrombocytopenia.
Erdheim-halle disease -form of histiocytosis
Atrial fibrillation seems permanent
HLD
h/o K stone
GERD
Plan:
A/w SOB, edema -acute on chr CHFPEF
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
no hydro on recent CT 04/26, but Diffuse histiocytosis soft tissue infiltration of the kidneys
may have to compromise higher cr to maintain euvolemia
he also has hypoalbuminemia too-out pt U PCR only 200mg/gm of cr
need to increase solute intake
cont diuresis per cards
monitor BP closely on BB, has been running low, cortisol was 23 appropriate
may need prn midodirne
hold po bicarb while getting diuresis
follow h/h post PRBC
follow echo and labs
hyponatremia from hypervolemia-maintain FR
d/w pt and daughter at bedside
--- NOTE | 2025-04-29 17:32 | PTCARENOTE ---
Transported from ED to room #319-01. Walked from stretcher to bed. Oriented to room, assessment completed, will continue plan of care.
[2025-04-29] MEDS: ELIQUIS 2.5 MG PO (20:49)
[2025-04-29] MEDS: TIMOPTIC 0.5% OPHTHALMIC SOLUTION 1 DROP LEFT EYE (20:49)
[2025-04-29] MEDS: COLACE 100 MG PO (20:49)
[2025-04-29] MEDS: TOPROL XL 50 MG PO (20:51)
[2025-04-30] VITALS (9 sets, daily range): BP systolic 95–107; BP diastolic 50–74; BMI 36.4
--- NOTE | 2025-04-30 07:08 | CON.ONC ---
Consultation
-
Date Consultation Requested: 04/29/25
Date Consultation Performed: 04/30/25
Requesting Provider: Audi
Performing Provider: Joslyn
Reason for Consultation: Erdenheim Wrightstown Disease
Impression
Impression
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
Recurrent CHF (HFpEF)
Permanent atrial fibrillation
Stage 3b chronic kidney disease
Plan
Plan
Tx of CHF per cardiology.
Will discuss with the [facility] team as at this point I believe we need to start him on a BRAF inhibitor for this very rare disease with management of his CHF and Stage 3b CKD acutely as being done..
Scans reviewed. So far only abnormals are: mesenteric edema/infiltration, mild hepatosplenomegaly on CT, moderate on cardiac MRI, and soft tissue infiltration of both kidneys.
Cardiac MRI and Bone scan EHSAN.
Also anemia and thrombocytopenia.
For PRBC transfusion with HgB 7.2
Has F/U with me 05/03 and has [facility] consult 05/12.
PET scheduled for today pushed back until Thursday 05/03.
Will follow as needed.
Patient History
History of Present Illness
CC: Progressive SOB, LE edema, weight gain
84-year-old man who lives in [place] but has family and doctors in [place] was admitted to [facility] in [place], [place] with new onset atrial fibrillation/CHF requiring cardioversion, diuresis, and medication
adjustments. He was noted to have new cytopenias for which he underwent a bone marrow aspirate and biopsy on 03/09/2025. He presented back to [facility] ER after traveling back from [place] and was rehospitalized again with CHF. Diabetes Educator
consulted in [place] for thrombocytopenia and a suspected lymphoproliferative disorder. Bone marrow biopsy obtained. Initially, he was told he had CLL but I received a call from the patient's polysomnographic technologist in [place], Dr. Alexis, stating the bone marrow
biopsy and workup revealed a very rare disorder Erdheim�Osiel disease with a BRAF positive molecular panel. In speaking with the patient's polysomnographic technologist, the patient does have splenomegaly, the physician recommending a whole-body CT scan for
staging. Patient also was told that standard treatment is using a BRAF inhibitor such as trametinib, etc. 3 to 4 months ago, patient was completely asymptomatic, lived alone in [place] and golfed 3 or 4 times a week.Patient seen by me 04/08 for local
care and workup and I ordered a CT C/A/P, PET, cardiac MRI, bone scan. [facility] Consultation including path review pending.
This is his 3rd CHF hospitalization. He was sent by his PCP for close management of diuresis with cardiology and nephrology oversight. Already down 2 lbs. Feelsing better. S/P 1 u PRBC.
Past-Medical/Surgical History
PMH:
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
Permanent new onset atrial fibrillation
Congestive heart failure (HFpEF) with LVEF 55-60% recent ECHO
Hyperlipidemia
Stage 3b chronic kidney disease
Hyponatremia
Iron deficiency anemia
Hypertension
Morbid obesity
anemia
PSH:
Bladder Stone
TURP
Colon Resection
Social History
Former Smoker. Year Quit >10 years ago.
Social use of alcohol.
Occupational Status: Former - retired.
Marital Status: Patient is
Family Medical History
Father asbestosis
Mother age 87
Brother: Prostate cancer
Patient Medication
�Medication �Instructions �Recorded �Confirmed �Last Taken �Type
ferrous sulfate 325 mg (65 mg 325 mg PO DAILY Supplement 03/15/25 04/29/25 04/29/25 History
iron) tablet
omeprazole 20 mg tablet,delayed 20 mg PO DAILY Gastrointestinal 03/15/25 04/29/25 04/29/25 History
release Issue
timolol 0.5 % eye drops 1 drp LEFT EYE BID Eye Condition 03/15/25 04/29/25 04/29/25 History
apixaban 2.5 mg tablet (Eliquis) 2.5 mg PO BID Blood Clot 04/29/25 04/29/25 04/29/25 History
Prevention/Tx
docusate sodium 100 mg capsule 100 mg PO BID Constipation 04/29/25 04/29/25 04/29/25 History
(Colace)
fluticasone propionate 50 1 spray intranasal DAILY Allergies 04/29/25 04/29/25 04/29/25 History
mcg/actuation nasal
spray,suspension
ipratropium bromide 42 mcg (0.06 2 spray intranasal QID 04/29/25 04/29/25 04/29/25 History
%) nasal spray Lung/Breathing Issues
metoprolol succinate 100 mg 50 mg PO BID Blood Pressure 04/29/25 04/29/25 04/29/25 History
tablet,extended release 24 hr
sodium bicarbonate 650 mg tablet 650 mg PO DAILY CKD 04/29/25 04/29/25 04/29/25 History
Active Medications
Generic Name Dose Route Start Last Admin
Trade Name Freq PRN Reason Stop Dose Admin
Apixaban 2.5 mg 04/29/25 20:00 04/29/25 20:49
Apixaban (Eliquis) 2.5 Mg Tablet PO 05/27/25 19:59 2.5 mg
BID TRISTEN Administration
Docusate Sodium 100 mg 04/29/25 20:00 04/29/25 20:49
Docusate Sodium 100 Mg Capsule PO 05/27/25 19:59 100 mg
BID TRISTEN Administration
Ferrous Sulfate 325 mg 04/30/25 08:00
Ferrous Sulfate 325 Mg Tablet PO 05/28/25 07:59
DAILY TRISTEN
Furosemide 40 mg 04/29/25 16:00 04/29/25 16:37
Furosemide 40 Mg (10 Mg/Ml) 4 Ml Vial IV 05/27/25 15:59 40 mg
BID AT 0800,1600 TRISTEN Administration
Metoprolol Succinate 50 mg 04/29/25 20:00 04/29/25 20:51
Metoprolol 50 Mg Extended Release Tablet PO 05/27/25 19:59 50 mg
BID TRISTEN Administration
Pantoprazole Sodium 40 mg 04/30/25 08:00
Pantoprazole 40 Mg Delayed Release Tablet PO 05/28/25 07:59
DAILY TRISTEN
Sodium Bicarbonate 650 mg 04/30/25 08:00
Sodium Bicarbonate 650 Mg Tablet PO 05/28/25 07:59
DAILY TRISTEN
Sodium Chloride 0 flush 04/29/25 17:00
Sodium Chloride 0.9% (Flush) Syringe IV 05/27/25 16:59
PER PROTOCOL TRISTEN
Timolol Maleate 0 drop 04/29/25 20:00 04/29/25 20:49
Timolol 0.5% (Ophthalmic Solution) Bottle LEFT EYE 05/27/25 19:59 1 drop
BID TRISTEN Administration
Physical Exam
-
General: Well Developed, Well Nourished, No Apparent Distress and Comfortable
HEENT: Negative Jaundice
Cardiology: S1 and S2
Pulmonary: Clear
Extremities: Edema (1+)
Labs
Lab Results
WBC 8.9 10^3/uL (4.8-10.8) 04/29/25 09:14
RBC 2.48 10^6/uL (4.70-6.10) L 04/29/25 09:14
Hgb 7.2 g/dL (13.0-18.0) L 04/29/25 09:14
Hct 23.6 % (39.0-52.0) L 04/29/25 09:14
MCV 95.2 fL (80.0-94.0) H 04/29/25 09:14
MCH 29.0 pg (27.0-31.0) 04/29/25 09:14
MCHC 30.5 g/dL (33.0-37.0) L 04/29/25 09:14
RDW 21.0 % (11.5-14.5) H 04/29/25 09:14
Plt Count 51 10^3/uL (130-400) L 04/29/25 09:14
MPV Not Reportable 04/29/25 09:14
Abs Immat Gran (auto) 0.3 10^3/uL (0-0.05) H 04/29/25 09:14
Absolute Neuts (auto) 2.5 10^3/uL (1.4-6.5) 04/29/25 09:14
Absolute Lymphs (auto) 4.8 10^3/uL (1.2-3.4) H 04/29/25 09:14
Absolute Monos (auto) 1.4 10^3/uL (0.1-0.6) H 04/29/25 09:14
Absolute Eos (auto) 0.0 10^3/uL (0-0.7) 04/29/25 09:14
Absolute Basos (auto) 0.0 10^3/uL (0-0.2) 04/29/25 09:14
Immature Gran % 2.9 % (0-0.5) H 04/29/25 09:14
Neutrophils % 27.8 % (42.2-75.2) L 04/29/25 09:14
Lymphocytes % 53.5 % (20.5-51.1) H 04/29/25 09:14
Monocytes % 15.6 % (1.7-9.3) H 04/29/25 09:14
Eosinophils % 0.1 % (0-6) 04/29/25 09:14
Basophils % 0.1 % (0-2) 04/29/25 09:14
Creatinine 2.0 mg/dL (0.7-1.3) H 04/29/25 09:14
Cardiac MRI:
MPRESSION:
1. No MRI evidence for diffuse infiltrative myocardial disease.
2. Global systolic LV function: Normal.
3. Global systolic RV function: Normal.
4. LV viability: Normal.
5. Valvular disease: (1) Mild to moderate tricuspid regurgitation. (2) Mild mitral regurgitation.
6. Small pericardial effusion.
7. Small bilateral pleural effusions.
8. Small volume of upper abdominal ascites.
9. Diffuse histiocytosis soft tissue infiltration of the kidneys.
10. Mild hepatomegaly.
11. Moderate splenomegaly.
Vital Signs
Vital Signs
Temp Pulse Resp BP Pulse Ox
98.4 F 102 16 98/66 98
04/30/25 03:05 04/30/25 03:05 04/30/25 03:05 04/30/25 03:05 04/30/25 03:05
[2025-04-30 07:36] LABS: Hematocrit 21.7 % (39.0-52.0); Hemoglobin 6.9 g/dL (13.0-18.0); Mean Corp Hgb Conc. 31.8 g/dL (33.0-37.0); Mean Corpuscular Volume 93.1 fL (80.0-94.0); Platelet Count 44 10^3/uL (130-400); Red Cell Dist. Width 20.7 % (11.5-14.5)
[2025-04-30 08:02] LABS: Blood Urea Nitrogen 39 mg/dl (9-20); Calcium 7.6 mg/dl (8.4-10.2); Carbon Dioxide 20 mmol/L (22-30); Chloride 104 mmol/L (98-107); Estimated Creatinine Clearance 38 ml/min; Glucose 119 mg/dl (70-99); Potassium 4.0 mmol/L (3.5-5.1); Sodium 132 mmol/L (135-145); eGFR 34.79
[2025-04-30 08:06] LABS: Absolute Neutrophils -Man Diff 5.2 10^3/uL (1.4-6.5); Normal RBC Morphology Yes; Platelets Checked Yes; Total Cells Counted 100
[2025-04-30] MEDS: TOPROL XL 50 MG PO ×2 (08:57→19:56)
[2025-04-30] MEDS: ELIQUIS 2.5 MG PO ×2 (08:57→19:55)
[2025-04-30] MEDS: COLACE 100 MG PO ×2 (08:57→19:55)
[2025-04-30] MEDS: PROTONIX 40 MG PO (08:57)
[2025-04-30] MEDS: TIMOPTIC 0.5% OPHTHALMIC SOLUTION 1 DROP LEFT EYE ×2 (08:58→19:56)
[2025-04-30] MEDS: FEOSOL 325 MG PO (08:58)
[2025-04-30] MEDS: LASIX 40 MG IV (08:58)
[2025-04-30] MEDS: SODIUM BICARBONATE 650 MG PO (09:01)
--- NOTE | 2025-04-30 10:15 | W.PN.CD ---
Today's Communication / Plan
-
- Continue Lasix 40 mg IV daily for now.
- On Eliquis for OAC--platelets are now 44--need to monitor closely for any signs of bleeding (also, hemoglobin is 6.9); recommendations as per Heme/Onc.
- Follow-up echo ordered today to assess for pericardial effusion; if present, will need to stop Lasix.
Impression / Plan
-
[id number] HFpEF:
- Echo 03/16/2025: LVEF 55-60%.
-weight up, LE edema noted. This is related to being off Lasix for renal dysfunction.
-agree with IV Lasix, which requires intensive monitoring.
- Continue Lasix 40 mg IV daily for now.
-CHF education
SAMEERA on CKD:
-nephrology is consulted
- Continue to monitor with diuresis
AFIB, at least persistent:
- Rate-controlled.
-continue metoprolol and follow telemetry. Follow BP's, which are on low end. He is not symptomatic.
- On Eliquis for OAC--platelets are now 44--need to monitor closely for any signs of bleeding (also, hemoglobin is 6.9); recommendations as per Heme/Onc.
Anemia:
- Hemoglobin 6.9 today.
-getting another unit of PRBC's, monitor response
-Heme/Onc consulted. He is seeing a specialist soon for Erdheim-Dillingham disease down at [place].
Pericardial effusion:
-small on MRI, small to moderate on CT. Not noted on recent echo.
- Follow-up echo ordered today to assess for pericardial effusion; if present, will need to stop Lasix.
Data:
Cardiac MRI 04/26/25: No MRI evidence for diffuse infiltrative myocardial disease. Global systolic LV function: Normal. Global systolic RV function: Normal. LV viability: Normal. Valvular disease: (1) Mild to moderate tricuspid regurgitation. (2)
Mild mitral regurgitation. Small pericardial effusion. Small bilateral pleural effusions. Small volume of upper abdominal ascites. Diffuse histiocytosis soft tissue infiltration of the kidneys. Mild hepatomegaly. Moderate splenomegaly.
Echo 03/16/25: Normal size and function with no regional wall motion abnormalities. LVEF is 55-60% by visual estimation. Mild concentric LVH. Normal right ventricular size and function. Mild mitral regurgitation. Insufficient TR for estimation of
PASP.
Physical Exam
Vital Signs/Labs
Vital Signs
Temp Pulse Resp BP Pulse Ox
98.1 F 100 16 104/69 94
04/30/25 08:12 04/30/25 08:12 04/30/25 08:12 04/30/25 08:12 04/30/25 08:12
04/29/25 04/30/25 05/01/25
06:59 06:59 06:59
Actual Weight 114.957 kg
04/30/25 06:56
04/30/25 06:56
PT 26.5 Sec (11.4-14.6) H 04/29/25 09:14
INR 2.43 04/29/25 09:14
APTT 37.0 Sec (23.4-35.0) H 04/29/25 09:14
Magnesium 2.0 mg/dl (1.6-2.3) 04/29/25 09:14
04/29/25
09:14
Xtu-[id number]-[id number] Pept 5590
LAB Results
04/29/25
09:14
Troponin I < 0.012
Physical Exam
Constitutional: No acute distress and Comfortable
EENT: Anicteric
Cardiovascular: Systolic murmur absent, Rhythm/rate is irregular, Pedal edema present (1-2+) and S1S2 is normal
Respiratory: Respiratory effort normal and Lungs clear to auscul.
GI: Soft
Neuro/Psych: AO x 3
Other: Skin (Warm, dry)
Data Reviewed
-
Date of Service: April 30, 2025
EKG: Tracing Personally Visualized and interpreted ( telemetry: A-fib)
Echo: Report Reviewed by me (Echo 03/16/2025: EF 55-60%.) and Other (Ordered)
Medical Tests (PFT, Pathology etc): Discussed with Physician ( primary Hospitalist) and Discussed with Patient
Labs: Labs Reviewed by me
[2025-04-30] MEDS: MIRALAX 17 GRAMS PO (10:42)
--- NOTE | 2025-04-30 10:51 | W.PN.HOSP.TC ---
Addendum entered and electronically signed by Onel Huntley MD 05/03/25 13:51:
Afib is persistent
Original Note:
Today's Communication/Plan
-
Continue with IV Lasix and follow electrolytes
Echocardiogram today
Transfuse 1 unit of PRBC and follow CBC.
Assessment / Plan
Assessment / Plan
Acute on chronic heart failure with preserved EF
Patient presents with recurrence of shortness of breath and lower extremity edema, and weight gain. He has not been taking his Lasix. Troponins normal. No chest pain.
cw IV Lasix.
Check an echocardiogram as patient presented with low normal blood pressure and his recent CT chest showed moderate pericardial effusion.
Appt cardiology input.
Follow on telemetry .
He had a cardiac MRI which shows no infiltration of the myocardium. He is now having a diagnosis of histiocytosis and waiting to be evaluated at [facility].
Acute kidney injury on chronic kidney disease stage III
Creatinine jumped from 1.5 last month to 2.0 on today's lab work
Treat heart failure and follow creatinine. Appt nephrology input.
Acute on chronic anemia.
Adx hemoglobin 7.2 with heart failure. Transfused 1 unit of PRBC cautiously.
No adequate response. No obvious external bleeding. Check heme test stools. Transfuse 1 more unit of PRBC.
Chronic thrombocytopenia. Platelets 44 K. Follow closely daily and reevaluate oral anticoagulant use daily.
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 Oncology input and recommendations noted
Atrial fibrillation seems permanent
Rate controlled
Continue the beta-isidro and Eliquis
Full code
Discussed with cardiology today
Discussed with RN.
Total time spent on today's encounter was 52 minutes which included time spent in counseling the patient/family regarding diagnosis and treatment plan as listed above, goals of care, and symptom management. Case was discussed with nursing staff,
specialists, and care coordinators/case management. All labs and imaging personally reviewed by me. Remainder the time spent in detailed review of previous records, lab data, imaging, and other medical provider documentation.
Anticipated Discharge: > 48 hours
Subjective/Interval History
-
Date of Service: April 30, 2025
Urinating more with Johnathan being on board. He thinks he lost some weight already. Denies any shortness of breath at rest. No chest pain.
Objective Data
-
Labs:
Laboratory Results
04/30/25
06:56
WBC 7.1
Hgb 6.9 L*
Hct 21.7 L
Plt Count 44 L
Sodium 132 L
Potassium 4.0
Chloride 104
Carbon Dioxide 20 L
BUN 39 H
Creatinine 1.9 H
Glucose 119 H
Calcium 7.6 L
Vital Signs:
Vital Signs
Temp Pulse Resp BP Pulse Ox
98.1 F 100 16 104/69 94
04/30/25 08:12 04/30/25 08:12 04/30/25 08:12 04/30/25 08:12 04/30/25 08:12
I&O
04/29/25 04/30/25 05/01/25
06:59 06:59 06:59
Intake Total 1090 / 1090
Output Total 1325 / 1325
Balance -235 / -235
Physical Exam
-
General: Comfortable
Respiratory: Clear to Auscultation and Non Labored Respirations; Negative Accessory Resp Muscle Use
Cardiac: Regular Rhythm and S1/S2
GI: Soft
Musculoskeletal: Edema, Right Lower Extrem and Edema, Left Lower Extrem
Neuro: AO x 3
Psych: Calm; Negative Confused
Data Reviewed
-
Labs: Labs Reviewed by me
--- NOTE | 2025-04-30 11:55 | W.PN.NEPH.PH ---
Today's Communication / Plan
-
Continue diuretics
Assessment/Plan
-
IMP:
Acute on chronic heart failure with preserved EF
Acute on CKD [id number] last 1.5 in March
Hypotension
Met acidosis
hypoantremia
Acute on chronic anemia.
Chronic thrombocytopenia.
Erdheim-halle disease -form of histiocytosis
Atrial fibrillation seems permanent
HLD
h/o K stone
GERD
Plan:
A/w SOB, edema -acute on chr CHFPEF
Clarissa with CKD-likely from [employer], recent out pt UA shows +bld, +protein but no RBC
no hydro on recent CT 04/26, but Diffuse histiocytosis soft tissue infiltration of the kidneys
may have to compromise higher cr to maintain euvolemia
hypoalbuminemia 2.5 decreasing effective arterial blood volume-out pt U PCR only 200mg/gm of cr
may need prn midodirne
Cardiogram noted normal EF mild valvular disease
hyponatremia volume related-maintain FR
d/w pt and daughter at bedside
-
-
Date of Service: April 30, 2025
CC / HPI / ROS
-
Chief Complaint:
Shortness of breath edema
History of Present Illness:
Acute on chronic kidney disease with edema
Review of Systems:
Mild shortness of breath continues to have edema no chest pain
Labs
-
Labs:
WBC 7.1 10^3/uL (4.8-10.8) 04/30/25 06:56
RBC 2.33 10^6/uL (4.70-6.10) L 04/30/25 06:56
Hgb 6.9 g/dL (13.0-18.0) L* 04/30/25 06:56
Hct 21.7 % (39.0-52.0) L 04/30/25 06:56
Plt Count 44 10^3/uL (130-400) L 04/30/25 06:56
Sodium 132 mmol/L (135-145) L 04/30/25 06:56
Potassium 4.0 mmol/L (3.5-5.1) 04/30/25 06:56
Chloride 104 mmol/L (98-107) 04/30/25 06:56
Carbon Dioxide 20 mmol/L (22-30) L 04/30/25 06:56
BUN 39 mg/dl (9-20) H 04/30/25 06:56
Creatinine 1.9 mg/dL (0.7-1.3) H 04/30/25 06:56
eGFR 34.79 04/30/25 06:56
Glucose 119 mg/dl (70-99) H 04/30/25 06:56
Calcium 7.6 mg/dl (8.4-10.2) L 04/30/25 06:56
Dcv-W-Yxxnedbdohx Pept 5590 pg/ml 04/29/25 09:14
Albumin 2.5 g/dl (3.5-5.0) L 04/29/25 09:14
Physical Exam
-
Vital Signs:
Vital Signs
Temp Pulse Resp BP Pulse Ox
98.1 F 100 16 104/69 94
04/30/25 08:12 04/30/25 08:12 04/30/25 08:12 04/30/25 08:12 04/30/25 08:12
Respiratory:: Bilateral: Coarse
Lung Excursion:: Normal
Abdomen:: Soft
Bowel Sounds:: Normal
Extremity Edema:: +2: Bilateral:
Welsh Catheter: No
--- NOTE | 2025-04-30 14:59 | PN.CDI ---
CDI
- -
CDI:
Physician Documentation Request
Admit Date: 04/29/25 13:11
Dear Doctor Audi,
Please review the following and provide your response in the progress notes.
Clinical Indicators:
Pt admitted with Acute on Chronic HFpEF/SAMEERA on CKD 3
There is potentially conflicting documentation in the record regarding the type of atrial fibrillation
Cardiology consult and notes,' persistent A fib on eliquis...'
Documented per H&P and progress note 04/30,' Atrial fibrillation seems permanent
Due to potentially conflicting documentation If possible, please provide further specificity regarding atrial fibrillation, such as:
Persistent atrial fibrillation - episodes of continuous AF that last more than 7 days and do not self-terminate
Permanent atrial fibrillation - when a decision has been made to accept the presence of AF and there is no further attempt to restore or maintain sinus rhythm
Other - please specify
Use of terms such as suspected, likely, concern for, or probable (associated with a specific diagnosis that is being evaluated, monitored, or treated as if it exists) are acceptable and can be coded in the inpatient setting, when documented at the
time of discharge.
Thank you,
Lia Cornelius RN
CDI Specialist
[place] [employer]
Please use your independent medical judgment in providing your response.
[2025-04-30] MEDS: LASIX IV (16:14)
[2025-05-01] VITALS (9 sets, daily range): BP systolic 91–104; BP diastolic 58–71; PULSE 91; O2SAT 94–95; BMI 36.0
[2025-05-01] MEDS: COLACE 100 MG PO ×2 (08:12→19:52)
[2025-05-01] MEDS: TOPROL XL 50 MG PO ×2 (08:12→19:52)
[2025-05-01] MEDS: FEOSOL 325 MG PO (08:13)
[2025-05-01] MEDS: PROTONIX 40 MG PO (08:13)
[2025-05-01] MEDS: LASIX 40 MG IV ×2 (08:13→17:48)
[2025-05-01] MEDS: SODIUM BICARBONATE 650 MG PO (08:13)
[2025-05-01] MEDS: ELIQUIS 2.5 MG PO (08:13)
[2025-05-01] MEDS: MIRALAX 17 GRAMS PO (08:14)
[2025-05-01 08:16] LABS: Hematocrit 24.1 % (39.0-52.0); Hemoglobin 7.7 g/dL (13.0-18.0); Mean Corp Hgb Conc. 32.0 g/dL (33.0-37.0); Mean Corpuscular Volume 93.1 fL (80.0-94.0); Platelet Count 40 10^3/uL (130-400); Red Cell Dist. Width 20.0 % (11.5-14.5)
[2025-05-01 08:38] LABS: Blood Urea Nitrogen 37 mg/dl (9-20); Calcium 7.6 mg/dl (8.4-10.2); Carbon Dioxide 18 mmol/L (22-30); Chloride 104 mmol/L (98-107); Estimated Creatinine Clearance 36 ml/min; Glucose 135 mg/dl (70-99); Potassium 3.7 mmol/L (3.5-5.1); Sodium 132 mmol/L (135-145); eGFR 32.71
[2025-05-01] MEDS: TIMOPTIC 0.5% OPHTHALMIC SOLUTION 1 DROP LEFT EYE ×2 (09:48→19:53)
--- NOTE | 2025-05-01 09:53 | W.PN.CD ---
Today's Communication / Plan
-
continue Lasix 40 mg IV bid
hold eliquis for plts under 50
Impression / Plan
-
Wmwku-nk-cbdhznd HFpEF: severe
- Echo 03/16/2025: LVEF 55-60%.
-weight up, LE edema noted. This is related to being off Lasix for renal dysfunction.
-agree with IV Lasix, which requires intensive monitoring.
- Continue Lasix 40 mg IV bid
-CHF education
SAMEERA on CKD:
-nephrology is consulted
- Continue to monitor with diuresis: stable
AFIB, persistent:
- Rate-controlled.
-continue metoprolol and follow telemetry. Follow BP's, which are on low end. He is not symptomatic.
-hold eliquis now that plt under 50
Anemia:
- s/p pRBC
-Heme/Onc consulted. 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
Pericardial effusion:
-small on MRI, small to moderate on CT. Not noted on recent echo.
- small on echo
Data:
Cardiac MRI 04/26/25: No MRI evidence for diffuse infiltrative myocardial disease. Global systolic LV function: Normal. Global systolic RV function: Normal. LV viability: Normal. Valvular disease: (1) Mild to moderate tricuspid regurgitation. (2)
Mild mitral regurgitation. Small pericardial effusion. Small bilateral pleural effusions. Small volume of upper abdominal ascites. Diffuse histiocytosis soft tissue infiltration of the kidneys. Mild hepatomegaly. Moderate splenomegaly.
Echo 03/16/25: Normal size and function with no regional wall motion abnormalities. LVEF is 55-60% by visual estimation. Mild concentric LVH. Normal right ventricular size and function. Mild mitral regurgitation. Insufficient TR for estimation of
PASP.
Physical Exam
Vital Signs/Labs
Vital Signs
Temp Pulse Resp BP Pulse Ox
98.2 F 104 18 102/70 95
05/01/25 07:32 05/01/25 07:32 05/01/25 07:32 05/01/25 08:13 05/01/25 07:32
04/30/25 05/01/25 05/02/25
06:59 06:59 06:59
Actual Weight 114.957 kg 113.897 kg
05/01/25 07:18
05/01/25 07:18
PT 26.5 Sec (11.4-14.6) H 04/29/25 09:14
INR 2.43 04/29/25 09:14
APTT 37.0 Sec (23.4-35.0) H 04/29/25 09:14
Magnesium 2.0 mg/dl (1.6-2.3) 04/29/25 09:14
04/29/25
09:14
Jtw-P-Fskmefwtjgy Pept 5590
LAB Results
04/29/25
09:14
Troponin I < 0.012
Physical Exam
Constitutional: No acute distress and Comfortable
EENT: Moist mucous membranes
Cardiovascular: Systolic murmur absent, Rhythm/rate is irregular, Pedal edema present and JVD present
Respiratory: Respiratory effort normal and Lungs clear to auscul.
Neuro/Psych: AO x 3
Data Reviewed
-
Date of Service: May 01, 2025
EKG: Other (Tele: A fib 90s)
Labs: Labs Reviewed by me
--- NOTE | 2025-05-01 12:34 | CM ---
Addendum entered by Dayanara Blackburn 05/01/25 12:43:
CM consult completed for VN
Original Note:
Patient seen at bedside with daughter & grand-daughter
PT/OT rec HH
options reviewed. Prefer [facility]
Referral placed in [facility]
PLAN: home with [facility] when stable
--- NOTE | 2025-05-01 12:47 | W.PN.NEPH.PH ---
Today's Communication / Plan
-
Lasix
Assessment/Plan
-
IMP:
Acute on chronic heart failure with preserved EF
Acute on CKD [id number] last 1.5 in March
Hypotension
Met acidosis
hypoantremia
Acute on chronic anemia.
Chronic thrombocytopenia.
Erdheim-halle disease -form of histiocytosis
Atrial fibrillation seems permanent
HLD
h/o K stone
GERD
Plan:
A/w SOB, edema -acute on chr CHFPEF
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
no hydro on recent CT 04/26, but Diffuse histiocytosis soft tissue infiltration of the kidneys
may have to compromise higher cr to maintain euvolemia
hypoalbuminemia 2.5 decreasing effective arterial blood volume-out pt U PCR only 200mg/gm of cr
Cardiogram noted normal EF mild valvular disease
hyponatremia volume related-maintain FR
Continue Lasix
d/w pt and daughter at bedside
-
-
Date of Service: May 01, 2025
CC / HPI / ROS
-
Chief Complaint:
Shortness of breath edema
History of Present Illness:
Acute on chronic kidney disease with edema
Review of Systems:
Mild shortness of breath continues to have edema no chest pain
Labs
-
Labs:
WBC 7.2 10^3/uL (4.8-10.8) 05/01/25 07:18
RBC 2.59 10^6/uL (4.70-6.10) L 05/01/25 07:18
Hgb 7.7 g/dL (13.0-18.0) L 05/01/25 07:18
Hct 24.1 % (39.0-52.0) L 05/01/25 07:18
Plt Count 40 10^3/uL (130-400) L 05/01/25 07:18
Sodium 132 mmol/L (135-145) L 05/01/25 07:18
Potassium 3.7 mmol/L (3.5-5.1) 05/01/25 07:18
Chloride 104 mmol/L (98-107) 05/01/25 07:18
Carbon Dioxide 18 mmol/L (22-30) L 05/01/25 07:18
BUN 37 mg/dl (9-20) H 05/01/25 07:18
Creatinine 2.0 mg/dL (0.7-1.3) H 05/01/25 07:18
eGFR 32.71 05/01/25 07:18
Glucose 135 mg/dl (70-99) H 05/01/25 07:18
Calcium 7.6 mg/dl (8.4-10.2) L 05/01/25 07:18
Ipt-U-Xsnjrsuuynm Pept 5590 pg/ml 04/29/25 09:14
Albumin 2.5 g/dl (3.5-5.0) L 04/29/25 09:14
Physical Exam
-
Vital Signs:
Vital Signs
Temp Pulse Resp BP Pulse Ox
97.8 F 95 14 91/60 95
05/01/25 11:14 05/01/25 11:14 05/01/25 11:14 05/01/25 11:14 05/01/25 11:14
Respiratory:: Bilateral: Coarse
Lung Excursion:: Normal
Abdomen:: Soft
Bowel Sounds:: Normal
Extremity Edema:: +2: Bilateral:
Welsh Catheter: No
--- NOTE | 2025-05-01 12:55 | W.PN.HOSP.TC ---
Today's Communication/Plan
-
consider another pRBC transfusion
continue meds as able
Assessment / Plan
Assessment / Plan
pt is an 84 year old male
Acute on chronic heart failure with preserved EF--had not been taking his lasix--apprec cards/renal--cont IV lasix--He had a cardiac MRI which shows no infiltration of the myocardium. He is now having a diagnosis of histiocytosis and waiting to be
evaluated at [facility]--Echo with normal EF and small anterior pericardial effusion
Acute kidney injury on chronic kidney disease stage III--Creatinine jumped from 1.5 last month to 2.0--Treating heart failure and follow creatinine--apprec renal/cards input
Acute on chronic anemia--s/p 2 units pRBC with bump to 7.7--consider another unit don with soft BP
Chronic thrombocytopenia-- Platelets 44 K. Follow closely daily and reevaluate oral anticoagulant use daily.
Erdheim-[place] disease --form of histiocytosis -dx recently -await [facility] 05/12/25 -outpatient CT shows infiltration of the kidneys raising concern of that involvement by history of cytosis. Oncology input and recommendations noted
Atrial fibrillation seems permanent--Rate controlled--Continue the beta-isidro and Eliquis if platelet count > 50K
DVT proph
code status -- full code
Anticipated Discharge: > 48 hours
Subjective/Interval History
-
Date of Service: May 01, 2025
pt feeling better
Objective Data
-
Labs:
Laboratory Results
05/01/25
07:18
WBC 7.2
Hgb 7.7 L
Hct 24.1 L
Plt Count 40 L
Sodium 132 L
Potassium 3.7
Chloride 104
Carbon Dioxide 18 L
BUN 37 H
Creatinine 2.0 H
Glucose 135 H
Calcium 7.6 L
Vital Signs:
max temp for 24 hours
05/01/25
03:00
Temp 98.2 F
Vital Signs
Temp Pulse Resp BP Pulse Ox
97.8 F 95 14 91/60 95
05/01/25 11:14 05/01/25 11:14 05/01/25 11:14 05/01/25 11:14 05/01/25 11:14
I&O
04/30/25 05/01/25 05/02/25
06:59 06:59 06:59
Intake Total 1090 / 1090 1810 / 1810
Output Total 1325 / 1325 1225 / 1225
Balance -235 / -235 585 / 585
Review of Systems
-
All other systems: Reviewed and negative
Physical Exam
-
General: Well Developed, Well Nourished and No Apparent Distress
HEENT: Normocephalic and Atraumatic; Negative Oxygen
Respiratory: Clear to Auscultation; Negative Wheezes or Rhonchi
Cardiac: Regular Rhythm and S1/S2; Negative Murmur
GI: Soft, Nontender, Nondistended and Normal Bowel Sounds
Musculoskeletal: No Clubbing and No Cyanosis; Negative No Edema (4+ pitting edema bilaterally)
Neuro: Awake
[2025-05-01] MEDS: MELATONIN 5 MG PO (20:22)
[2025-05-02] VITALS (10 sets, daily range): BP systolic 73–116; BP diastolic 55–86; BMI 36.0
[2025-05-02 06:10] LABS: Hematocrit 24.5 % (39.0-52.0); Hemoglobin 7.8 g/dL (13.0-18.0); Mean Corp Hgb Conc. 31.8 g/dL (33.0-37.0); Mean Corpuscular Volume 94.2 fL (80.0-94.0); Platelet Count 42 10^3/uL (130-400); Red Cell Dist. Width 19.9 % (11.5-14.5)
[2025-05-02 06:21] LABS: ALT (SGPT) < 10 U/L (0-50); AST (SGOT) 8 U/L (17-59); Albumin 2.2 g/dl (3.5-5.0); Alkaline Phosphatase 53 U/L (38-126); Blood Urea Nitrogen 38 mg/dl (9-20); Calcium 7.4 mg/dl (8.4-10.2); Carbon Dioxide 20 mmol/L (22-30); Chloride 104 mmol/L (98-107); Estimated Creatinine Clearance 40 ml/min; Glucose 121 mg/dl (70-99); Magnesium 1.9 mg/dl (1.6-2.3); Potassium 3.5 mmol/L (3.5-5.1); Sodium 132 mmol/L (135-145); Total Protein 4.3 g/dl (6.3-8.2); eGFR 37.12
[2025-05-02] MEDS: MIRALAX 17 GRAMS PO (07:50)
[2025-05-02] MEDS: LASIX IV (07:52)
[2025-05-02] MEDS: COLACE 100 MG PO ×2 (07:53→19:59)
[2025-05-02] MEDS: FEOSOL 325 MG PO (07:53)
[2025-05-02] MEDS: PROTONIX 40 MG PO (07:53)
[2025-05-02] MEDS: TIMOPTIC 0.5% OPHTHALMIC SOLUTION 1 DROP LEFT EYE ×2 (07:54→19:59)
[2025-05-02] MEDS: SODIUM BICARBONATE 650 MG PO (07:57)
[2025-05-02] MEDS: TOPROL XL PO (09:21)
--- NOTE | 2025-05-02 10:09 | W.PN.HOSP.TC ---
Today's Communication/Plan
-
transfuse 1 unit pRBC today
give lasix (which was held earlier today) after pRBC if BP improves
Assessment / Plan
Assessment / Plan
pt is an 84 year old male
Acute on chronic heart failure with preserved EF--had not been taking his lasix--apprec cards/renal--cont IV lasix (administration has been limited by low BP)--He had a cardiac MRI which shows no infiltration of the myocardium. He is now having a
diagnosis of histiocytosis and waiting to be evaluated at [facility]--Echo with normal EF and small anterior pericardial effusion
Acute kidney injury on chronic kidney disease stage III--Creatinine jumped from 1.5 last month to 2.0--Treating heart failure and follow creatinine--apprec renal/cards input
Acute on chronic anemia--s/p 2 units pRBC with bump to 7.7--will add another unit followed by lasix administration
Chronic thrombocytopenia-- Platelets 44 K. Follow closely daily and reevaluate oral anticoagulant use daily.
Erdheim-[place] disease --form of histiocytosis--dx recently -await [facility] 05/12/25 -outpatient CT shows infiltration of the kidneys raising concern of that involvement by history of cytosis. Oncology input and recommendations noted
Atrial fibrillation seems permanent--Rate controlled--Continue the beta-isidro and Eliquis if platelet count > 50K
DVT proph
code status -- full code
Anticipated Discharge: Within 24 hours
Subjective/Interval History
-
Date of Service: May 02, 2025
pt without c/o
Objective Data
-
Labs:
Laboratory Results
05/02/25
05:18
WBC 7.4
Hgb 7.8 L
Hct 24.5 L
Plt Count 42 L
Sodium 132 L
Potassium 3.5
Chloride 104
Carbon Dioxide 20 L
BUN 38 H
Creatinine 1.8 H
Glucose 121 H
Calcium 7.4 L
Total Bilirubin 2.1 H
AST 8 L
ALT < 10
Alkaline Phosphatase 53
Vital Signs:
max temp for 24 hours
05/01/25
23:00
Temp 100.0 F
Vital Signs
Temp Pulse Resp BP Pulse Ox
97.7 F 103 18 88/55 95
05/02/25 07:46 05/02/25 07:46 05/02/25 07:46 05/02/25 09:21 05/02/25 07:46
I&O
05/01/25 05/02/25 05/03/25
06:59 06:59 06:59
Intake Total 1810 / 1810 1680 / 1680
Output Total 1225 / 1225 1250 / 1250
Balance 585 / 585 430 / 430
Review of Systems
-
All other systems: Reviewed and negative
Physical Exam
-
General: Well Developed, Well Nourished and No Apparent Distress
HEENT: Normocephalic and Atraumatic
Respiratory: Clear to Auscultation; Negative Wheezes, Rales, Rhonchi or Crackles
Cardiac: Irregular Rhythm
GI: Soft, Nontender, Nondistended and Normal Bowel Sounds
Musculoskeletal: No Clubbing and No Cyanosis; Negative No Edema (still with 4+ LE edema)
Neuro: Awake
--- NOTE | 2025-05-02 12:00 | W.PN.CD ---
Today's Communication / Plan
-
pRBC and IV diuresis
hold eliquis for low plts
trend Cr
Impression / Plan
-
Cyboq-zh-boovvjo HFpEF: severe
- Echo 03/16/2025: LVEF 55-60%.
-weight up, LE edema noted. This is related to being off Lasix for renal dysfunction.
-agree with IV Lasix, which requires intensive monitoring.
- Continue Lasix 40 mg IV bid
-CHF education
SAMEERA on CKD:
-nephrology is consulted
- Continue to monitor with diuresis: improved
AFIB, persistent:
- Rate-controlled.
-continue metoprolol and follow telemetry. Follow BP's, which are on low end. He is not symptomatic.
-hold eliquis now that plt under 50
Anemia:
- s/p pRBC
-Heme/Onc consulted. He is seeing a specialist soon for Erdheim-[place] disease down at [place].
Pericardial effusion:
-small on MRI, small to moderate on CT. Not noted on recent echo.
- small on echo
Data:
Cardiac MRI 04/26/25: No MRI evidence for diffuse infiltrative myocardial disease. Global systolic LV function: Normal. Global systolic RV function: Normal. LV viability: Normal. Valvular disease: (1) Mild to moderate tricuspid regurgitation. (2)
Mild mitral regurgitation. Small pericardial effusion. Small bilateral pleural effusions. Small volume of upper abdominal ascites. Diffuse histiocytosis soft tissue infiltration of the kidneys. Mild hepatomegaly. Moderate splenomegaly.
Echo 03/16/25: Normal size and function with no regional wall motion abnormalities. LVEF is 55-60% by visual estimation. Mild concentric LVH. Normal right ventricular size and function. Mild mitral regurgitation. Insufficient TR for estimation of
PASP.
Physical Exam
Vital Signs/Labs
Vital Signs
Temp Pulse Resp BP Pulse Ox
97.6 F 98 18 93/62 97
05/02/25 11:00 05/02/25 11:00 05/02/25 11:00 05/02/25 11:00 05/02/25 11:00
05/01/25 05/02/25 05/03/25
06:59 06:59 06:59
Actual Weight 113.897 kg 113.653 kg
05/02/25 05:18
05/02/25 05:18
PT 26.5 Sec (11.4-14.6) H 04/29/25 09:14
INR 2.43 04/29/25 09:14
APTT 37.0 Sec (23.4-35.0) H 04/29/25 09:14
Magnesium 1.9 mg/dl (1.6-2.3) 05/02/25 05:18
04/29/25
09:14
Jld-S-Mvuvtadjozd Pept 5590
Physical Exam
Constitutional: No acute distress and Comfortable
EENT: Moist mucous membranes
Cardiovascular: Rhythm/rate is irregular, Pedal edema present, JVD present and Systolic murmur present
Respiratory: Respiratory effort normal and Lungs clear to auscul.
Neuro/Psych: AO x 3
Data Reviewed
-
Date of Service: May 02, 2025
EKG: Other (Tele: SR )
Labs: Labs Reviewed by me
--- NOTE | 2025-05-02 12:33 | W.PN.NEPH.PH ---
Today's Communication / Plan
-
Lasix
Assessment/Plan
-
IMP:
Acute on chronic heart failure with preserved EF
Acute on CKD [id number] last 1.5 in March
Hypotension
Met acidosis
hypoantremia
Acute on chronic anemia.
Chronic thrombocytopenia.
Erdheim-halle disease -form of histiocytosis
Atrial fibrillation seems permanent
HLD
h/o K stone
GERD
Plan:
A/w SOB, edema -acute on chr CHFPEF
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
no hydro on recent CT 04/26, but Diffuse histiocytosis soft tissue infiltration of the kidneys
may have to compromise higher cr to maintain euvolemia
hypoalbuminemia 2.5 decreasing effective arterial blood volume-out pt U PCR only 200mg/gm of cr
Cardiogram noted normal EF mild valvular disease
hyponatremia volume related-maintain FR
Continue Lasix. Held with lower blood pressures.
For blood transfusion per primary team
Creatinine remained stable at 1.8
d/w pt and daughter at bedside
-
-
Date of Service: May 02, 2025
CC / HPI / ROS
-
Chief Complaint:
Shortness of breath edema
History of Present Illness:
Acute on chronic kidney disease with edema
Review of Systems:
Edema improved significantly with minimal shortness of breath
Labs
-
Labs:
WBC 7.4 10^3/uL (4.8-10.8) 05/02/25 05:18
RBC 2.60 10^6/uL (4.70-6.10) L 05/02/25 05:18
Hgb 7.8 g/dL (13.0-18.0) L 05/02/25 05:18
Hct 24.5 % (39.0-52.0) L 05/02/25 05:18
Plt Count 42 10^3/uL (130-400) L 05/02/25 05:18
Sodium 132 mmol/L (135-145) L 05/02/25 05:18
Potassium 3.5 mmol/L (3.5-5.1) 05/02/25 05:18
Chloride 104 mmol/L (98-107) 05/02/25 05:18
Carbon Dioxide 20 mmol/L (22-30) L 05/02/25 05:18
BUN 38 mg/dl (9-20) H 05/02/25 05:18
Creatinine 1.8 mg/dL (0.7-1.3) H 05/02/25 05:18
eGFR 37.12 05/02/25 05:18
Glucose 121 mg/dl (70-99) H 05/02/25 05:18
Calcium 7.4 mg/dl (8.4-10.2) L 05/02/25 05:18
Akb-L-Sdneobxsrlw Pept 5590 pg/ml 04/29/25 09:14
Albumin 2.2 g/dl (3.5-5.0) L 05/02/25 05:18
Physical Exam
-
Vital Signs:
Vital Signs
Temp Pulse Resp BP Pulse Ox
98.0 F 99 18 97/65 97
05/02/25 12:25 05/02/25 12:25 05/02/25 11:00 05/02/25 12:05/02/25 11:00
Respiratory:: Bilateral: Coarse
Lung Excursion:: Normal
Abdomen:: Soft
Bowel Sounds:: Normal
Extremity Edema:: +2: Bilateral:
Welsh Catheter: No
[2025-05-02] MEDS: LASIX 40 MG IV (16:21)
[2025-05-02] MEDS: TOPROL XL 50 MG PO (19:59)
[2025-05-02] MEDS: MELATONIN 5 MG PO (20:01)
[2025-05-03] VITALS (8 sets, daily range): BP systolic 88–108; BP diastolic 52–71; PULSE 109; O2SAT 96; BMI 36.1
[2025-05-03 07:52] LABS: Hematocrit 26.4 % (39.0-52.0); Hemoglobin 8.3 g/dL (13.0-18.0); Mean Corp Hgb Conc. 31.4 g/dL (33.0-37.0); Mean Corpuscular Volume 93.3 fL (80.0-94.0); Platelet Count 34 10^3/uL (130-400); Red Cell Dist. Width 19.6 % (11.5-14.5)
--- NOTE | 2025-05-03 08:07 | W.PN.CD ---
Today's Communication / Plan
-
IV lasix as able
Posisble switch to PO tomorrow weight is now about baseline 250 lbs
Impression / Plan
-
Slezg-ni-sedyjfq HFpEF: severe
- Echo 03/16/2025: LVEF 55-60%.
-weight up, LE edema noted. This is related to being off Lasix for renal dysfunction.
-agree with IV Lasix, which requires intensive monitoring.
- Continue Lasix 40 mg IV bid
-CHF education
SAMEERA on CKD:
-nephrology is consulted
- Continue to monitor with diuresis: improved
AFIB, persistent:
- Rate-controlled.
-continue metoprolol and follow telemetry. Follow BP's, which are on low end. He is not symptomatic.
-hold eliquis now that plt under 50
Anemia:
- s/p pRBC
-Heme/Onc consulted. He is seeing a specialist soon for Erdheim-[place] disease down at [place].
Pericardial effusion:
-small on MRI, small to moderate on CT. Not noted on recent echo.
- small on echo
Data:
Cardiac MRI 04/26/25: No MRI evidence for diffuse infiltrative myocardial disease. Global systolic LV function: Normal. Global systolic RV function: Normal. LV viability: Normal. Valvular disease: (1) Mild to moderate tricuspid regurgitation. (2)
Mild mitral regurgitation. Small pericardial effusion. Small bilateral pleural effusions. Small volume of upper abdominal ascites. Diffuse histiocytosis soft tissue infiltration of the kidneys. Mild hepatomegaly. Moderate splenomegaly.
Echo 03/16/25: Normal size and function with no regional wall motion abnormalities. LVEF is 55-60% by visual estimation. Mild concentric LVH. Normal right ventricular size and function. Mild mitral regurgitation. Insufficient TR for estimation of
PASP.
Physical Exam
Vital Signs/Labs
Vital Signs
Temp Pulse Resp BP Pulse Ox
98.4 F 106 20 88/59 96
0630/25 07:21 05/03/25 07:21 05/03/25 07:21 05/03/25 07:21 05/03/25 07:21
05/02/25 05/03/25 05/04/25
06:59 06:59 06:59
Actual Weight 250 lb 9 oz 251 lb 12.8 oz
05/03/25 07:23
PT 26.5 Sec (11.4-14.6) H 04/29/25 09:14
INR 2.43 04/29/25 09:14
APTT 37.0 Sec (23.4-35.0) H 04/29/25 09:14
Magnesium 1.9 mg/dl (1.6-2.3) 05/02/25 05:18
04/29/25
09:14
Gqy-C-Oljliyoknlp Pept 5590
Physical Exam
Constitutional: No acute distress and Comfortable
EENT: Anicteric
Cardiovascular: Rhythm/rate is irregular and Pedal edema present (2+)
Respiratory: Respiratory effort normal and Crackles Present
GI: Soft
Neuro/Psych: AO x 3
Data Reviewed
-
Date of Service: May 03, 2025
EKG: Tracing Personally Visualized and interpreted (af)
Echo: Report Reviewed by me
X-Ray/CT/US/MRI/NUC/PET: Report Reviewed by me
Labs: Labs Reviewed by me
[2025-05-03 09:34] LABS: Blood Urea Nitrogen 39 mg/dl (9-20); Calcium 7.6 mg/dl (8.4-10.2); Carbon Dioxide 21 mmol/L (22-30); Chloride 103 mmol/L (98-107); Estimated Creatinine Clearance 40 ml/min; Glucose 120 mg/dl (70-99); Magnesium 2.0 mg/dl (1.6-2.3); Potassium 3.4 mmol/L (3.5-5.1); Sodium 131 mmol/L (135-145); eGFR 37.12
[2025-05-03] MEDS: PROTONIX 40 MG PO (09:52)
[2025-05-03] MEDS: TOPROL XL PO (09:53)
[2025-05-03] MEDS: MIRALAX 17 GRAMS PO (09:54)
[2025-05-03] MEDS: COLACE 100 MG PO ×2 (09:54→20:25)
[2025-05-03] MEDS: SODIUM BICARBONATE 650 MG PO (09:54)
[2025-05-03] MEDS: FEOSOL 325 MG PO (09:55)
[2025-05-03] MEDS: LASIX IV (09:55)
[2025-05-03] MEDS: TIMOPTIC 0.5% OPHTHALMIC SOLUTION 1 DROP LEFT EYE ×2 (09:56→20:25)
[2025-05-03] MEDS: LASIX 40 MG IV ×2 (10:00→15:13)
--- NOTE | 2025-05-03 10:02 | W.PN.NEPH.PH ---
Today's Communication / Plan
-
lasix
Assessment/Plan
-
IMP:
Acute on chronic heart failure with preserved EF
Acute on CKD [id number] last 1.5 in March (Dr. Grimes)
Hypotension
Met acidosis
hypoantremia
Acute on chronic anemia.
Chronic thrombocytopenia.
Erdheim-halle disease -form of histiocytosis
Atrial fibrillation seems permanent
HLD
h/o K stone
GERD
Plan:
give IV lasix today, will tolerate down to SBP 90
follow BMP
I expect renal function to improve once he is on a better part of the starling curve
If BP dips below 90 consistently will need to add midodrine
continue bicarb for acidosis
weights stable last 4 days but he still examines overloaded
can reconsider SGLT2i at discharge
-
-
Date of Service: May 03, 2025
CC / HPI / ROS
-
Chief Complaint:
Shortness of breath edema
History of Present Illness:
Acute on chronic kidney disease with edema
Review of Systems:
Edema improved significantly with minimal shortness of breath
Labs
-
Labs:
WBC 6.9 10^3/uL (4.8-10.8) 05/03/25 07:23
RBC 2.83 10^6/uL (4.70-6.10) L 05/03/25 07:23
Hgb 8.3 g/dL (13.0-18.0) L 05/03/25 07:23
Hct 26.4 % (39.0-52.0) L 05/03/25 07:23
Plt Count 34 10^3/uL (130-400) L 05/03/25 07:23
Sodium 131 mmol/L (135-145) L 05/03/25 07:23
Potassium 3.4 mmol/L (3.5-5.1) L 05/03/25 07:23
Chloride 103 mmol/L (98-107) 05/03/25 07:23
Carbon Dioxide 21 mmol/L (22-30) L 05/03/25 07:23
BUN 39 mg/dl (9-20) H 05/03/25 07:23
Creatinine 1.8 mg/dL (0.7-1.3) H 05/03/25 07:23
eGFR 37.12 05/03/25 07:23
Glucose 120 mg/dl (70-99) H 05/03/25 07:23
Calcium 7.6 mg/dl (8.4-10.2) L 05/03/25 07:23
Cqq-H-Etetkbuaaws Pept 5590 pg/ml 04/29/25 09:14
Albumin 2.2 g/dl (3.5-5.0) L 05/02/25 05:18
Physical Exam
-
Vital Signs:
Vital Signs
Temp Pulse Resp BP Pulse Ox
98.4 F 106 20 94/64 96
05/03/25 07:21 05/03/25 09:53 05/03/25 07:21 05/03/25 09:53 05/03/25 07:21
--- NOTE | 2025-05-03 10:10 | PTCARENOTE ---
BP 94/64 manually. Nephro @bedside ordered to give IV lasix. Medication administered. POC ongoing, will continue to monitor.
--- NOTE | 2025-05-03 11:19 | VNURNOTE ---
Home Health Liaison met with patient at bedside to discuss [facility] nurse/therapy, visits, schedule and homebound status. Patient confirmed that he has a scale in the home. The patient requested this author speak w/his daughter Erin. Called Erin.
Explained services. She is familiar with services from her late . Daughter is agreeable and understands that visits at home will be 2-3 x per week to assess and teach medical management. Daughter aware that [facility] will contact them for start
of care in 1-2 days after discharge from .
[facility] referral accepted in [facility].
--- NOTE | 2025-05-03 15:00 | W.PN.HOSP.TC ---
Addendum entered and electronically signed by Katalina Willett MD 05/03/25 15:25:
I saw and evaluated the patient independently. I reviewed the resident�s note and agree with findings and plan as documented by Dr. Goldman.
GENERAL: well developed, well nourished, male in no apparent distress
HEENT: NC/AT--no O2 requirements
HEART: irreg irreg
LUNGS : clear to auscultation bilaterally
ABDOM: soft, nontender, nondistended, + bowel sounds
EXT: no cyanosis, clubbing--4+ LE edema bilaterally
NEUROLOGIC: grossly intact
Acute on chronic heart failure with preserved EF--had not been taking his lasix--apprec cards/renal--cont IV lasix (administration has been limited by low BP)--He had a cardiac MRI which shows no infiltration of the myocardium. He is now having a
diagnosis of histiocytosis and waiting to be evaluated at [facility]--Echo with normal EF and small anterior pericardial effusion
Acute kidney injury on chronic kidney disease stage III--Creatinine jumped from 1.5 last month to 2.0--perhaps due to cardiorenal syndrome--improving with diuresis--apprec renal/cards input--may need midodrine to augment BP
Acute on chronic anemia--s/p 3 units pRBC with bump to 8.3
Chronic thrombocytopenia-- Platelets 44 K. Follow closely daily and reevaluate oral anticoagulant use daily.
Erdheim-[place] disease --form of histiocytosis--dx recently -await [facility] 05/12/25 -outpatient CT shows infiltration of the kidneys raising concern of that involvement by histiocytosis-- Oncology input and recommendations noted
Persistent Atrial fibrillation (as per cards)--Rate controlled--Continue the beta-isidro and Eliquis if platelet count > 50K
DVT proph
code status -- full code
Original Note:
Today's Communication/Plan
-
Continue IV Lasix as tolerated.
Plan for PO medications tomorrow.
Assessment / Plan
Assessment / Plan
Assessment
This is an 84 y/o male with pmhx of chronic Heart Failure with Preserved Ejection Fraction, CKD stage 3A, persistent Afib on Eliquis, and recent diagnosis of Erdheim-Ol[place] disease who presented to the ED at the request of his PCP on 04/29/2025 for
shortness of breath, edema, dyspnea on exertion and a weight gain of approximately 12lbs in the past week after discontinuing furosemide 1.5 weeks prior.
Plan
Adzhq-kx-Rtqnzyf Heart Failure with preserved Ejection Fraction
-Continue IV Lasix 40mg BID with parameters to hold it with systolic BP of <90
SAMEERA with CKD stage 3B
-Will continue to monitor kidney function with BMP
Persistent afib
-Continue metoprolol for rate control
-Hold Eliquis now that platelet count is less than 50
Anemia:
-S/p 3 units packed RBC
Chronic thrombocytopenia
-Holding Eliquis due to decreased platelet count
-Erdheim-Olney disease
-Encouraged follow up with [facility] on 05/12/2025
Code Status -- full code
Anticipated Discharge: > 48 hours
Subjective/Interval History
-
Date of Service: May 03, 2025
Patient and daughter were present today. He reports feeling less short of breath today compared to yesterday, though still overall worse than how he felt 5-6 months ago. He has shortness of breath only upon exertion which resolves with rest in about
a minute.
Objective Data
-
Labs:
Laboratory Results
05/03/25
07:23
WBC 6.9
Hgb 8.3 L
Hct 26.4 L
Plt Count 34 L
Sodium 131 L
Potassium 3.4 L
Chloride 103
Carbon Dioxide 21 L
BUN 39 H
Creatinine 1.8 H
Glucose 120 H
Calcium 7.6 L
Vital Signs:
Vital Signs
Temp Pulse Resp BP Pulse Ox
97.5 F 103 18 108/52 97
05/03/25 14:48 05/03/25 14:48 05/03/25 14:48 05/03/25 14:48 05/03/25 14:48
I&O
05/02/25 05/03/25 05/04/25
06:59 06:59 06:59
Intake Total 1680 / 1680 1270 / 1270
Output Total 1250 / 1250 900 / 900
Balance 430 / 430 370 / 370
Review of Systems
-
History Source: Patient
Constitutional: Reports No Symptoms
Respiratory: Reports Trouble Breathing
Cardiac: Reports No Symptoms
Abdomen/GI: Reports No Symptoms
Physical Exam
-
General: Well Developed and Morbidly Obese
HEENT: Normocephalic
Respiratory: Clear to Auscultation
Cardiac: Irregular Rhythm
Musculoskeletal: Edema, Right Lower Extrem and Edema, Left Lower Extrem
Skin: Warm and Dry
Neuro: Awake, Alert and Oriented
Psych: Calm
--- NOTE | 2025-05-03 15:08 | CM ---
Patient seen at bedside with physicians on . Patient stated that he was planning to go home with [facility] and daughter to provide supports. CM will continue to follow for discharge planning needs.
Plan; home with [facility]
[2025-05-03] MEDS: TOPROL XL 50 MG PO (20:24)
[2025-05-03] MEDS: MELATONIN PO (23:13)
[2025-05-04] VITALS (7 sets, daily range): BP systolic 92–112; BP diastolic 60–70; PULSE 116; O2SAT 99; BMI 35.8
[2025-05-04 07:27] LABS: Hematocrit 25.1 % (39.0-52.0); Hemoglobin 8.3 g/dL (13.0-18.0); Mean Corp Hgb Conc. 33.1 g/dL (33.0-37.0); Mean Corpuscular Volume 90.0 fL (80.0-94.0); Platelet Count 36 10^3/uL (130-400); Red Cell Dist. Width 19.3 % (11.5-14.5)
[2025-05-04 07:45] LABS: Blood Urea Nitrogen 41 mg/dl (9-20); Calcium 7.5 mg/dl (8.4-10.2); Carbon Dioxide 20 mmol/L (22-30); Chloride 104 mmol/L (98-107); Estimated Creatinine Clearance 40 ml/min; Glucose 115 mg/dl (70-99); Magnesium 2.1 mg/dl (1.6-2.3); Potassium 3.6 mmol/L (3.5-5.1); Sodium 133 mmol/L (135-145); eGFR 37.12
[2025-05-04] MEDS: TOPROL XL PO (08:39)
[2025-05-04] MEDS: PROTONIX 40 MG PO (08:40)
[2025-05-04] MEDS: FEOSOL 325 MG PO (08:40)
[2025-05-04] MEDS: COLACE 100 MG PO ×2 (08:40→20:22)
[2025-05-04] MEDS: SODIUM BICARBONATE 650 MG PO (08:40)
[2025-05-04] MEDS: MIRALAX 17 GRAMS PO (08:41)
[2025-05-04] MEDS: TIMOPTIC 0.5% OPHTHALMIC SOLUTION 1 DROP LEFT EYE ×2 (08:41→20:24)
[2025-05-04] MEDS: LASIX 40 MG IV ×2 (08:46→16:57)
--- NOTE | 2025-05-04 09:46 | W.PN.CD ---
Today's Communication / Plan
-
IV lasix and midodrine
Impression / Plan
-
Elmhu-uc-fqleoep HFpEF: severe
- Echo 03/16/2025: LVEF 55-60%.
-weight up, LE edema noted. This is related to being off Lasix for renal dysfunction.
-agree with IV Lasix, which requires intensive monitoring.
- Continue Lasix 40 mg IV bid adding midodrine 5 mg tid for low BP
-CHF education
SAMEERA on CKD:
-nephrology is consulted; discussed with Dr Andino about above
- Continue to monitor with diuresis: improved
AFIB, persistent:
- Rate-controlled.
-continue metoprolol and follow telemetry. Follow BP's, which are on low end. He is not symptomatic.
-hold eliquis now that plt under 50
Anemia:
- s/p pRBC
-Heme/Onc consulted. He is seeing a specialist soon for Erdheim-[place] disease down at [place].
Pericardial effusion:
-small on MRI, small to moderate on CT. Not noted on recent echo.
- small on echo
Data:
Cardiac MRI 04/26/25: No MRI evidence for diffuse infiltrative myocardial disease. Global systolic LV function: Normal. Global systolic RV function: Normal. LV viability: Normal. Valvular disease: (1) Mild to moderate tricuspid regurgitation. (2)
Mild mitral regurgitation. Small pericardial effusion. Small bilateral pleural effusions. Small volume of upper abdominal ascites. Diffuse histiocytosis soft tissue infiltration of the kidneys. Mild hepatomegaly. Moderate splenomegaly.
Echo 03/16/25: Normal size and function with no regional wall motion abnormalities. LVEF is 55-60% by visual estimation. Mild concentric LVH. Normal right ventricular size and function. Mild mitral regurgitation. Insufficient TR for estimation of
PASP.
Physical Exam
Vital Signs/Labs
Vital Signs
Temp Pulse Resp BP Pulse Ox
97.6 F 108 18 95/60 98
07/01/25 08:04 05/04/25 08:46 05/04/25 08:04 05/04/25 08:46 05/04/25 08:04
05/03/25 05/04/25 05/05/25
06:59 06:59 06:59
Actual Weight 251 lb 12.8 oz 249 lb 7 oz
05/04/25 06:49
05/04/25 06:49
PT 26.5 Sec (11.4-14.6) H 04/29/25 09:14
INR 2.43 04/29/25 09:14
APTT 37.0 Sec (23.4-35.0) H 04/29/25 09:14
Magnesium 2.1 mg/dl (1.6-2.3) 05/04/25 06:49
04/29/25
09:14
Guk-L-Abwdbhuqsxq Pept 5590
Physical Exam
Constitutional: No acute distress and Comfortable
EENT: Anicteric
Cardiovascular: Rhythm/rate is irregular and Pedal edema present (1-2+)
Respiratory: Respiratory effort normal and Lungs clear to auscul.
GI: Soft
Neuro/Psych: AO x 3
Data Reviewed
-
Date of Service: May 04, 2025
EKG: Tracing Personally Visualized and interpreted (af)
Echo: Report Reviewed by me
Labs: Labs Reviewed by me
--- NOTE | 2025-05-04 10:21 | W.PN.NEPH.PH ---
Addendum entered and electronically signed by Ge Andino MD 05/04/25 10:25:
midodrine 5 TID added by cardiology
Original Note:
Today's Communication / Plan
-
diurese
Assessment/Plan
-
IMP:
Acute on chronic heart failure with preserved EF
Acute on CKD [id number] last 1.5 in March (Dr. Grimes)
Hypotension
Met acidosis
hypoantremia
Acute on chronic anemia.
Chronic thrombocytopenia.
Erdheim-halle disease -form of histiocytosis
Atrial fibrillation seems permanent
HLD
h/o K stone
GERD
Plan:
give IV lasix, will tolerate down to SBP 90
follow BMP
midodrine 2.5mg BID
continue bicarb for acidosis
goal weight 242#, but would switch to po diuretics at ~245#
start farxiga tomorrow if Cr stable
d/w patient and daughter
-
-
Date of Service: May 04, 2025
CC / HPI / ROS
-
Chief Complaint:
Shortness of breath edema
History of Present Illness:
Acute on chronic kidney disease with edema
SAMEERA/Cr stable 1.8
Na stable low 133
diuresing with IV lasix
Hgb stable low 8.3
BP remains low in the 90's systolic
Review of Systems:
edema improving with minimal shortness of breath
Labs
-
Labs:
WBC 6.5 10^3/uL (4.8-10.8) 05/04/25 06:49
RBC 2.79 10^6/uL (4.70-6.10) L 05/04/25 06:49
Hgb 8.3 g/dL (13.0-18.0) L 05/04/25 06:49
Hct 25.1 % (39.0-52.0) L 05/04/25 06:49
Plt Count 36 10^3/uL (130-400) L 05/04/25 06:49
Sodium 133 mmol/L (135-145) L 05/04/25 06:49
Potassium 3.6 mmol/L (3.5-5.1) 05/04/25 06:49
Chloride 104 mmol/L (98-107) 05/04/25 06:49
Carbon Dioxide 20 mmol/L (22-30) L 05/04/25 06:49
BUN 41 mg/dl (9-20) H 05/04/25 06:49
Creatinine 1.8 mg/dL (0.7-1.3) H 05/04/25 06:49
eGFR 37.12 05/04/25 06:49
Glucose 115 mg/dl (70-99) H 05/04/25 06:49
Calcium 7.5 mg/dl (8.4-10.2) L 05/04/25 06:49
Yva-X-Khxtlcxfwyx Pept 5590 pg/ml 04/29/25 09:14
Albumin 2.2 g/dl (3.5-5.0) L 05/02/25 05:18
Physical Exam
-
Vital Signs:
Vital Signs
Temp Pulse Resp BP Pulse Ox
97.6 F 108 18 95/60 98
05/04/25 08:04 05/04/25 08:46 05/04/25 08:04 05/04/25 08:46 05/04/25 08:04
Cardiovascular:: Regular rate and rhythm
Respiratory:: Bilateral: Coarse
Lung Excursion:: Normal
Abdomen:: Nontender and Soft
Bowel Sounds:: Normal
Extremity Edema:: +1: Bilateral:
--- NOTE | 2025-05-04 13:37 | W.PN.HOSP.TC ---
Addendum entered and electronically signed by Katalina Willett MD 05/04/25 14:06:
I saw and evaluated the patient independently. I reviewed the resident�s note and agree with findings and plan as documented by Dr. Goldman.
GENERAL: well developed, well nourished, male in no apparent distress
HEENT: NC/AT--no O2 requirements
HEART: irreg irreg
LUNGS : clear to auscultation bilaterally
ABDOM: soft, nontender, nondistended, + bowel sounds
EXT: no cyanosis, clubbing--3+ LE edema bilaterally
NEUROLOGIC: grossly intact
Acute on chronic heart failure with preserved EF--apprec cards/renal--cont IV lasix (administration has been limited by low BP), midodrine added by cards--He had a cardiac MRI which shows no infiltration of the myocardium. He is now having a
diagnosis of histiocytosis and waiting to be evaluated at [facility]--Echo with normal EF and small anterior pericardial effusion
Acute kidney injury on chronic kidney disease stage III--Creatinine jumped from 1.5 last month to 2.0--perhaps due to cardiorenal syndrome--improving with diuresis, down to 1.8, maybe new baseline--apprec renal/cards input--may need midodrine to
augment BP
Acute on chronic anemia--s/p 3 units pRBC with bump to 8.3
Chronic thrombocytopenia-- Platelets 44 K. Follow closely daily and reevaluate oral anticoagulant use daily.
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
Persistent Atrial fibrillation (as per cards)--Rate controlled--Continue the beta-isidro and Eliquis if platelet count > 50K
DVT proph
code status -- full code
Original Note:
Today's Communication/Plan
-
Continue IV Lasix, goal to possibly transition to oral Lasix tomorrow
Adjusted hold parameters for Lasixs to <93 systolic blood pressure
Assessment / Plan
Assessment / Plan
Assessment
This is an 84 y/o male with pmhx of chronic Heart Failure with Preserved Ejection Fraction, CKD stage 3A, persistent Afib on Eliquis, and recent diagnosis of Erdheim-[place] disease who presented to the ED at the request of his PCP on 04/29/2025 for
shortness of breath, edema, dyspnea on exertion and a weight gain of approximately 12lbs in the past week after discontinuing furosemide 1.5 weeks prior who was found to be fluid overloaded.
Plan
Bcyar-wr-Fievhzu Heart Failure with preserved Ejection Fraction
-Continue IV Lasix 40mg BID. Altered parameters today to hold it with systolic BP of <93, rather than <100. Goal to transition from IV to oral Lasix.
-Patient now on midodrine 5mg TID per faculty head's recommendations today to help increase blood pressure
SAMEERA with CKD stage 3B
-Will continue to monitor kidney function with BMP
Persistent afib
-Continue metoprolol for rate control
-Continue to hold Eliquis as platelet count continues to be less than 50
Anemia:
-S/p 3 units packed RBC
Chronic thrombocytopenia
-Continue to hold Eliquis due to decreased platelet count
-Erdheim-Osiel disease
-Encouraged follow up with [facility] on 05/12/2025
Code Status -- full code
Anticipated Discharge: 24 - 48 hours
Subjective/Interval History
-
Date of Service: May 04, 2025
He is doing well today. Yesterday with PT he was able to get up and walk from his bed down the mendoza and back without shortness of breath, improved from the day prior where he could not even get to the bathroom without being short of breath. He has
no other concerns or complaints today.
Objective Data
-
Labs:
Laboratory Results
05/04/25
06:49
WBC 6.5
Hgb 8.3 L
Hct 25.1 L
Plt Count 36 L
Sodium 133 L
Potassium 3.6
Chloride 104
Carbon Dioxide 20 L
BUN 41 H
Creatinine 1.8 H
Glucose 115 H
Calcium 7.5 L
Vital Signs:
Vital Signs
Temp Pulse Resp BP Pulse Ox
97.1 F 105 18 98/70 95
05/04/25 10:40 05/04/25 10:40 05/04/25 10:40 05/04/25 10:40 05/04/25 10:40
I&O
05/03/25 05/04/25 05/05/25
06:59 06:59 06:59
Intake Total 1270 / 1270 960 / 960 480 / 480
Output Total 900 / 900 750 / 750 750 / 750
Balance 370 / 370 210 / 210 -270 / -270
Review of Systems
-
History Source: Patient
Constitutional: Reports No Symptoms
Respiratory: Reports No Symptoms
Cardiac: Reports No Symptoms
Abdomen/GI: Reports No Symptoms
Neuro: Reports No Symptoms
Physical Exam
-
General: Well Developed, Well Nourished and Obese
HEENT: Normocephalic
Respiratory: Clear to Auscultation
Cardiac: S1/S2 and Irregular Rhythm
Musculoskeletal: Edema, Right Lower Extrem (Pitting) and Edema, Left Lower Extrem (Pitting)
Skin: Warm and Dry
Neuro: Awake, Alert and Oriented
Psych: Calm
--- NOTE | 2025-05-04 14:04 | W.PN.ONC2 ---
Today's Communication / Plan
-
discharge planning
OP PET & follow up with Dr. Jorgensen will be arranged upon discharge
Impression
Impression
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
anemia s/p 3U prbc during hospitalization, last 05/02 -Hgb stable >8g/dL
thrombocytopenia
Recurrent CHF (HFpEF)
Permanent atrial fibrillation
Stage 3b chronic kidney disease
Plan
Plan
Tx of CHF per cardiology.
Will collaborate with [facility] to consider eventual BRAF inhibitor
Imaging abnormalities including mesenteric edema/infiltration, mild hepatosplenomegaly on CT, moderate on cardiac MRI, and soft tissue infiltration of both kidneys.
Cardiac MRI and Bone scan E[facility]AN.
Has [facility] consult 05/12.
PET will be re-scheduled upon discharge
Will follow as needed.
Subjective/Objective
Subjective
feeling better, eager for discharge
ambulating with physical therapy
denies SOB at rest or RUIZ with ambulation
using bowel regimen for constipation
denies bleeding
Vital Signs:
Vital Signs
Temp Pulse Resp BP Pulse Ox
97.1 F 105 18 98/70 95
05/04/25 10:40 05/04/25 10:40 05/04/25 10:40 05/04/25 10:40 05/04/25 10:40
Lab Results:
Laboratory Data
WBC 6.5 10^3/uL (4.8-10.8) 05/04/25 06:49
Hgb 8.3 g/dL (13.0-18.0) L 05/04/25 06:49
Plt Count 36 10^3/uL (130-400) L 05/04/25 06:49
PT 26.5 Sec (11.4-14.6) H 04/29/25 09:14
INR 2.43 04/29/25 09:14
APTT 37.0 Sec (23.4-35.0) H 04/29/25 09:14
eGFR 37.12 05/04/25 06:49
Physical Exam
HEENT: Moist Mucous Membranes; No Jaundice
Cardiology: Irregular rate/rhythm
Pulmonary: Other (unlabored)
GI: Soft
Extremities: Pulses Present; No Edema
Neuro: Non Focal
--- NOTE | 2025-05-04 15:38 | CM ---
Patient seen at bedside on [facility] [address] and physicians. Patient for discharge home with [facility] to follow pending transition to PO medications per physicians. CM will continue to follow for discharge planning needs.
Plan; home with family and [facility]
[2025-05-04] MEDS: TOPROL XL 50 MG PO (20:20)
[2025-05-04] MEDS: MELATONIN 5 MG PO (20:24)
[2025-05-05] VITALS (8 sets, daily range): BP systolic 85–126; BP diastolic 55–70; PULSE 116; BMI 35.7
[2025-05-05 07:01] LABS: Hematocrit 25.1 % (39.0-52.0); Hemoglobin 7.9 g/dL (13.0-18.0); Mean Corp Hgb Conc. 31.5 g/dL (33.0-37.0); Mean Corpuscular Volume 92.3 fL (80.0-94.0); Platelet Count 36 10^3/uL (130-400); Red Cell Dist. Width 19.6 % (11.5-14.5)
[2025-05-05 07:15] LABS: Blood Urea Nitrogen 40 mg/dl (9-20); Calcium 7.6 mg/dl (8.4-10.2); Carbon Dioxide 24 mmol/L (22-30); Chloride 101 mmol/L (98-107); Estimated Creatinine Clearance 36 ml/min; Glucose 125 mg/dl (70-99); Magnesium 1.9 mg/dl (1.6-2.3); Potassium 3.2 mmol/L (3.5-5.1); Sodium 129 mmol/L (135-145); eGFR 32.71
--- NOTE | 2025-05-05 08:44 | W.PN.HOSP.TC ---
Addendum entered and electronically signed by Katalina Willett MD 05/05/25 15:50:
I saw and evaluated the patient independently. I reviewed the resident�s note and agree with findings and plan as documented by Dr. Goldman.
GENERAL: well developed, well nourished, male in no apparent distress
HEENT: NC/AT--no O2 requirements
HEART: irreg irreg
LUNGS : clear to auscultation bilaterally
ABDOM: soft, nontender, nondistended, + bowel sounds
EXT: no cyanosis, clubbing--2+ LE edema bilaterally
NEUROLOGIC: grossly intact
Acute on chronic heart failure with preserved EF--apprec cards/renal--cont IV lasix (administration has been limited by low BP), midodrine added by cards--He had a cardiac MRI which shows no infiltration of the myocardium. He is now having a
diagnosis of histiocytosis and waiting to be evaluated at [facility]--Echo with normal EF and small anterior pericardial effusion
Acute kidney injury on chronic kidney disease stage III--Creatinine jumped from 1.5 last month to 2.0--perhaps due to cardiorenal syndrome--improving with diuresis, down to 1.8, maybe new baseline--apprec renal/cards input--may need midodrine to
augment BP
hyponatremia--likely due to volume overload--monitor with diuresis
hypokalemia--replete
Acute on chronic anemia--s/p 3 units pRBC with bump
Chronic thrombocytopenia-- Platelets 36 K. Follow closely daily and reevaluate oral anticoagulant use daily.
Erdheim-Osiel disease --form of histiocytosis--dx recently -await [facility] 05/12/25 -outpatient CT shows infiltration of the kidneys raising concern of that involvement by histiocytosis-- Oncology input and recommendations noted
Persistent Atrial fibrillation (as per cards)--Rate controlled--Continue the beta-isidro and Eliquis if platelet count > 50K
DVT proph
code status -- full code
Original Note:
Today's Communication/Plan
-
Will continue to monitor weights to see when patient can be transitioned to oral furosemide.
Assessment / Plan
Assessment / Plan
Assessment
This is an 84 y/o male with pmhx of chronic Heart Failure with Preserved Ejection Fraction, CKD stage 3A, persistent Afib on Eliquis, and recent diagnosis of Erdheim-Hudson disease who presented to the ED at the request of his PCP on 04/29/2025 for
shortness of breath, edema, dyspnea on exertion and a weight gain of approximately 12lbs in the past week after discontinuing furosemide 1.5 weeks prior who was found to be fluid overloaded.
Plan
Rynme-yq-Osruxpm Heart Failure with preserved Ejection Fraction
-Continue IV Lasix 40mg BID, hold if Systolic blood pressure <93. Goal to transition from IV to oral Lasix when weight reaches 445lbs.
-Continue midodrine 5mg TID
SAMEERA with CKD stage 3B
-Will continue to monitor kidney function with BMP
Persistent afib
-Continue metoprolol for rate control. Morning dose of metoprolol was held for low blood pressure today.
-Continue to hold Eliquis as platelet count continues to be less than 50
Anemia
-S/p 3 units packed RBC
-No significant change in hematocrit and hemoglobin since yesterday
Chronic thrombocytopenia
-Continue to hold Eliquis due to decreased platelet count
-Erdheim-Osiel disease
-Encouraged follow up with [facility] on 05/12/2025
Code Status -- full code
Anticipated Discharge: 24 - 48 hours
Subjective/Interval History
-
Date of Service: May 05, 2025
He is doing well today. Yesterday with Physical Therapy he was able to get up and walk from his bed down the mendoza twice and back without SOB. He has no complaints today and is generally feeling much better. 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
and less swollen. He is optimistic he may be able to be discharged in time to celebrate 07 of May with his family, but also verbalized understanding that he may need more time before he can transition to oral medications.
Objective Data
-
Labs:
Laboratory Results
05/05/25
06:00
WBC 6.2
Hgb 7.9 L
Hct 25.1 L
Plt Count 36 L
Sodium 129 L
Potassium 3.2 L
Chloride 101
Carbon Dioxide 24
BUN 40 H
Creatinine 2.0 H
Glucose 125 H
Calcium 7.6 L
Vital Signs:
Vital Signs
Temp Pulse Resp BP Pulse Ox
98.1 F 105 17 85/55 96
05/05/25 07:19 05/05/25 07:19 05/05/25 07:19 05/05/25 07:19 05/05/25 07:19
I&O
05/04/25 05/05/25 05/06/25
06:59 06:59 06:59
Intake Total 960 / 960 1200 / 1200
Output Total 750 / 750 1825 / 1825
Balance 210 / 210 -625 / -625
Review of Systems
-
History Source: Patient
All other systems: Reviewed and negative
Constitutional: Reports No Symptoms
EENT: Reports No Symptoms Reported
Respiratory: Reports No Symptoms
Cardiac: Reports No Symptoms
Abdomen/GI: Reports No Symptoms
Musculoskeletal: Reports No Symptoms
Skin: Reports No Symptoms
Physical Exam
-
General: Well Developed, No Apparent Distress, Comfortable and Obese
HEENT: Normocephalic and Atraumatic
Respiratory: Clear to Auscultation
Cardiac: S1/S2 and Irregular Rhythm
Musculoskeletal: Edema, Right Lower Extrem (Pitting, decreased from yesterday) and Edema, Left Lower Extrem (Pitting, decreased from yesterday)
Skin: Warm and Dry
Neuro: Awake, Alert and Oriented
Psych: Calm
[2025-05-05] MEDS: PROTONIX 40 MG PO (09:15)
[2025-05-05] MEDS: COLACE 100 MG PO ×2 (09:15→21:27)
[2025-05-05] MEDS: SODIUM BICARBONATE 650 MG PO (09:15)
[2025-05-05] MEDS: LASIX IV (09:16)
[2025-05-05] MEDS: TIMOPTIC 0.5% OPHTHALMIC SOLUTION 1 DROP LEFT EYE ×2 (09:20→21:27)
--- NOTE | 2025-05-05 09:58 | W.PN.ONC2 ---
Today's Communication / Plan
-
Discharge planning
Impression
Impression
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
anemia s/p 3U prbc during hospitalization, last 05/02 -Hgb stable >8g/dL
thrombocytopenia
Recurrent CHF (HFpEF)
Permanent atrial fibrillation
Stage 3b chronic kidney disease
Plan
Plan
Tx of CHF per cardiology.
Will collaborate with [facility] to consider eventual BRAF inhibitor
Imaging abnormalities including mesenteric edema/infiltration, mild hepatosplenomegaly on CT, moderate on cardiac MRI, and soft tissue infiltration of both kidneys.
Cardiac MRI and Bone scan [facility].
Has [facility] consult 05/12.
PET and Dr. Jorgensen have been rescheduled by my office with pt daughter
Subjective/Objective
Subjective
no new complaints
Vital Signs:
Vital Signs
Temp Pulse Resp BP Pulse Ox
98.1 F 105 17 85/55 96
05/05/25 07:19 05/05/25 07:19 05/05/25 07:19 05/05/25 09:16 05/05/25 07:19
Lab Results:
Laboratory Data
WBC 6.2 10^3/uL (4.8-10.8) 05/05/25 06:00
Hgb 7.9 g/dL (13.0-18.0) L 05/05/25 06:00
Plt Count 36 10^3/uL (130-400) L 05/05/25 06:00
PT 26.5 Sec (11.4-14.6) H 04/29/25 09:14
INR 2.43 04/29/25 09:14
APTT 37.0 Sec (23.4-35.0) H 04/29/25 09:14
eGFR 32.71 05/05/25 06:00
Physical Exam
HEENT: Moist Mucous Membranes; No Jaundice
Cardiology: Irregular rate/rhythm
Pulmonary: Other (unlabored)
GI: Soft
Extremities: Pulses Present; No Edema
Neuro: Non Focal
[2025-05-05] MEDS: TOPROL XL 50 MG PO ×2 (10:36→21:27)
[2025-05-05] MEDS: TOPROL XL 25 MG PO ×2 (10:36→21:28)
--- NOTE | 2025-05-05 12:05 | W.PN.NEPH.PH ---
Today's Communication / Plan
-
Continue IV diuretics
Assessment/Plan
-
IMP:
Acute on chronic heart failure with preserved EF
Acute on CKD [id number] last 1.5 in March (Dr. Grimes)
Hypotension
Met acidosis
hypoantremia
Acute on chronic anemia.
Chronic thrombocytopenia.
Erdheim-halle disease -form of histiocytosis
Atrial fibrillation seems permanent
HLD
h/o K stone
GERD
Plan:
give IV lasix, will tolerate down to SBP 90
follow BMP
midodrine increased dose
Hold farxiga with creatinine of 2.
Continue diuretics another 24 hours then convert to p.o.
d/w patient and daughter
-
-
Date of Service: May 05, 2025
CC / HPI / ROS
-
Chief Complaint:
Shortness of breath edema
History of Present Illness:
Acute on chronic kidney disease with edema
SAMEERA/Cr stable 1.8
Na stable low 133
diuresing with IV lasix
Hgb stable low 8.3
BP remains low in the 90's systolic
Review of Systems:
edema improving with minimal shortness of breath
Labs
-
Labs:
WBC 6.2 10^3/uL (4.8-10.8) 05/05/25 06:00
RBC 2.72 10^6/uL (4.70-6.10) L 05/05/25 06:00
Hgb 7.9 g/dL (13.0-18.0) L 05/05/25 06:00
Hct 25.1 % (39.0-52.0) L 05/05/25 06:00
Plt Count 36 10^3/uL (130-400) L 05/05/25 06:00
Sodium 129 mmol/L (135-145) L 05/05/25 06:00
Potassium 3.2 mmol/L (3.5-5.1) L 05/05/25 06:00
Chloride 101 mmol/L (98-107) 05/05/25 06:00
Carbon Dioxide 24 mmol/L (22-30) 05/05/25 06:00
BUN 40 mg/dl (9-20) H 05/05/25 06:00
Creatinine 2.0 mg/dL (0.7-1.3) H 05/05/25 06:00
eGFR 32.71 05/05/25 06:00
Glucose 125 mg/dl (70-99) H 05/05/25 06:00
Calcium 7.6 mg/dl (8.4-10.2) L 05/05/25 06:00
Exj-Q-Yokzbjvdluy Pept 5590 pg/ml 04/29/25 09:14
Albumin 2.2 g/dl (3.5-5.0) L 05/02/25 05:18
Physical Exam
-
Vital Signs:
Vital Signs
Temp Pulse Resp BP Pulse Ox
98.2 F 115 18 101/70 95
05/05/25 10:55 05/05/25 10:55 05/05/25 10:55 05/05/25 10:55 05/05/25 10:55
Cardiovascular:: Regular rate and rhythm
Respiratory:: Bilateral: Coarse
Lung Excursion:: Normal
Abdomen:: Nontender and Soft
Bowel Sounds:: Normal
Extremity Edema:: +1: Bilateral:
--- NOTE | 2025-05-05 12:38 | W.PN.CD ---
Today's Communication / Plan
-
Discussed with nephro
Likely last day of IV diuresis
PO tomorrow
Increase metop to 75 mg bid for better HR control
Impression / Plan
-
Pguwc-ju-wbidvjs HFpEF: severe
- Echo 03/16/2025: LVEF 55-60%.
-weight up, LE edema noted. This is related to being off Lasix for renal dysfunction.
-agree with IV Lasix, which requires intensive monitoring.
- Continue Lasix 40 mg IV bid adding midodrine 5 mg tid for low BP - edema has seemed to improve
- likley stop midodrine tomorrow was used for diuresis
- PO tomorrow lasix
- discussed above with nephro
-CHF education
SAMEERA on CKD:
-nephrology is consulted; discussed with Dr Andino about above
- Continue to monitor with diuresis: improved
AFIB, persistent:
- Rate-controlled.
-Increased metoprolol to 75 bid. Follow BP's, which are on low end. He is not symptomatic.
-hold eliquis now that plt under 50
Anemia:
- s/p pRBC
-Heme/Onc consulted. He is seeing a specialist soon for Erdheim-Dougherty disease down at [place].
Pericardial effusion:
-small on MRI, small to moderate on CT. Not noted on recent echo.
- small on echo
Data:
Cardiac MRI 04/26/25: No MRI evidence for diffuse infiltrative myocardial disease. Global systolic LV function: Normal. Global systolic RV function: Normal. LV viability: Normal. Valvular disease: (1) Mild to moderate tricuspid regurgitation. (2)
Mild mitral regurgitation. Small pericardial effusion. Small bilateral pleural effusions. Small volume of upper abdominal ascites. Diffuse histiocytosis soft tissue infiltration of the kidneys. Mild hepatomegaly. Moderate splenomegaly.
Echo 03/16/25: Normal size and function with no regional wall motion abnormalities. LVEF is 55-60% by visual estimation. Mild concentric LVH. Normal right ventricular size and function. Mild mitral regurgitation. Insufficient TR for estimation of
PASP.
Physical Exam
Vital Signs/Labs
Vital Signs
Temp Pulse Resp BP Pulse Ox
98.2 F 115 18 101/70 95
05/05/25 10:55 05/05/25 10:55 05/05/25 10:55 05/05/25 10:55 05/05/25 10:55
05/04/25 05/05/25 05/06/25
06:59 06:59 06:59
Actual Weight 249 lb 7 oz 249 lb 2 oz
05/05/25 06:00
05/05/25 06:00
PT 26.5 Sec (11.4-14.6) H 04/29/25 09:14
INR 2.43 04/29/25 09:14
APTT 37.0 Sec (23.4-35.0) H 04/29/25 09:14
Magnesium 1.9 mg/dl (1.6-2.3) 05/05/25 06:00
04/29/25
09:14
Zfl-L-Pcqjqsrvkme Pept 5590
Physical Exam
Constitutional: No acute distress and Comfortable
EENT: Anicteric
Cardiovascular: Rhythm/rate is irregular and Pedal edema present (1+)
Respiratory: Respiratory effort normal and Lungs clear to auscul.
GI: Soft
Neuro/Psych: AO x 3
Data Reviewed
-
Date of Service: May 05, 2025
EKG: Tracing Personally Visualized and interpreted (af)
Echo: Report Reviewed by me
Labs: Labs Reviewed by me
--- NOTE | 2025-05-05 14:13 | PTCARENOTE ---
at [address] Conley after notifying [facility] resident who recommended that. patient's b/p this am 85/55, asymptomatic, but HR tachy in 120's with activity. He wants it to be given, will continue to monitor.
[2025-05-05] MEDS: MIRALAX 17 GRAMS PO (14:34)
--- NOTE | 2025-05-05 15:52 | WOUNDNOTE ---
RIGHT GREAT TOE
--- NOTE | 2025-05-05 15:58 | WOUNDNOTE ---
[facility] RN NOTE: Reviewed chart and met with patient. Patient reports traumatic wound to right great toe prior to admission. Patient reports hitting his toe with his walker about 3 weeks ago. Due to neuropathy, patient denies pain. Wound is shallow and
without drainage. Patient denies pain and there was no drainage. See worklist for measurements and additional details. Wound was cleaned with saline and covered with silicone border foam. Heels intact, patient turns in bed easily and ambulates with
walker. Sacrum intact. Recommended following up with a watch technician. RN updated. Will confirm orders. Will sign off.
[2025-05-05] MEDS: LASIX 40 MG IV (18:47)
[2025-05-05] MEDS: MELATONIN 5 MG PO (21:28)
[2025-05-06 03:05] VITALS: BP 83/57
[2025-05-06 06:00] VITALS: BMI 35.7
--- NOTE | 2025-05-06 06:31 | W.PN.HOSP.TC ---
Addendum entered and electronically signed by Katalina Willett MD 05/06/25 14:42:
I saw and evaluated the patient independently. I reviewed the resident�s note and agree with findings and plan as documented by Dr. Goldman.
GENERAL: well developed, well nourished, male in no apparent distress
HEENT: NC/AT--no O2 requirements
HEART: irreg irreg
LUNGS : clear to auscultation bilaterally
ABDOM: soft, nontender, nondistended, + bowel sounds
EXT: no cyanosis, clubbing--2+ LE edema bilaterally
NEUROLOGIC: grossly intact
Acute on chronic heart failure with preserved EF--apprec cards/renal--cont IV lasix (administration has been limited by low BP), midodrine added by cards--He had a cardiac MRI which shows no infiltration of the myocardium. He is now having a
diagnosis of histiocytosis and waiting to be evaluated at [facility]--Echo with normal EF and small anterior pericardial effusion
Acute kidney injury on chronic kidney disease stage III--Creatinine jumped from 1.5 last month to 2.0--perhaps due to cardiorenal syndrome-- maybe new baseline--apprec renal/cards input-- midodrine to augment BP
hyponatremia--likely due to volume overload--monitor with diuresis
hypokalemia--replete
Acute on chronic anemia--s/p 3 units pRBC with bump
Chronic thrombocytopenia-- Platelets 36 K. Follow closely daily and reevaluate oral anticoagulant use daily.
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
Persistent Atrial fibrillation (as per cards)--Rate controlled--Continue the beta-isidro and Eliquis if platelet count > 50K
DVT proph
code status -- full code
OK for d/c--cleared by cards/renal for d/c
Original Note:
Today's Communication/Plan
-
Discharging today
Assessment / Plan
Assessment / Plan
Assessment
This is an 84 y/o male with pmhx of chronic Heart Failure with Preserved Ejection Fraction, CKD stage 3A, persistent Afib on Eliquis, and recent diagnosis of Erdheim-Gilchrist disease who presented to the ED at the request of his PCP on 04/29/2025 for
shortness of breath, edema, dyspnea on exertion and a weight gain of approximately 12lbs in the past week after discontinuing furosemide 1.5 weeks prior who was found to be fluid overloaded.
Plan
Hkhfl-df-Pmgupcj Heart Failure with preserved Ejection Fraction
-Transitioned from IV to PO Lasix 40mg BID. He has been instructed to not take his lasix and call his account processor if his systolic blood pressure is below 90
-Continue midodrine 5mg TID
SAMEERA with CKD stage 3B
-Encouraged follow up with PCP
Pericardial Effusion
-Echo on 04/30/2025 reported his EF was 55-60% with a small pericardial effusion.
-Patient to follow up with PCP.
Hyponatremia
-Encouraged patient to follow up with his PCP
Persistent afib
-Continue metoprolol for rate control.
-Continue to hold Eliquis as platelet count continues to be less than 50. Patient has been instructed to complete a CBC 1 week from discharge, and to follow up with his PCP and account processor regarding the results and if he should resume Eliquis in
the outpatient setting.
Anemia
-S/p 3 units packed RBC
-No significant change in hematocrit and hemoglobin since yesterday
Chronic thrombocytopenia
-Continue to hold Eliquis after discharge due to decreased platelet count
-Erdheim-Gilchrist disease
-Encouraged follow up with [facility] on 05/12/2025
Code Status -- full code
Anticipated Discharge: Today
Subjective/Interval History
-
Date of Service: May 06, 2025
Patient was doing well when I went to see him. He reports continued improvement with his shortness of breath, and increased exercise tolerance from admission. He reports no concerns today and says it feels much easier to walk without all of the
fluid weight in his legs. He is excited to go home.
Objective Data
-
Labs:
Laboratory Results
05/06/25
06:00
WBC Pending
Hgb Pending
Hct Pending
Plt Count Pending
Sodium Pending
Potassium Pending
Chloride Pending
Carbon Dioxide Pending
BUN Pending
Creatinine Pending
Glucose Pending
Calcium Pending
Vital Signs:
Vital Signs
Temp Pulse Resp BP Pulse Ox
97.8 F 105 16 83/57 98
05/06/25 03:05 05/06/25 03:05 05/06/25 03:05 05/06/25 03:05 05/06/25 03:05
I&O
05/04/25 05/05/25 05/06/25
06:59 06:59 06:59
Intake Total 960 / 960 1200 / 1200 720 / 720
Output Total 750 / 750 1825 / 1825 650 / 650
Balance 210 / 210 -625 / -625 70 / 70
Review of Systems
-
History Source: Patient
All other systems: Reviewed and negative
Constitutional: Reports No Symptoms
Respiratory: Reports No Symptoms
Cardiac: Reports No Symptoms
Abdomen/GI: Reports No Symptoms
Musculoskeletal: Reports No Symptoms
Neuro: Reports No Symptoms
Physical Exam
-
General: Well Developed, No Apparent Distress, Comfortable and Obese
HEENT: Normocephalic and Atraumatic
Respiratory: Non Labored Respirations
Cardiac: S1/S2 and Irregular Rhythm
Musculoskeletal: Edema, Right Lower Extrem (Pitting) and Edema, Left Lower Extrem (Pitting)
Skin: Warm and Dry
Neuro: Awake, Alert and Oriented
Psych: Calm
[2025-05-06 07:15] VITALS: BP 92/63
[2025-05-06 07:26] LABS: Hematocrit 26.0 % (39.0-52.0); Hemoglobin 8.2 g/dL (13.0-18.0); Mean Corp Hgb Conc. 31.5 g/dL (33.0-37.0); Mean Corpuscular Volume 93.5 fL (80.0-94.0); Platelet Count 37 10^3/uL (130-400); Red Cell Dist. Width 19.1 % (11.5-14.5)
[2025-05-06] MEDS: TOPROL XL 50 MG PO (07:48)
[2025-05-06] MEDS: PROTONIX 40 MG PO (07:48)
[2025-05-06] MEDS: COLACE 100 MG PO (07:48)
[2025-05-06] MEDS: TOPROL XL 25 MG PO (07:48)
[2025-05-06] MEDS: TIMOPTIC 0.5% OPHTHALMIC SOLUTION 1 DROP LEFT EYE (07:49)
[2025-05-06] MEDS: LASIX IV (07:51)
[2025-05-06] MEDS: MIRALAX PO (07:51)
[2025-05-06] MEDS: SODIUM BICARBONATE 650 MG PO (07:53)
[2025-05-06 08:00] LABS: Blood Urea Nitrogen 47 mg/dl (9-20); Calcium 7.8 mg/dl (8.4-10.2); Carbon Dioxide 22 mmol/L (22-30); Chloride 101 mmol/L (98-107); Estimated Creatinine Clearance 34 ml/min; Glucose 121 mg/dl (70-99); Magnesium 2.0 mg/dl (1.6-2.3); Potassium 3.4 mmol/L (3.5-5.1); Sodium 130 mmol/L (135-145); eGFR 30.85
--- NOTE | 2025-05-06 08:25 | W.PN.CD ---
Today's Communication / Plan
-
would recommend transitioning to po lasix today will d/w nephrology
continue midodrine
hold Eliquis will need to reassess plt # as op
will add tubigrips
will arrange op follow up.
Impression / Plan
-
Iekyw-bm-pmrzaag HFpEF: severe
- Echo 03/16/2025: LVEF 55-60%.
-weight up, LE edema noted. This is related to being off Lasix for renal dysfunction.
-agree with IV Lasix, which requires intensive monitoring.
- I would suggest transitioning to PO lasix today
-I don't think he will tolerate being off midodrine at this time and be able to maintain his volume status.
- nephro dosing
-CHF education
SAMEERA on CKD:
-nephrology is consulted; may likely need to accept some azotemia to acheive appropriate volume status
- Continue to monitor with diuresis: improved
AFIB, persistent:
- Rate-controlled.
-Increased metoprolol to 75 bid. Follow BP's, which are on low end. He is not symptomatic.
-hold eliquis now that plt under 50, could be readdressed as op
Anemia:
- s/p pRBC
-Heme/Onc consulted. He is seeing a specialist soon for Erdheim-Conway disease down at [place].
Pericardial effusion:
-small on MRI, small to moderate on CT. Not noted on recent echo.
- small on echo
Subjective:
he is feeling great, wants to go home with Cami his daughter at the bedside
Data:
Cardiac MRI 04/26/25: No MRI evidence for diffuse infiltrative myocardial disease. Global systolic LV function: Normal. Global systolic RV function: Normal. LV viability: Normal. Valvular disease: (1) Mild to moderate tricuspid regurgitation. (2)
Mild mitral regurgitation. Small pericardial effusion. Small bilateral pleural effusions. Small volume of upper abdominal ascites. Diffuse histiocytosis soft tissue infiltration of the kidneys. Mild hepatomegaly. Moderate splenomegaly.
Echo 03/16/25: Normal size and function with no regional wall motion abnormalities. LVEF is 55-60% by visual estimation. Mild concentric LVH. Normal right ventricular size and function. Mild mitral regurgitation. Insufficient TR for estimation of
PASP.
Physical Exam
Vital Signs/Labs
Vital Signs
Temp Pulse Resp BP Pulse Ox
97.3 F 98 20 92/63 93
05/06/25 07:15 05/06/25 07:48 05/06/25 07:15 05/06/25 07:48 05/06/25 07:15
05/05/25 05/06/25 05/07/25
06:59 06:59 06:59
Actual Weight 249 lb 2 oz 249 lb
05/06/25 06:43
05/06/25 06:43
PT 26.5 Sec (11.4-14.6) H 04/29/25 09:14
INR 2.43 04/29/25 09:14
APTT 37.0 Sec (23.4-35.0) H 04/29/25 09:14
Magnesium 2.0 mg/dl (1.6-2.3) 05/06/25 06:43
04/29/25
09:14
Bsn-D-Sfpdjrmebvq Pept 5590
Physical Exam
Constitutional: No acute distress and Comfortable
Cardiovascular: Pedal edema is absent, JVD pressure is normal, Systolic murmur absent and Diastolic murmur absent
Respiratory: Respiratory effort normal, Lungs clear to auscul., Wheeze Absent, Crackles Absent and Rhonchi Absent
Neuro/Psych: AO x 3
Data Reviewed
-
Date of Service: May 06, 2025
Medical Decision Making: Review of Case with other Provider (d/w nephrology and medicine)
[2025-05-06 10:59] VITALS: BP 73/35; BP 92/64; PULSE 86
--- NOTE | 2025-05-06 11:52 | W.DCSUMMARY ---
Addendum entered and electronically signed by Katalina Willett MD 05/06/25 14:43:
Read, reviewed, and agree. See same day progress note for additional details. Time spent coordinating care, DC planning, review of DC plan of care with resident, transition of care, review of records in EMR, med rec, consults, notes, d/w
consultants, nursing, family, and CM = 33 minutes
Original Note:
Discharge Summary
Discharge Data
Date of Admission: 04/29/25
Date of Discharge: 05/06/25
-
Pending Results: No
Hospital Course
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
shortness of breath, edema, dyspnea on exertion and a weight gain of approximately 12lbs in the past week after discontinuing furosemide 1.5 weeks prior.
On admission he was started on IV furosemide, which was complicated by hypotension requiring midodrine. He was also found to have an Acute Kidney Injury with a creatinine of 2.0 (Baseline of 1.5). He was found to be anemic with a hemoglobin of 6.9
and a hematocrit of 21.7, requiring transfusion of 3 units of packed RBCs. His hemoglobin remained steady post transfusion for the remainder of the hospitalization. His platelets decreased to less than 50 on 05/01/2025, at which time his Eliquis was
held and remained held for the remainder of the hospitalization course. He continued to improve clinically with decreased shortness of breath on exertion and increased ability to exercise. He was transitioned from IV Furosemide to oral furosemide,
and discharged to home once medically stable. He was encouraged to follow up with his PCP and project consultant in less than 1 week from discharge.
Discharge Plan
-
Patient Disposition: Home with Home Care
Discharge Diagnosis/Procedures: Acute on chronic heart failure with preserved ejection fraction exacerbation, acute kidney injury on chronic kidney disease stage III, acute on chronic anemia, chronic thrombocytopenia, Erdheim-Whitehall disease,
permanent atrial fibrillation
Condition: Good
Diet: 2 Gram Sodium
Additional Diets: 1800 ml/day (60 oz)
Activity: As tolerated
Driving Restrictions: As prior to admission
Bathing Restrictions: None
Blood Work: CBC in 1 week (Follow up with PCP about platelet count and resuming Eliquis after completion)
Other Services: VN, PT and OT
Instructions: *CBC Heart Failure Instructions
Referrals:
Cara Covarrubias CRNP [Specified Professional Personl, Cardiology] - 05/19/25 1:40 pm
Gualberto Felix MD [Family Provider, Internal Medicine] - in less than 1 week
Additional Discharge Medication Instructions: If your systolic blood pressure is less than 90, you should NOT take your furosemide and contact your project consultant. We are stooping your Eliquis for now. If your platelet count rises above 50,000 you may
restart it with approval from cardiology.
Prescriptions:
New
midodrine 5 mg Tablet
5 mg PO TID@0800,1300,1800 Qty: 107 0RF
furosemide [Lasix] 40 mg tablet
40 mg PO BID Qty: 14 0RF
Continued
timolol 0.5 % Drops
1 drp LEFT EYE BID
ferrous sulfate 325 mg (65 mg iron) Tablet
325 mg PO DAILY
omeprazole 20 mg Tablet,Delayed Release (Dr/Ec)
20 mg PO DAILY
sodium bicarbonate 650 mg Tablet
650 mg PO DAILY
docusate sodium [Colace] 100 mg Capsule
100 mg PO BID
ipratropium bromide 42 mcg (0.06 %) spray,non-aerosol
2 spray INTRANASAL QID
fluticasone propionate 50 mcg/actuation [place],Suspension
1 spray INTRANASAL DAILY
metoprolol succinate 100 mg tablet extended release 24 hr
50 mg PO BID
Discontinued
Eliquis 2.5 mg Tablet
2.5 mg PO BID
Discharge Orders:
Discharge Patient (As Directed); Ordered 05/06/25
Ordered By: Yolande Goldman
Discharge Date and Time
Print Language: ALB[place]
[2025-05-06 12:43] VITALS: BP 101/70
== END 2025-05-06 13:21 | disposition home health service (06) | DRG 291 ==
LOC: 3 WEST ACU 13:11
PROVIDERS: Physician Assistant Medical; Specialist; ADMITTING PHYSICIAN Internal Medicine; ATTENDING PHYSICIAN Internal Medicine; CONSULT PHYSICIAN Internal Medicine; CONSULT PHYSICIAN Internal Medicine Hematology & Oncology; EMERGENCY PHYSICIAN Student in an Organized Health Care Education/Training Program; FAMILY PHYSICIAN Internal Medicine Geriatric Medicine
PROC: 30233N1 Transfusion of Nonautologous Red Blood Cells into Peripheral Vein, Percutaneous Approach (ICD-10-PCS; 2025-04-29)
DX: I13.0 Hypertensive heart and chronic kidney disease with heart failure and stage 1 through stage 4 chronic kidney disease, or unspecified chronic kidney disease (principal); I50.33 Acute on chronic diastolic (congestive) heart failure; C91.10 Chronic lymphocytic leukemia of B-cell type not having achieved remission; E87.1 Hypo-osmolality and hyponatremia; D76.3 Other histiocytosis syndromes; E87.22 Chronic metabolic acidosis; N17.9 Acute kidney failure, unspecified; I31.39 Other pericardial effusion (noninflammatory); I48.19 Other persistent atrial fibrillation; I95.9 Hypotension, unspecified; D69.6 Thrombocytopenia, unspecified; D50.9 Iron deficiency anemia, unspecified; E88.89 Other specified metabolic disorders; E78.5 Hyperlipidemia, unspecified; E66.01 Morbid (severe) obesity due to excess calories; R16.2 Hepatomegaly with splenomegaly, not elsewhere classified; N18.31 Chronic kidney disease, stage 3a; G62.9 Polyneuropathy, unspecified; K21.9 Gastro-esophageal reflux disease without esophagitis; K22.70 Barrett's esophagus without dysplasia; Z79.01 Long term (current) use of anticoagulants; Z90.49 Acquired absence of other specified parts of digestive tract; Z87.891 Personal history of nicotine dependence; Z90.79 Acquired absence of other genital organ(s); Z68.35 Body mass index [BMI] 35.0-35.9, adult; Z80.42 Family history of malignant neoplasm of prostate; Z87.442 Personal history of urinary calculi
CPT/HCPCS: 93308; 36430; 71045; 71250; 74176; 75561; 78306; 80048; 80053; 83735; 83880; 84484; 85025; 85027; 85610; 85730; 86850; 86900; 86901; 86920; 93005; 96374; 97116; 97163; 97167; 97535; 99291; A9503; A9585; P9016